=== PATIENT | male | born 1980 | race African-American/Black ===

== ENCOUNTER 2025-01-07 10:59 | Outpatient (AMB) | payer OTHER, SELFPAY ==
--- NOTE | 2025-01-07 11:05 | HO.NEPHOV ---
Vital Signs 01/07/25 11:11 Height 6 ft 2 in Weight 336 lb BMI 43.1 BP 140/100 H Blood Pressure Location Lt brachial Position Sitting Pulse 78 Pulse Source Pulse Oximeter Pulse Oximetry (%) 97 Oxygen Delivery Method Room Air Intake Visit Reasons: ENP: NORY-Manjeet [employer] Agent Required: No Accompanied by: Self / Same As Patient Allergies No Known Allergies Allergy (Verified 01/19/25 09:31) HPI Comments Details: I had the pleasure of seeing Sangeeta in consultation for chronic kidney disease and hypertension. He recently had a hospitalization due to acute on chronic systolic heart failure , hypertensive emergency, pulmonary edema as well as acute kidney injury. He had been noncompliant with medications prior to this. He has high BMI and has obstructive sleep apnea. He is prediabetic. His recent echocardiogram showed moderate global hypokinesis. He has been started on labetalol, amlodipine, isosorbide, Lasix and Farxiga. He also had been referred to Pulmonary. His serum creatinine was 2.78 during his recent hospitalization which had improved to 1.6 at discharge. He is trying to be compliant with the diet and medications. He denies chest pain, shortness of breath, paroxysmal nocturnal dyspnea, urinary symptoms or orthostasis. He denies taking nonsteroidal anti-inflammatories on a regular basis. He does not have any epistaxis, hemoptysis, hematemesis, melena, joint swellings. He denies having any proteinuria. He is concerned about his systolic heart failure as well as CKD. [facility] Medical History (Updated 01/25/25 @ 20:42 by Jamin Montague MD) Pre-diabetes Hypertriglyceridemia MARANDA (obstructive sleep apnea) Morbid obesity Surgical History (Updated 01/07/25 @ 11:07 by Jodee Guillory MA) History of ankle surgery Family History (Updated 01/07/25 @ 11:08 by Jodee Guillory MA) Mother Thyroid disease Maternal Grandmother Diabetes Hypertension Kidney disease Social History (Updated 01/19/25 @ 09:36 by Zofia Head LPN) Alcohol intake: never Patient Tobacco Use Status: Former Tobacco user Substance Use Type: Marijuana Review of Systems Const All systems reviewed & are unremarkable except as noted in HPI and below Physical Exam Vital Signs: Last Vital Signs Pulse 78 01/07/25 11:11 BP 140/100 H 01/07/25 11:11 Pulse Ox 97 01/07/25 11:11 Oxygen Delivery Method Room Air 01/07/25 11:11 BMI result Body Mass Index 43.1 Const General: comfortable and no acute distress Orientation/consciousness: patient oriented x3 HEENT Head: Yes normocephalic Mouth: Normal oral and palatal mucosa present Eyes EOM: EOMs intact bilaterally Neck Neck: Yes supple Resp Auscultation: clear to auscultation bilaterally Cardio Jugular venous distension: no JVD Rate: regular rate GI Palpation (GI): Soft to palpation Auscultation: normal bowel sounds General: Yes no CVA tenderness Back/Spine/Pelvis Back: no CVA tenderness Skin General skin exam: no rashes or lesions noted Neuro General: patient oriented x3 and moves all extremities Extrem General: Yes no pedal edema Results Reviewed Nephrology Results: No Data to Display Assessment & Plan Assessment & Plan (1) NORY (acute kidney injury): Code(s): N17.9 - Acute kidney failure, unspecified Category: Medical (2) CKD stage 3a, GFR 45-59 ml/min: Code(s): N18.31 - Chronic kidney disease, stage 3a Category: Medical (3) Hypertension: Code(s): I10 - Essential (primary) hypertension Category: Medical Qualifiers: Hypertension type: primary hypertension Qualified Code(s): I10 - Essential (primary) hypertension Plan Chad has baseline CKD stage 3 from hypertensive nephropathy. He has history of systolic heart failure. His recent ejection fraction was 35%. He recently had NORY on CKD due to cardiorenal syndrome. At that time he was in hypertensive emergency, pulmonary edema and NORY. With the diuresis and continued supportive care his serum creatinine has settled to baseline of 1.6. He is unsure whether he has proteinuria. He is on appropriate medications. He needs to lose weight, keep up with a low-sodium diet, be compliant with his medications as well as CPAP. We need to rule out any infiltrative myocardial disease given systolic dysfunction as well as CKD. We shall continue to optimize his medications to keep his blood pressure at goal and preserve his renal function. He will be a great candidate for GLP agonist. All these have been explained in detail. Follow-up lab work has been ordered and answered all questions Orders: Orders Electrolytes 3 Weeks N17.9 - Acute kidney failure, unspecified, N18.31 - Chronic kidney disease, stage 3a, I10 - Essential (primary) hypertension Blood Urea Nitrogen 3 Weeks N17.9 - Acute kidney failure, unspecified, N18.31 - Chronic kidney disease, stage 3a, I10 - Essential (primary) hypertension Creatinine 3 Weeks N17.9 - Acute kidney failure, unspecified, N18.31 - Chronic kidney disease, stage 3a, I10 - Essential (primary) hypertension Complete Blood Count Auto Diff 3 Weeks N17.9 - Acute kidney failure, unspecified, N18.31 - Chronic kidney disease, stage 3a, I10 - Essential (primary) hypertension Immunofixation, Random Urine 3 Weeks N17.9 - Acute kidney failure, unspecified, N18.31 - Chronic kidney disease, stage 3a, I10 - Essential (primary) hypertension Calcium 3 Weeks N17.9 - Acute kidney failure, unspecified, N18.31 - Chronic kidney disease, stage 3a, I10 - Essential (primary) hypertension Immunofixation Pnl, Serum 3 Weeks N17.9 - Acute kidney failure, unspecified, N18.31 - Chronic kidney disease, stage 3a, I10 - Essential (primary) hypertension Protein Creatinine Ratio, Ur 3 Weeks N17.9 - Acute kidney failure, unspecified, N18.31 - Chronic kidney disease, stage 3a, I10 - Essential (primary) hypertension Coding Level of Care Code New Pt Level 4 (03413) Diagnoses NORY (acute kidney injury) N17.9 CKD stage 3a, GFR 45-59 ml/min N18.31 Primary hypertension I10 Hypertension type: primary hypertension
[2025-01-07 11:11] VITALS: BP 140/100; PULSE 78; O2SAT 97; BMI 43.1
== END 2025-01-07 11:50 | disposition home or self-care (01) ==
LOC: HO.HKAS 10:59
PROVIDERS: PCP Internal Medicine; Visit Provider Internal Medicine Nephrology
DX: N17.9 Acute kidney failure, unspecified (principal); N18.31 Chronic kidney disease, stage 3a; I10 Essential (primary) hypertension
CPT/HCPCS: 99204

== ENCOUNTER → 2025-01-07 10:59 | Outpatient (BNVA) | payer OTHER, SELFPAY | PROVIDERS: PCP Internal Medicine; Visit Provider Internal Medicine Nephrology | DX: I12.9 Hypertensive chronic kidney disease with stage 1 through stage 4 chronic kidney disease, or unspecified chronic kidney disease (principal); N18.31 Chronic kidney disease, stage 3a; N17.9 Acute kidney failure, unspecified | CPT/HCPCS: 99202 ==

== ENCOUNTER 2025-01-19 09:11 | Outpatient (AMB) | payer OTHER, SELFPAY ==
[2025-01-19 09:26] VITALS: BP 156/88; PULSE 84; O2SAT 98; BMI 42.9
--- NOTE | 2025-01-19 09:26 | A.OFFVIS_ITS ---
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 Engineer Required: No Shed Hand: Shed Hand offered & declined Accompanied by: Self / Same As Patient Allergies No Known Allergies Allergy (Verified 01/19/25 09:31) Medication List - Last Reconciled 01/19/25 by Zofia Head LPN amlodipine 10 mg PO DAILY dapagliflozin propanediol (Farxiga) 10 mg PO DAILY furosemide 20 mg PO DAILY hydralazine 25 mg PO TID isosorbide mononitrate ER 30 mg PO BID labetalol 200 mg PO BID spironolactone 25 mg PO DAILY HPI HPI Obstructive sleep apnea: Details: Sangeeta is a pleasant 44 year old male, former smoker with less than 5 pack year history, with underlying severe MARANDA, HTN and CHF LVEF 30-35%. He was referred by PCP for pulmonary evaluation for MARANDA. His last sleep study was in 2013 which revealed severe MARANDA, AHI 76, and started on CPAP therapy. Unfortunately patient has been without CPAP therapy reportedly due to supply issues, recently admitted for possible cardiorenal failure. He is under the care of cardiology and nephrology. He currently has a Resmed Airsense 11, from 3 years ago he believes, which he brought into office today missing tubing. Reviewed Airview shadia which reflected last use in March/April 2024, revealing compliance at that time. He is unaware of recommended pressures but states he has self adjusted to [id number]. When he was previously using consistently he was benefitting from therapy. He currently denies any respiratory symptoms. [facility] Medical History (Updated 01/19/25 @ 16:42 by Kimberly Larson NP) Pre-diabetes Hypertriglyceridemia MARANDA (obstructive sleep apnea) Morbid obesity Surgical History (Updated 01/07/25 @ 11:07 by Jodee Guillory MA) History of ankle surgery Family History (Updated 01/07/25 @ 11:08 by Jodee Guillory MA) Mother Thyroid disease Maternal Grandmother Diabetes Hypertension Kidney disease Social History (Updated 01/19/25 @ 09:36 by Zofia Head LPN) Alcohol intake: never Patient Tobacco Use Status: Former Tobacco user Substance Use Type: Marijuana Review of Systems Const Denies chills, Denies excessive sweating, Denies fever(s), Denies headache(s) and Denies night sweats Eyes Denies dry eyes, Denies irritation and Denies itchy eyes ENT Reports Normal hearing present, Denies headache(s), Denies nasal congestion, Denies nasal discharge, Denies post nasal drip and Denies sore throat Card Denies chest pain, Denies chest pain at rest, Denies chest pain with activity, Denies claudication, Denies leg edema, Denies dyspnea, Denies dyspnea on exertion, Denies orthopnea and Denies paroxysmal nocturnal dyspnea Resp Denies chest congestion, Denies cough, Denies excessive phlegm production, Denies pain on inspiration, Denies pain with cough, Denies dyspnea, Denies dyspnea on exertion, Denies stridor and Denies wheezing Musc Denies myalgias Neuro Reports Normal hearing present and Denies headache(s) Endo Denies excessive sweating Sampson/Lymph Denies lymphadenopathy Aller/Immun Denies itchy eyes, Denies seasonal rhinorrhea and Denies wheezing Physical Exam Vital Signs: Last Vital Signs Pulse 84 01/19/25 09:26 BP 156/88 H 01/19/25 09:26 Pulse Ox 98 01/19/25 09:26 Oxygen Delivery Method Room Air 01/19/25 09:26 BMI result Body Mass Index 42.9 Const General: cooperative, healthy appearing, comfortable, no acute distress, well developed and alert Nutritional Appearance: obese Orientation/consciousness: patient oriented x3 Limitations: no limitations HEENT Head: Yes normal to inspection, Yes normocephalic and Yes atraumatic Ears: hearing grossly normal bilaterally and external ears normal Eyes General: appearance normal, both eyes and all related structures Eyelids: Yes eyelids normal Sclerae: sclerae normal EOM: EOMs intact bilaterally Neck Neck: Yes normal visual inspection and Yes no lymphadenopathy Lymphatic: no lymphadenopathy noted Chest Chest palpation & inspection: normal inspection of the chest Resp Effort & Inspection: normal respiratory effort, able to speak in complete sentences, no audible wheezes, no cough, no stridor, not tachypneic, no tripod positioning and no use of accessory muscles Auscultation: clear to auscultation bilaterally Cardio Jugular venous distension: no JVD Rate: regular rate Rhythm: regular rhythm Skin Other: warm, dry General skin exam: no rashes or lesions noted Neuro General: patient oriented x3 Cranial nerves: Yes Normal hearing present Cognition (Neuro): normal cognition Gait exam (Neuro): Normal gait present Extrem General: Yes normal to inspection, Yes capillary refill normal, Yes no clubbing, cyanosis or edema and Yes no pedal edema Psych Appearance: grossly normal and well kempt Speech and movement: Normal speech and movement present and Clear speech present Affect: normal affect Attitude: cooperative Thought process: Normal thought process present Thought content: Normal thought content present Insight: Good insight present (Psych) Judgement: Good judgement present (Psych) Assessment & Plan Assessment & Plan (1) Severe obstructive sleep apnea: Code(s): G47.33 - Obstructive sleep apnea (adult) (pediatric) Category: Medical (2) Daytime somnolence: Code(s): R40.0 - Somnolence Category: Medical Plan Sangeeta presents for pulmonary evaluation for known h/o severe MARANDA. He is motivated to be compliant but will need updated sleep study to ensure optimal pressures as well as supply order. Will send for repeat home sleep study, as he was reluctant to have in lab study. Prior study performed in 2013, and patient has lost approximately 50lbs since then, will likely need in lab titration study. All questions were answered and patient is in agreement of plan. Will follow up to review results or sooner if needed. Orders: Orders RT home sleep study Today R40.0 - Somnolence Coding Level of Care Code New Pt Level 3 (64843) Diagnoses Severe obstructive sleep apnea G47.33 Daytime somnolence R40.0
--- OUTSIDE RECORDS SUMMARY | 2025-01-19 10:07 | XMS_ITS | Encounter Summary ---
Author Organization [facility] Address [address] [place] [address] Care Team Providers Care Woven Paper Hat Mender Name Role Phone Jeff Vale MD Primary Care Provider [phone] Encounter Details Date Type Department Care Team (Late st Contact Info) Description 12/29/2024 Telephone Internal Medicine - [place] [address] [place] [phone] Jeff Vale MD [address] [place] [address] Social History Tobacco Use Types Packs/Day Years Used Date Smoking Tobacco: Former Cigarettes Q uit: 10/14/2011 Alcohol Use Standard Drinks/Week Comments No 0 (1 standard drink = 0.6 oz pur e alcohol) Sex and Gender Information Value Date Recorded Sex Assigned at Not on file Legal Sex Male 5:39 PM EST Gender Identity Not on file Sexual Orientation Not on file documented as of this encounter Progress Notes * Renee Rg MA - 12/29/2024 3:20 PM EDT -Last office notes and insurance inf faxed to [facility] Fax: -[phone] * Jenifer Fernando - 12/29/2024 2:52 PM EDT Fax to [facility] Last office Copy of insurance card Fax- [phone] documented in this encounter Plan of Treatment Upcoming Encounters Date Type Department Care Team (Late st Contact Info) Description 03/24/2025 3:00 PM EDT Appointment [facility] Endoscopy [address] [place] [phone] Jeet Galaviz DO [address] [place] [address] 06/07/2025 10:00 AM EDT Ancillary Procedure [facility] Cardiology [facility] [address] [place] [phone] 07/21/2025 10:10 AM EDT Office Visit [facility] Cardiology [facility] [address] [place] [phone] Deep Albrecht NP [address] [place] [address] [address] [place] [address] documented as of this encounter Visit Diagnoses Not on filedocumented in this encounter Additional Health Concerns Infection Onset Date Last Indicated Resolved Time COVID-19 12/09/2024 12/09/2024 01/08/2025 7:06 PM EDT documented as of this encounter Care Teams Woven Paper Hat Mender Relationship Specialty Start Date End Date Jeff Vale MD [address] [facility] [address] [place] [address] PCP - General Internal Medicine 12/02/24 documented as of this encounter
--- OUTSIDE RECORDS SUMMARY | 2025-01-19 10:07 | XMS_ITS | Clinical Summary ---
Author Organization [facility] Address [address] [address] Phone Care Team Providers Care Veneer Measurer Name Role Phone Jose Etienne Reid DO Primary Care Provide r Allergies Active Allergy Reactions Criticality Noted Date Comments Pollen Extract Other (see comments) 11/22/2020 Medications amLODIPine (NORVASC) 10 MG tablet Take 1 tablet (10 mg total) by mouth 1 (one) time each day 90 tablet 3 03/01/2021 Active lisinopril (PRINIVIL,ZESTRI L) 30 MG tablet Take 1 tablet (30 mg total) by mouth 1 (one) time each day 90 tablet 3 03/01/2021 Active Active Problems Problem Noted Date Diagnosed Date Morbid obesity 12/28/2020 Hypertensive nephrosclerosis 12/28/2020 Obstructive sleep apnea syndrome 12/28/2020 Proteinuria, not otherwise specified 12/28/2020 Acute kidney failure, not otherwise specified Stage 3a chronic kidney disease 11/22/2020 Hypertension 11/22/2020 Resolved Problems Problem Noted Date Diagnosed Date Resolved Date Hypertensive renal disease 11/22/2020 0 03/01/2021 Renal function tests outside reference range 12/28/2020 Family History Relation Status Comments Father Unknown Mother Unknown Social History Tobacco Use Types Packs/Day Years Used Date Smoking Tobacco: Never Smokeless Tobacco: Never Alcohol Use Standard Drinks/Week Comments Yes 0 (1 standard drink = 0.6 oz pur e alcohol) Sex and Gender Information Value Date Recorded Sex Assigned at Not on file Legal Sex Male 4:58 PM EST Gender Identity Not on file Sexual Orientation Not on file Last Filed Vital Signs Vital Sign Reading Time Taken Comments Blood Pressure 156/82 03/01/2021 11:45 AM EDT Pulse 96 03/01/2021 11:45 AM EDT Temperature - - Respiratory Rate - - Oxygen Saturation 97% 03/01/2021 11:45 AM EDT Inhaled Oxygen Concentration - - Weight 153 kg (337 lb) 03/01/2021 11:45 AM EDT Height 185.4 cm (6' 1 ) 03/01/2021 11:45 AM EDT Body Mass Index 44.46 03/01/2021 11:45 AM EDT Plan of Treatment Health Maintenance Due Date Last Done Comments Pneumococcal Vaccine: Pediat rics (0 to 5 Years) and At-Risk Patients (6 to 64 Years) (1 of 2 - PCV) 1986 Hepatitis B Vaccine (1 of 3 - 19+ 3-dose series) 09/11 Influenza Vaccine (Season Ended) 2025 Procedures Procedure Name Priority Date/Time Associated Diagnosis Comments BASIC METABOLIC PANEL (BMP) (EXTERNAL LAB ENTRY) Routine 12/21/2024 BASIC METABOLIC PANEL (BMP) (EXTERNAL LAB ENTRY) Routine 12/12/2024 BASIC METABOLIC PANEL (BMP) (EXTERNAL LAB ENTRY) Routine 12/09/2024 from Last 3 Months Results * Basic Metabolic Panel (BMP) (12/21/2024) Only the most recent of3 resultswithin the time period is included. Sodium 141 mEq/L Potassium 4.7 mEq/L Chloride 106 Carbon Dioxide 18 mmol/L BUN 30 mg/dL Creatinine 2.35 mg/dL Glucose 74 mg/dL eGFR Non-Afr [place]orran 34 12/21/2024 us Historical Provider LAB BLOOD ORDERABLES Elisabet l Result from Last 3 Months Insurance [facility] MEDICAID Care Teams Veneer Measurer Relationship Specialty Start Date End Date Etienne Wharton DO [address] [facility] [address] [place] [address] PCP - General Internal Medicine 03/01/21
--- OUTSIDE RECORDS SUMMARY | 2025-01-19 10:07 | XMS_ITS | Clinical Summary ---
Author Organization [address] [facility] Address [address] [place] [phone] Phone Care Team Providers Care Project Engineering Director Name Role Phone Jeff Vale MD Primary Care Provider [phone] Allergies Active Allergy Reactions Criticality Noted Date Comments Bee Pollen Other 11/22/2020 Medications amLODIPine (NORVASC) 10 mg tablet Take 1 tablet (10 mg total) by mouth 1 (one) time each day. Active dapagliflozin propanediol (FARXIGA) 10 mg tablet Take 1 tablet (10 mg total) by mouth 1 (one) time each day. Active furosemide (LASIX) 20 mg tablet Take 1 tablet (20 mg total) by mouth 1 (one) time each day. Active isosorbide dinitrate (ISORDIL) 30 mg tablet Take 1 tablet (30 mg total) by mouth 1 (one) time each day. Active spironolactone (ALDACTONE) 25 mg tablet Take 1 tablet (25 mg total) by mouth 1 (one) time each day. Active labetaloL (NORMODYNE) 200 mg tablet Take 1 tablet (200 mg total) by mouth 2 (two) times a day. 60 each 12/24/19 25 026 Active losartan (Cozaar) 50 mg tablet Take 1 tablet (50 mg total) by mouth 1 (one) time each day. 30 each 12/31/19 026 Active Additional Information Patient not taking.Reported on 01/05/2025 hydrALAZINE (APRESOLINE) 25 mg tablet Take 1 tablet (25 mg total) by mouth 3 (three) times a day. Active acetaminophen (TYLENOL) 325 mg tablet Take 1 tablet (325 mg total) by mouth every 4 (four) hours if needed for mild pain. 025 Discontinued(T herapy completed) amoxicillin (AMOXIL) 500 mg capsule Take 1 capsule (500 mg total) by mouth every 12 (twelve) hours. 2 times a day for 5 days 025 Discontinued(T herapy completed) benzocaine (AMERICAINE) 20 % topical spray Apply 1 spray topically if needed for mild pain. 025 Discontinued(T herapy completed) metoprolol tartrate (LOPRESSOR) 50 mg tablet Take 1 tablet (50 mg total) by mouth 1 (one) time each day. 025 Discontinued Active Problems Problem Noted Date Diagnosed Date Stage 3 chronic kidney disease 01/05/2025 Assessment & Plan (01/05/2025 1:00 PM EDT): He is followed by Dr. Jennings of the nephrology service. Recent blood tests were completed at [facility]. A note will be sent to his blower room attendant regarding his condition. He sees Dr. Montague later this week. Consideration should be given to starting Entresto with close monitoring of renal parameters. Acute systolic CHF (congestive heart failure) Assessment & Plan (01/05/2025 1:00 PM EDT): His cardiac function has been compromised, likely due to uncontrolled hypertension, leading to a reduced ejection fraction of approximately 30 to 35 percent. Overt CHF has responded well to meds. He is on GDMT other than ARNI, pending ongoing nephrologic assessment. The importance of maintaining a healthy lifestyle, including regular exercise and a balanced diet, was emphasized. He was advised to monitor his blood pressure regularly and record the readings in his phone for easy access and tracking. The significance of adhering to his prescribed medication regimen was discussed. He was also encouraged to purchase a digital scale for daily weight monitoring. A repeat echocardiogram will be scheduled in the coming months to assess his cardiac function. A note will be sent to his blower room attendant and primary care physician regarding his condition. Orders: Transthoracic echocardiogram (TTE) complete with PRN contrast, bubble, strain, and 3D order panel; Future Morbid obesity 12/03/2024 Assessment & Plan (01/05/2025 1:00 PM EDT): MARANDA (obstructive sleep apnea) 12/03/2024 Assessment & Plan (01/05/2025 1:00 PM EDT): He was informed that replacement parts for his CPAP machine can be purchased on [employer]. He was advised to contact [facility] for further assistance with his CPAP machine. Hypertriglyceridemia 12/03/2024 Pre-diabetes 12/03/2024 Assessment & Plan (01/05/2025 1:00 PM EDT): Encounters Date Type Department Care Team Description 01/06/2025 Telephone Internal Medicine [address] [phone] Jeff Vale MD Joseph: Fax Sleep study 01/05/2025 10:20 AM EDT Office Visit [facility] [address] [place] [address] Dr [address] [place] [phone] Troy Pederson MD Morbid obesity (CMS/HCC) (Primary Dx); Acute systolic CHF (congestive heart failure) (CMS/HCC); MARANDA (obstructive sleep apnea); Pre-diabetes; Acute systolic congestive heart failure (CMS/HCC); Hospital discharge follow-up; Stage 3 chronic kidney disease, unspecified whether stage 3a or 3b CKD (CMS/HCC) 12/30/2024 9:15 AM EDT Office Visit Internal Medicine [address] [place] [phone] Jeff Vale MD Adult general medical examination (Primary Dx); Acute systolic congestive heart failure (CMS/HCC); Primary hypertension; Screening for colon cancer; NORY (acute kidney injury) (CMS/HCC) 12/29/2024 Telephone Internal Medicine [facility] 175 [facility] 200 [place] [address] Jeff Vale MD 12/23/2024 1:30 PM EDT Office Visit Internal Medicine [facility] 175 [facility] 200 [place] [phone] Jeff Vale MD Acute systolic congestive heart failure (CMS/HCC) (Primary Dx); MARANDA (obstructive sleep apnea); Morbid obesity (CMS/HCC); NORY (acute kidney injury) (CMS/HCC); Hospital discharge follow-up 12/16/2024 Telephone Internal Medicine - [place] 175 [facility] 200 [place] [address] Jeff Vale MD Hospital Follow-up 12/09/2024 11:15 AM EST Office Visit [facility] [address] [phone] Christie Rahman NP Strep pharyngitis (Primary Dx); Upper respiratory tract infection, unspecified type from Last 3 Months Immunizations Name Administration Dates Next Due Tdap Tetanus diptheria acell ular pertussis (Boostrix; Adacel) 7yo and older 06/02/2014 Surgical History Surgery Date Site/Laterality Comments OTHER SURGICAL HISTORY 1994 PROCEDURE: ---- OTHER ----; COMMENT: Right tib/fib Medical History Medical History Date Comments Morbid obesity (CMS/HCC) 04/28/2014 DX:Morb id obesity ([facility]) MARANDA (obstructive sleep apnea) 05/11/2014 DX :MARANDA (obstructive sleep apnea); COMMENT: Sleep study - 05/08/14 - severe degree of sleep apnea, relieved with the use of nasal CPAP; CPAP 12 cm H2O recommended Chronic kidney disease, stag e 3 (CMS/HCC) Sepsis (CMS/HCC) secondary to ac [place] bilateral tonsillitis Dysphagia Acute hypoxic respiratory failure Family History Medical History Relation Name Comments Diabetes Maternal Grandmother Thyroid disease Mother Relation Name Status Comments Brother Unknown Daughter Alive Healthy Father Alive Unknown Grandparent DM Maternal Grandmother Mother Alive Thyroid issues Sister 1 Alive Healthy Sister 2 Unknown Son Alive Healthy Social History Tobacco Use Types Packs/Day Years Used Date Smoking Tobacco: Former Cigarettes Q uit: 10/14/2011 Alcohol Use Standard Drinks/Week Comments Not Currently 0 (1 standard drink = 0.6 oz pur e alcohol) Rarely Sex and Gender Information Value Date Recorded Sex Assigned at Not on file Legal Sex Male 5:39 PM EST Gender Identity Not on file Sexual Orientation Not on file Obstetrics History Last Filed Vital Signs Vital Sign Reading Time Taken Comments Blood Pressure 130/100 01/05/2025 10:20 AM EDT Pulse 77 01/05/2025 10:20 AM EDT Temperature 36.4 ??C (97.5 ??F) 12/30/2024 9:17 AM ED T Respiratory Rate - - Oxygen Saturation 97% 01/05/2025 10:20 AM EDT Inhaled Oxygen Concentration - - Weight 151 kg (331 lb 12.8 oz) 01/05/2025 10:20 AM EDT Height 188 cm (6' 2 ) 01/05/2025 10:20 AM EDT Body Mass Index 42.6 01/05/2025 10:20 AM EDT Plan of Treatment Upcoming Encounters Date Type Department Care Team (Late st Contact Info) Description 03/24/2025 3:00 PM EDT Appointment [facility] Endoscopy [address] [place] [phone] Jeet Galvaiz DO 175 [facility] 200 [place] [address] 06/07/2025 10:00 AM EDT Ancillary Procedure [facility] Cardiology [facility] [address] [facility] 101 [place] [address] 07/21/2025 10:10 AM EDT Office Visit [facility] Cardiology [facility] [address] [place] [address] [address] [place] [address] Deep Albrecht NP [address] [place] [address] [address] [place] [address] Health Maintenance Due Date Last Done Comments COVID-19 Vaccine (#1) 1984 Hepatitis B Vaccines (1 of 3 - 19+ 3-dose series) 1998 DTaP,Tdap,and Td Vaccines (2 - Td or Tdap) 06/02/2024 06/02/2014 Cholesterol Screening (Lipid Panel) 12/02/2024 04/17/2016 Colorectal Cancer Screening: Colonoscopy 12/02/2024 Depression Screening 12/02/2024 Social Influencers of Health Screening 12/02/2024 Hypertension/CHF/CAD Annual BMP Blood Test 12/10/2024 04/28/2014 Influenza Vaccine (Season Ended) 2025 HIV Screening Completed 06/02/2014 Hepatitis C Screening Completed 06/02/2014 HIB Vaccines Aged Out No longer eligi ble based on patient's age to complete this topic HPV Vaccines Aged Out No longer eligi ble based on patient's age to complete this topic Hepatitis A Vaccines Aged Out No long er eligible based on patient's age to complete this topic IPV Vaccines Aged Out No longer eligi ble based on patient's age to complete this topic MMR Vaccines Aged Out No longer eligi ble based on patient's age to complete this topic Meningococcal ACWY Vaccine Aged Out N o longer eligible based on patient's age to complete this topic Meningococcal B Vaccine Aged Out No l onger eligible based on patient's age to complete this topic Pneumococcal Vaccine: Pediat rics (0 to 5 Years) and At-Risk Patients (6 to 64 Years) Aged Out No longer eligi ble based on patient's age to complete this topic RSV Immunization Patients Un elena 20 months Aged Out No longer eligible b ased on patient's age to complete this topic Varicella Vaccines Aged Out No longer eligible based on patient's age to complete this topic Procedures Procedure Name Priority Date/Time Associated Diagnosis Comments EXTERNAL ECHO Routine 12/10/2024 10:11 AM EST POC RAPID [id number], MOLECULAR Routine 12/09/2024 1:10 PM EST Upper respiratory tract infection, unspecified type POC RAPID STREP A Routine 12/09/2024 1:0 9 PM EST Upper respiratory tract infection, unspecified type LIPID PANEL Routine 04/17/2016 HEPATITIS C SCREENING Routine 06/02/2014 HIV SCREENING Routine 06/02/2014 ANNUAL BMP BLOOD TEST Routine 04/28/2014 from Last 3 Months or Most Recently Relevant to Health Maintenance Results * External Echo (12/10/2024 10:11 AM EST) Anatomical Region Laterality Modality Ultrasound Result [facility] Provider CV ECHO PROCEDURES Final Result * (ABNORMAL) Poc Rapid [id number], MOLECULAR (12/09/2024 1:10 PM EST) [facility] COVID-19/SARS- COV-2 Rapid POC Negative Negative Swab Nasopharyngeal structure / Unknown 12/09/2024 1:10 PM EST Result [facility] Christie Rahman NP POINT OF CARE TEST ENTER/EDIT ORDERABLES Edited Result - Final * (ABNORMAL) POC rapid strep A manually resulted (12/09/2024 1:09 PM EST) [facility] Rapid Strep A Screen POC Positive(A ) Negative Swab Structure of anterior portion of neck / Unknown 12/09/2024 1:09 PM EST Result [facility] Christie Rahman NP POINT OF CARE TEST ENTER/EDIT ORDERABLES Final Result * (ABNORMAL) Lipid panel (04/17/2016) [facility] LDL/HDL Ratio 5(A) 0 - 4 Triglycerides 112 0 - 150 mg/dL Cholesterol 200 0 - 200 mg/dL HDL 39(A) >=40 mg/dL LDL Cholesterol 139(A) 0 - 100 mg/dL Blood Venous blood specimen / Unknown Result [facility] Provider LAB BLOOD ORDERABLES Elisabet l Result * HIV Screening (06/02/2014) [facility] HIV Screening Abstracted Result [facility] Provider HEALTH MAINTENANCE Final Result * Hepatitis C Screening (06/02/2014) [facility] Hepatitis C Screening Abstracted Result [facility] Provider HEALTH MAINTENANCE Final Result * Annual BMP Blood Test (04/28/2014) [facility] Annual BMP Blood Test Abstracted us Historical Provider HEALTH MAINTENANCE Final Result from Last 3 Months or Most Recently Relevant to Health Maintenance [place] [address] [address] PLAN Care Teams Project Engineering Director Relationship Specialty Start Date End Date Jeff Vale MD [address] [phone] PCP - General Internal Medicine 12/02/24
== END 2025-01-19 10:34 | disposition home or self-care (01) ==
LOC: HO.HPSW 09:11
PROVIDERS: PCP Internal Medicine; Visit Provider Nurse Practitioner Family
DX: G47.33 Obstructive sleep apnea (adult) (pediatric) (principal); R40.0 Somnolence
CPT/HCPCS: 99203

== ENCOUNTER → 2025-01-19 09:11 | Outpatient (BNVA) | payer OTHER, SELFPAY | PROVIDERS: PCP Internal Medicine; Visit Provider Nurse Practitioner Family | DX: G47.33 Obstructive sleep apnea (adult) (pediatric) (principal); R40.0 Somnolence | CPT/HCPCS: 99202 ==

== ENCOUNTER 2025-02-02 11:49 | Outpatient (REF) | payer OTHER, SELFPAY ==
--- OUTSIDE RECORDS SUMMARY | 2025-02-02 14:19 | XMS_ITS | Encounter Summary ---
Author Organization [facility] Address [address] [place] [address] Care Team Providers Care Casino Slot Supervisor Name Role Phone Jeff Vale MD Primary Care Provider [phone] Encounter Details Date Type Department Care Team (Late st Contact Info) Description 12/29/2024 Telephone Internal Medicine - [place] [address] [place] [phone] Jeff Vale MD [address] [place] [address] Social History Tobacco Use Types Packs/Day Years [...] inf [facility] to [facility] Fax: [phone] * Jenifer Fernando - 12/29/2024 2:52 PM EDT [facility]ax to [facility] Last office Copy of insurance card Fax- [phone] documented in this encounter Plan of Treatment Upcoming Encounters Date Type Department Care Team (Late st Contact Info) Description 03/24/2025 3:00 PM EDT Appointment [facility] Endoscopy [address] [place] [phone] Jeet Galaviz DO [address] [place] [address] 06/07/2025 10:00 AM EDT Ancillary Procedure [facility] [address] [place] [phone] 07/21/2025 10:10 AM EDT Office Visit [facility] - [address] [place] [phone] Deep Albrecht NP [address] [place] [address] [address] [place] [address] documented as of this encounter Visit Diagnoses Not on filedocumented in this encounter Additional Health Concerns Infection Onset Date Last Indicated Resolved Time COVID-19 12/09/2024 12/09/2024 01/08/2025 7:06 PM EDT documented as of this encounter Care Teams Casino Slot Supervisor Relationship Specialty Start Date End Date Jeff Vale MD 175 [facility] [address] [place] [address] PCP - General Internal Medicine 12/02/24 documented as of this encounter
--- OUTSIDE RECORDS SUMMARY | 2025-02-02 14:19 | XMS_ITS | Clinical Summary ---
Author Organization [address] [facility] Address [address] [place] [phone] Phone Care Team Providers Care Supervisor Hydrochloric Area Name Role Phone Jeff Vale MD Primary Care Provider [phone] Allergies Active Allergy Reactions Criticality Noted Date [...] 2 (two) times a day. 60 each 5 12/24/19 26 Active losartan (Cozaar) 50 mg tablet Take 1 tablet (50 mg total) by mouth 1 (one) time each day. 30 each 5 12/31/19 26 Active Additional Information Patient not taking.Reported on 01/05/2025 hydrALAZINE (APRESOLINE) 25 mg tablet Take 1 tablet (25 mg total) by mouth 3 (three) times a day. Active Active Problems Problem Noted Date Diagnosed Date Stage 3 chronic kidney disease ([facility] V24, [facility] V28) 01/05/2025 Assessment & Plan (01/05/2025 1:00 PM EDT): He is followed by Dr. Jennings of the nephrology service. Recent blood tests were completed at [facility]. A note will be sent to his radiographer angiogram regarding his condition. He sees Dr. Montague later this week. Consideration should be given to starting Entresto with close monitoring of renal parameters. Acute systolic CHF (congesti ve heart failure) ([facility] V24, [facility] V28) 12/31/2024 Assessment & Plan (01/05/2025 1:00 PM EDT): [...] A note will be sent to his radiographer angiogram and primary care physician regarding his condition. Orders: Transthoracic echocardiogram (TTE) complete with PRN contrast, bubble, strain, and 3D order panel; Future Morbid obesity ([facility] V24, [facility] V28) 2024 Assessment & Plan (01/05/2025 1:00 PM EDT): MARANDA (obstructive sleep apnea) 12/03/2024 Assessment & Plan (01/05/2025 1:00 PM EDT): He was informed that replacement parts for his CPAP machine can be purchased on [employer]. He was advised to contact [facility] for further assistance with his CPAP machine. Hypertriglyceridemia 12/03/2024 Pre-diabetes 12/03/2024 Assessment & Plan (01/05/2025 1:00 PM EDT): Encounters Date Type Department Care Team Description 01/06/2025 Telephone Internal Medicine [facility] 175 [facility] 200 [place] [address] Jeff Vale MD Joseph: Fax Sleep study 01/05/2025 10:20 AM EDT Office Visit [facility] [address] [facility] [address] [place] [phone] Troy Pederson MD Morbid obesity ([facility] V24, [facility] V28) (Primary Dx); Acute systolic CHF (congestive heart failure) ([facility] V24, [facility] V28); MARANDA (obstructive sleep apnea); Pre-diabetes; Acute systolic congestive heart failure ([facility] V24, CMS/[facility] V28); Hospital discharge follow-up; Stage 3 chronic kidney disease, unspecified whether stage 3a or 3b CKD ([facility] V24, [facility] V28) 12/30/2024 9:15 AM EDT Office Visit Internal Medicine [address] [phone] Jeff Vale MD Adult general medical examination (Primary Dx); Acute systolic congestive heart failure ([facility] V24, CMS/[facility] V28); Primary hypertension; Screening for colon cancer; NORY (acute kidney injury) ([facility] V24) 12/29/2024 Telephone Internal Medicine [facility] [address] [address] Jeff Vale MD 12/23/2024 1:30 PM EDT Office Visit Internal Medicine [address] [place] [phone] Jeff Vale MD Acute systolic congestive heart failure ([facility] V24, [facility] V28) (Primary Dx); MARANDA (obstructive sleep apnea); Morbid obesity ([facility] V24, [facility] V28); NORY (acute kidney injury) ([facility] V24); Hospital discharge follow-up 12/16/2024 Telephone Internal Medicine - [place] [address] [facility] [address] [place] [address] Jeff Vale MD Hospital Follow-up 12/09/2024 11:15 AM EST Office Visit [facility] - [address] [phone] Christie Rahman NP Strep pharyngitis (Primary Dx); Upper respiratory tract infection, unspecified type from Last 3 Months Immunizations Name Administration Dates Next Due Tdap Tetanus diptheria acell ular pertussis (Boostrix; Adacel) 7yo and older 06/02/2014 Surgical History Surgery Date Site/Laterality Comments OTHER SURGICAL HISTORY 1994 PROCEDURE: ---- OTHER ----; COMMENT: Right tib/fib Medical History Medical History Date Comments Morbid obesity ([facility] V24, [facility] V28) 04/28/2014 DX:Morbid obesity (HCC) MARANDA (obstructive sleep apnea) 05/11/2014 DX :MARANDA (obstructive sleep apnea); COMMENT: Sleep study - 05/08/14 - severe degree of sleep apnea, relieved with the use of nasal CPAP; CPAP 12 cm H2O recommended Chronic kidney disease, stag e 3 ([facility] V24, [facility] V28) Sepsis ([facility] V24, [facility] V28) secondary to acute bilateral tonsillitis Dysphagia Acute hypoxic respiratory fa ilure ([facility] V24, [facility] V28) Family History Medical History Relation Name Comments [...] Info) Description 03/24/2025 3:00 PM EDT Appointment [facility] Endoscopy [address] [facility] [place] [phone] Jeet Galaviz DO 175 [facility] [address] [place] [address] 06/07/2025 10:00 AM EDT Ancillary Procedure [facility] Cardiology [facility] [address] [place] [address] 07/21/2025 10:10 AM EDT Office Visit [facility] Cardiology [facility] [address] [facility] [address] [place] [address] Deep Albrecht NP [address] [place] [address] [address] [place] [address] Health Maintenance Due Date Last Done Comments [...] Routine 12/10/2024 10:11 AM EST POC RAPID [id number], MOLECULAR Routine 12/09/2024 1:10 PM EST Upper [...] AM EST) Anatomical Region Laterality Modality Ultrasound us Historical Provider MD CV ECHO PROCEDURES Final Result * (ABNORMAL) Poc Rapid [id number], MOLECULAR (12/09/2024 1:10 PM EST) [facility] COVID-19/SARS- COV-2 Rapid POC Negative Negative Swab Nasopharyngeal structure / Unknown 12/09/2024 1:10 PM EST Result [facility] Christie Rahman NP POINT OF CARE TEST ENTER/EDIT ORDERABLES Edited Result - Final * (ABNORMAL) POC rapid strep A manually resulted (12/09/2024 1:09 PM EST) [facility] Rapid Strep A Screen POC Positive(A ) Negative Swab Structure of anterior portion of neck / Unknown 12/09/2024 1:09 PM EST Result [facility] Christie Rahman NP POINT OF CARE TEST ENTER/EDIT ORDERABLES Final Result * (ABNORMAL) Lipid panel (04/17/2016) [facility] LDL/HDL Ratio 5(A) 0 - 4 Triglycerides 112 0 - 150 mg/dL Cholesterol 200 0 - 200 mg/dL HDL 39(A) >=40 mg/dL LDL Cholesterol 139(A) 0 - 100 mg/dL Blood Venous blood specimen / Unknown Result [facility] Provider LAB BLOOD ORDERABLES Elisabet l Result * HIV Screening (06/02/2014) [facility] HIV Screening Abstracted Result [facility] Werner [facility]INTENANCE Final Result * Hepatitis C Screening (06/02/2014) [facility] Hepatitis C Screening Abstracted Result [facility] Provider HEALTH MAINTENANCE Final Result * Annual BMP Blood Test (04/28/2014) [facility] Annual BMP Blood Test Abstracted Result [facility] Werner [facility] MAINTENANCE Final Result from Last 3 Months or Most Recently Relevant to Health Maintenance Insurance PLAN Care Teams Supervisor Hydrochloric Area Relationship Specialty Start Date End Date Jeff Vale MD [address] [place] [id number] PCP - General Internal Medicine 12/02/24
--- OUTSIDE RECORDS SUMMARY | 2025-02-02 14:19 | XMS_ITS | Clinical Summary ---
Author Organization [facility] Address [address] [address] Phone Care Team Providers Care French Teacher Name Role Phone Jose Etienne Reid DO [...] Health Maintenance Due Date Last Done Comments Hepatitis B Vaccine (1 of 3 - 19+ 3-dose series) 09/11 Pneumococcal Vaccine: Peds ( 0 to 5 Years) and At-Risk Patients (6 to 49 Years) (1 of 2 - PCV) 1998 Influenza Vaccine (Season Ended) 2025 Procedures Procedure [...] 2.35 mg/dL Glucose 74 mg/dL eGFR Non-Afr Surinamese 34 12/21/2024 us Historical Provider LAB BLOOD ORDERABLES Elisabet l Result from Last 3 Months Insurance [facility] Medicaid Care Teams French Teacher Relationship Specialty Start Date End Date Etienne Wharton DO [address] [facility] [address] [place] [address] PCP - General Internal Medicine 03/01/21
[2025-02-02 18:23] LABS: MANUAL DIFF FLAG NO
[2025-02-02 18:34] LABS: Anion Gap 12 (12-20); Basophils Percent Auto 0.7 % (0-2); Blood Urea Nitrogen 32 mg/dL (9-16); Carbon Dioxide 25 mmol/L (22-29); Chloride 106 mmol/L (96-108); Eosinophils Absolute Auto 0.2 X10*3/uL (0.0-0.4); Eosinophils Percent Auto 4.3 % (0-4); Estimated Glomerular Filt Rate 32; Hematocrit 48.9 % (42.0-52.0); Hemoglobin 15.3 g/dl (14.0-18.0); Imm Gran Abs Auto 0.01 X10*3/uL (0.00-0.03); Imm Gran Pct Auto 0.2 % (0.0-0.4); Lymphocytes Absolute Auto 2.2 X10*3/uL (1.2-4.9); Lymphocytes Percent Auto 51.3 % (20-40); Mean Corpuscular HGB Conc 31.3 g/dl (31.0-36.0); Mean Corpuscular Hemoglobin 24.4 pg (27.0-33.0); Mean Corpuscular Volume 78.1 fL (80.0-98.0); Mean Platelet Volume 10.3 fL (9.4-12.4); Monocytes Absolute Auto 0.3 X10*3/uL (0.1-1.2); Monocytes Percent Auto 7.8 % (2-11); Neutrophils Absolute Auto 1.5 x10*3/uL (2.0-8.3); Neutrophils Percent Auto 35.7 % (45-73); Platelet Count 217 X10*3/uL (160-400); Potassium 3.7 mmol/L (3.3-5.1); Red Blood Count 6.26 X10*6/uL (4.60-5.80); Red Cell Distribution Width 15.8 % (11.0-16.0); Sodium 139 mmol/L (135-145); White Blood Count 4.2 X10*3/uL (4.8-10.8)
[2025-02-02 18:53] LABS: Creatinine Urine 164.61 mg/dL; Protein/Creatinine Ratio, Ur 0.71 (<0.2); Total Protein Urine Random 117 mg/dL (<12)
[2025-02-03 14:53] LABS: IgA 275 mg/dL (47-310); IgG 1982 mg/dL (600-1640); IgM 59 mg/dL (50-300)
== END 2025-02-02 11:50 | disposition home or self-care (01) ==
LOC: HO.HKASLDS 11:49
PROVIDERS: Visit Provider Internal Medicine Nephrology
DX: N17.9 Acute kidney failure, unspecified (principal); N18.31 Chronic kidney disease, stage 3a; I10 Essential (primary) hypertension
CPT/HCPCS: 80051; 82310; 82565; 82570; 82784; 84156; 84520; 85025; 86334; 86335

== ENCOUNTER 2025-02-11 10:25 | Outpatient (AMB) | payer OTHER, SELFPAY ==
--- NOTE | 2025-02-11 10:22 | HO.NEPHOV_ITS ---
Vital Signs 02/11/25 10:24 Height 6 ft 2 in Weight 32 lb 9 oz BMI 4.2 BP 164/120 H Blood Pressure Location Lt brachial Position Sitting Pulse 87 Pulse Source Pulse Oximeter Pulse Oximetry (%) 97 Oxygen Delivery Method Room Air Intake Visit Reasons: 1mon follow-up w/labs-Conf Aeronautical Inspector Required: No Accompanied by: Self / Same As Patient Allergies No Known Allergies Allergy (Verified 02/11/25 10:24) HPI Comments Details: I had the pleasure of seeing Sangeeta in follow up for chronic kidney disease and hypertension. Last week he had an increased focal motor activity on RUE mimicking a focal seizure activity. He recently had a hospitalization due to acute on chronic systolic heart failure , hypertensive emergency, pulmonary edema as well as acute kidney injury. His serum creatinine was 2.78 during his recent hospitalization which had improved to 1.6 at discharge. He is trying to be compliant with the diet and medications. He denies chest pain, shortness of breath, paroxysmal nocturnal dyspnea, urinary symptoms or orthostasis. He denies taking nonsteroidal anti-inflammatories on a regular basis. He does not have any epistaxis, hemoptysis, hematemesis, melena, joint swellings. He denies having any proteinuria. He is concerned about his systolic heart failure as well as CKD. [facility] Medical History (Updated 01/25/25 @ 20:42 by Jamin Montague MD) Pre-diabetes Hypertriglyceridemia MARANDA (obstructive sleep apnea) Morbid obesity Surgical History History of ankle surgery Family History Mother Thyroid disease Maternal Grandmother Diabetes Hypertension Kidney disease Social History Alcohol intake: never Patient Tobacco Use Status: Former Tobacco user Substance Use Type: Marijuana Results Reviewed Nephrology Results: Hgb 15.3 g/dl (14.0-18.0) 02/02/25 WBC 4.2 X10*3/uL (4.8-10.8) L 02/02/25 Plt Count 217 X10*3/uL (160-400) 02/02/25 Sodium 139 mmol/L (135-145) 02/02/25 Potassium 3.7 mmol/L (3.3-5.1) 02/02/25 Chloride 106 mmol/L (96-108) 02/02/25 Carbon Dioxide 25 mmol/L (22-29) 02/02/25 BUN 32 mg/dL (9-16) H 02/02/25 Creatinine 2.26 mg/dL (0.5-1.4) H 02/02/25 Calcium 9.0 mg/dL (8.4-10.2) 02/02/25 Urine Creatinine 164.61 mg/dL 02/02/25 Protein/Creatinin Ratio 0.71 (<0.2) H 02/02/25 Assessment & Plan Assessment & Plan (1) CKD stage 3a, GFR 45-59 ml/min: Code(s): N18.31 - Chronic kidney disease, stage 3a Category: Medical (2) Hypertension: Code(s): I10 - Essential (primary) hypertension Category: Medical Qualifiers: Hypertension type: primary hypertension Qualified Code(s): I10 - Essential (primary) hypertension Plan Chad has baseline CKD stage 3 from hypertensive nephropathy. He has history of systolic heart failure. His recent ejection fraction was 35%. He recently had NORY on CKD due to cardiorenal syndrome. At that time he was in hypertensive emergency, pulmonary edema and NORY. He has proteinuria. He needs to lose weight, keep up with a low-sodium diet, be compliant with his medications as well as CPAP. We need to rule out any infiltrative myocardial disease given systolic dysfunction as well as CKD. I started him on carvedilol 6.25 mg bid and increased his spironolcatone 50 mg daily.He is going to be seen by PCP today if possible. He will be a great candidate for GLP agonist. All these have been explained in detail. Follow-up lab work has been ordered and answered all questions Orders: Orders Blood Urea Nitrogen 3 Weeks I10 - Essential (primary) hypertension, N18.31 - Chronic kidney disease, stage 3a Creatinine 3 Weeks I10 - Essential (primary) hypertension, N18.31 - Chronic kidney disease, stage 3a Electrolytes 3 Weeks I10 - Essential (primary) hypertension, N18.31 - Chronic kidney disease, stage 3a Medications: New carvedilol 6.25 mg PO BID 60 tabs 4RF Coding Level of Care Code Est Pt Level 4 (06224) Diagnoses CKD stage 3a, GFR 45-59 ml/min N18.31 Primary hypertension I10 Hypertension type: primary hypertension
[2025-02-11 10:24] VITALS: BP 164/120; PULSE 87; O2SAT 97
--- OUTSIDE RECORDS SUMMARY | 2025-02-11 11:51 | XMS_ITS | Encounter Summary ---
Author Organization [facility] Address [address] [place] [address] Care Team Providers Care Steel Barrel Reamer Name Role Phone Jeff Vale MD Primary Care Provider [phone] Reason for Visit * Reason Onset Date Comments Seizures 02/11/2025 Encounter Details Date Type Department Care Team (Late st Contact Info) Description 02/11/2025 Telephone Internal Medicine - [place] [address] [place] [phone] Karma Salomon, TISH Seizures Social History Tobacco Use Types Packs/Day Years [...] as of this encounter Progress Notes * Karma Salomon RN - 02/11/2025 10:[address] Vale, he spoke w/ kidney doctor, pt had a seizure 2 days ago which the kidney doctor discovered today during an appt w/ the pt, needs to have an appt with PCP. Ok to double book, prefers today Call to pt # [phone], spoke w/ him. He is at the building now. I booked him for today 11:30am, Dr. Vale documented in this encounter Plan of Treatment Upcoming Encounters Date Type Department Care Team (Late st Contact Info) Description 03/24/2025 3:00 PM EDT Appointment [facility] Endoscopy [address] [place] [phone] Jeet Galaviz DO 175 [facility] [address] [place] [address] 06/07/2025 10:00 AM EDT Ancillary Procedure [facility] Cardiology [facility] [address] [facility] [address] [place] [address] 07/21/2025 10:10 AM EDT Office Visit [facility] [address] [place] [address] [address] [place] [address] Deep Albrecht NP [address] [place] [address] [address] [place] [address] documented as of this encounter Visit Diagnoses Not on filedocumented in this encounter Care Teams Steel Barrel Reamer Relationship Specialty Start Date End Date Jeff Vale MD [address] [facility] [address] [place] [address] PCP - General Internal Medicine 12/02/24 documented as of this encounter
--- OUTSIDE RECORDS SUMMARY | 2025-02-11 11:51 | XMS_ITS | Clinical Summary ---
Author Organization [facility] [address] [facility] Address [address] [facility] [place] [address] Phone Care Team Providers Care Make Up Arranger Name Role Phone Jeff Vale MD Primary Care Provider [phone] Allergies Active Allergy Reactions Criticality Noted Date [...] Diagnosed Date Stage 3 chronic kidney disease ([facility] V24, [facility] V28) 01/05/2025 Assessment & Plan (01/05/2025 1:00 PM EDT): He is followed by Dr. Jennings of the nephrology service. Recent blood tests were completed at [facility]. A note will be sent to his staff pharmacist hospital regarding his condition. He sees Dr. Montague later this week. Consideration should be given to starting Entresto with close monitoring of renal parameters. Acute systolic CHF (congesti ve heart failure) ([facility] V24, [facility] V28) 12/31/2024 Assessment & Plan (01/05/2025 1:00 [...] A note will be sent to his staff pharmacist hospital and primary care physician regarding his condition. Orders: Transthoracic echocardiogram (TTE) complete with PRN contrast, bubble, strain, and 3D order panel; Future Morbid obesity ([facility] V24, [facility] V28) 2024 Assessment & Plan (01/05/2025 1:00 PM EDT): MARANDA (obstructive sleep apnea) 12/03/2024 Assessment & Plan (01/05/2025 1:00 PM EDT): He was informed that replacement parts for his CPAP machine can be purchased on [place]. He was advised to contact [facility] for further assistance with his CPAP machine. Hypertriglyceridemia 12/03/2024 Pre-diabetes 12/03/2024 Assessment & Plan (01/05/2025 1:00 PM EDT): Encounters Date Type Department Care Team Description 02/11/2025 Telephone Internal Medicine [facility] 175 [facility] [address] [place] [address] Karma Salomon RN Seizures 01/06/2025 Telephone Internal Medicine [facility] 175 [facility] [address] [place] [address] Jeff Vale MD Joseph: Fax Sleep study 01/05/2025 10:20 AM EDT Office Visit [facility] [address] [place] [phone] Troy Pederson MD Morbid obesity ([facility] V24, [facility] V28) (Primary Dx); Acute systolic CHF (congestive heart failure) ([facility] V24, [facility] V28); MARANDA (obstructive sleep apnea); Pre-diabetes; Acute systolic congestive heart failure ([facility] V24, [facility] V28); Hospital discharge follow-up; Stage 3 chronic kidney disease, unspecified whether stage 3a or 3b CKD ([facility] V24, [facility] V28) 12/30/2024 9:15 AM EDT Office Visit Internal Medicine [address] [place] [address] Jeff Vale MD Adult general medical examination (Primary Dx); Acute systolic congestive heart failure ([facility] V24, [facility] V28); Primary hypertension; Screening for colon cancer; NORY (acute kidney injury) ([facility] V24) 12/29/2024 Telephone Internal Medicine [facility] 175 [facility] [address] [place] [address] Jeff Vale MD 12/23/2024 1:30 PM EDT Office Visit Internal Medicine [address] [place] [address] Jeff Vale MD Acute systolic congestive heart failure ([facility] V24, [facility] V28) (Primary Dx); MARANDA (obstructive sleep apnea); Morbid obesity ([facility] V24, [facility] V28); NORY (acute kidney injury) ([facility] V24); Hospital discharge follow-up 12/16/2024 Telephone Internal Medicine - [place] 175 [facility] [address] [place] [address] Jeff Vale MD Hospital Follow-up 12/09/2024 11:15 AM EST Office Visit [facility] [address] [place] [address] Christie Rahman NP Strep pharyngitis (Primary Dx); Upper respiratory tract infection, unspecified type from Last 3 Months Immunizations Name Administration Dates Next Due Tdap Tetanus diptheria acell ular pertussis (Boostrix; Adacel) 7yo and older 06/02/2014 Surgical History Surgery Date Site/Laterality Comments OTHER SURGICAL HISTORY 1994 PROCEDURE: ---- OTHER ----; COMMENT: Right tib/fib Medical History Medical History Date Comments Morbid obesity ([facility] V24, [facility] V28) 04/28/2014 DX:Morbid obesity (HCC) MARANDA (obstructive sleep apnea) 05/11/2014 DX :MARANDA (obstructive sleep apnea); COMMENT: Sleep study - 05/08/14 - severe degree of sleep apnea, relieved with the use of nasal CPAP; CPAP 12 cm H2O recommended Chronic kidney disease, stag e 3 ([facility] V24, [facility] V28) Sepsis ([facility] V24, [facility] V28) secondary to acute bilateral tonsillitis Dysphagia Acute hypoxic respiratory fa ilure ([facility] V24, [facility] V28) Family History Medical History Relation Name [...] Info) Description 03/24/2025 3:00 PM EDT Appointment [facility] Endoscopy [address] [place] [phone] Jeet Galaviz, DO [address] [facility] [address] [place] [address] 06/07/2025 10:00 AM EDT Ancillary Procedure [facility] Cardiology [facility] [address] [place] [address] 07/21/2025 10:10 AM EDT Office Visit [facility] Cardiology [facility] [address] [place] [address] Deep Albrecht NP [address] [place] [address] [address] [place] [address] Health Maintenance Due Date Last Done Comments [...] Routine 12/10/2024 10:11 AM EST POC RAPID [id number], MOLECULAR Routine 12/09/2024 1:10 PM EST Upper [...] EST) Anatomical Region Laterality Modality Ultrasound Result [facility] Historical Provider CV ECHO PROCEDURES Final Result * (ABNORMAL) Poc Rapid [id number], MOLECULAR (12/09/2024 1:10 PM EST) [facility] COVID-19/SARS- COV-2 Rapid POC Negative Negative Swab Nasopharyngeal structure / Unknown 12/09/2024 1:10 PM EST Result [facility] Christie Rahman NP POINT OF CARE TEST ENTER/EDIT ORDERABLES Edited Result - Final * (ABNORMAL) POC rapid strep A manually resulted (12/09/2024 1:09 PM EST) [facility] Rapid Strep A Screen POC Positive(A ) Negative Swab Structure of anterior portion of neck / Unknown 12/09/2024 1:09 PM EST Result [facility] Christie Rahman STORE TEAM MEMBER POINT OF CARE TEST ENTER/EDIT ORDERABLES Final Result * (ABNORMAL) Lipid panel (04/17/2016) [facility] LDL/HDL Ratio 5(A) 0 - 4 Triglycerides 112 0 - 150 mg/dL Cholesterol 200 0 - 200 mg/dL HDL 39(A) >=40 mg/dL LDL Cholesterol 139(A) 0 - 100 mg/dL Blood Venous blood specimen / Unknown Result [facility] Historical Provider LAB BLOOD ORDERABLES Elisabet l Result * HIV Screening (06/02/2014) [facility] HIV Screening Abstracted Historical Provider HEALTH MAINTENANCE Final Result * Hepatitis C Screening (06/02/2014) [facility] Hepatitis C Screening Abstracted Historical Provider HEALTH MAINTENANCE Final Result * Annual BMP Blood Test (04/28/2014) [facility] Annual BMP Blood Test Abstracted us Historical Provider HEALTH MAINTENANCE Final Result from Last 3 Months or Most Recently Relevant to Health Maintenance Insurance [facility] [employer] Care Teams Make Up Arranger Relationship Specialty Start Date End Date Jeff Vale MD 175 [facility] [address] [place] [address] PCP - General Internal Medicine 12/02/24
--- OUTSIDE RECORDS SUMMARY | 2025-02-11 11:51 | XMS_ITS | Clinical Summary ---
Author Organization [facility] Address [address] [address] Phone Care Team Providers Care Career And Technology Education Teacher Name Role Phone Jose Etienne Reid [...] 2.35 mg/dL Glucose 74 mg/dL eGFR Non-Afr Icelandic 34 12/21/2024 us Historical Provider LAB BLOOD ORDERABLES Elisabet l Result from Last 3 Months Insurance [facility] Medicaid Care Teams Career And Technology Education Teacher Relationship Specialty Start Date End Date Etienne Wharton DO 75 [facility] [address] [place] [address] PCP - General Internal Medicine 03/01/21
== END 2025-02-11 11:09 | disposition home or self-care (01) ==
LOC: HO.HKAS 10:25
PROVIDERS: PCP Internal Medicine; Visit Provider Internal Medicine Nephrology
DX: N18.31 Chronic kidney disease, stage 3a (principal); I10 Essential (primary) hypertension
CPT/HCPCS: 99214

== ENCOUNTER → 2025-02-11 10:25 | Outpatient (BNVA) | payer OTHER, SELFPAY | PROVIDERS: PCP Internal Medicine; Visit Provider Internal Medicine Nephrology | DX: I12.9 Hypertensive chronic kidney disease with stage 1 through stage 4 chronic kidney disease, or unspecified chronic kidney disease (principal); N18.31 Chronic kidney disease, stage 3a | CPT/HCPCS: 99212 ==

== ENCOUNTER 2025-03-02 10:19 | Outpatient (REF) | payer OTHER, SELFPAY ==
--- OUTSIDE RECORDS SUMMARY | 2025-03-02 11:32 | XMS_ITS | Clinical Summary ---
Author Organization [facility] Address [address] [address] Phone Care Team Providers Care Director Of Preclinical Research Name Role Phone Jose Etienne Reid DO [...] 2.35 mg/dL Glucose 74 mg/dL eGFR Non-Afr Chinese 34 12/21/2024 us Historical Provider LAB BLOOD ORDERABLES Elisabet l Result from Last 3 Months Insurance [facility] Medicaid Care Teams Director Of Preclinical Research Relationship Specialty Start Date End Date Etienne Wharton DO [address] [facility] [address] [place] [address] PCP - General Internal Medicine 03/01/21
--- OUTSIDE RECORDS SUMMARY | 2025-03-02 11:32 | XMS_ITS | Clinical Summary ---
Author Organization [facility] [address] [facility] Building Address [address] [place] [address] Phone Care Team Providers Care [employer]astex Thread Winder Name Role Phone Jeff Vale MD Primary Care Provider [phone] Allergies Active Allergy Reactions Criticality Noted Date [...] Active spironolactone (ALDACTONE) 25 mg tablet Take 2 tablets (50 mg total) by mouth 1 (one) time each day. Active labetaloL (NORMODYNE) 200 mg tablet Take 1 tablet (200 mg total) by mouth 2 (two) times a day. 60 each 3 12/23/2024 12/24/19 26 Active losartan (Cozaar) 50 mg tablet Take 1 tablet (50 mg total) by mouth 1 (one) time each day. 30 each 11 12/30/2024 12/31/19 26 Active hydrALAZINE (APRESOLINE) 25 mg tablet Take 1 tablet (25 mg total) by mouth 3 (three) times a day. Active Active Problems Problem Noted Date Diagnosed Date Stage 3 chronic kidney disease ([facility] V24, [facility] V28) 01/05/2025 Assessment & Plan (01/05/2025 1:00 PM EDT): He is followed by Dr. Jennings of the nephrology service. Recent blood tests were completed at [facility]. A note will be sent to his [employer] consultant regarding his condition. He sees Dr. Montague later this week. Consideration should be given to starting Entresto with close monitoring of renal parameters. Acute systolic CHF (congesti ve heart failure) ([facility] V24, [facility] [place] 12/31/2024 Assessment & [...] A note will be sent to his [employer] consultant and primary care physician regarding his condition. Orders: Transthoracic echocardiogram (TTE) complete with PRN contrast, bubble, strain, and 3D order panel; Future Morbid obesity ([facility] V24, [facility] V28) 2024 Assessment & Plan (01/05/2025 1:00 PM EDT): MARANDA (obstructive sleep apnea) 12/03/2024 Assessment & Plan (01/05/2025 1:00 PM EDT): He was informed that replacement parts for his CPAP machine can be purchased on [employer]. He was advised to contact [facility] for further assistance with his CPAP machine. Hypertriglyceridemia 12/03/2024 Pre-diabetes 12/03/2024 Assessment & Plan (01/05/2025 1:00 PM EDT): Encounters Date Type Department Care Team Description 02/12/2025 11:28 AM EDT - 02/12/2025 11:59 PM EDT Hospital Encounter CT Scan - [address] [phone] Seizure disorder, focal motor ([facility] [place], [facility] V28) Discharge Disposition: Home or Self Care 02/11/2025 11:30 AM EDT Office Visit Internal Medicine [facility] [address] [facility] [address] [place] [address] Jeff Vale MD Seizure disorder, focal motor ([facility] [place], [facility] V28) (Primary Dx); Acute systolic congestive heart failure ([facility] [place], [facility] V28); NORY (acute kidney injury) ([facility] [place]24); Morbid obesity ([facility] [place], [facility] V28) 02/11/2025 Telephone Internal Medicine [facility] [address] [facility] [address] [place] [address] Karma Salomon RN Seizures 01/06/2025 Telephone Internal Medicine [facility] [address] [facility] [address] [place] [address] Jeff Vale MD Joseph: Fax Sleep study 01/05/2025 10:20 AM EDT Office Visit [facility] [address] [place] [phone] Troy Pederson MD Morbid obesity ([facility] [place]24, [facility] V28) (Primary Dx); Acute systolic CHF (congestive heart failure) ([facility] [place], [facility] V28); MARANDA (obstructive sleep apnea); Pre-diabetes; Acute systolic congestive heart failure ([facility] V24, [facility] V28); Hospital discharge follow-up; Stage 3 chronic kidney disease, unspecified whether stage 3a or 3b CKD ([facility] [place], [facility] V28) 12/30/2024 9:15 AM EDT Office Visit Internal Medicine [address] [phone] Jeff Vale MD Adult general medical examination (Primary Dx); Acute systolic congestive heart failure ([facility] [place], [facility] V28); Primary hypertension; Screening for colon cancer; NORY (acute kidney injury) ([facility] [place]) 12/29/2024 Telephone Internal Medicine [address] [phone] Jeff Vale MD 12/23/2024 1:30 PM EDT Office Visit Internal Medicine [address] [phone] Jeff Vale MD Acute systolic congestive heart failure ([facility] [place], [facility] V28) (Primary Dx); MARANDA (obstructive sleep apnea); Morbid obesity ([facility] [place]24, [facility] V28); NORY (acute kidney injury) ([facility] [place]); Hospital discharge follow-up 12/16/2024 Telephone Internal Medicine [address] [phone] Jeff Vale MD Hospital Follow-up 12/09/2024 11:15 AM EST Office Visit [facility] [address] [phone] Christie Rahman NP Strep pharyngitis (Primary Dx); Upper respiratory tract infection, unspecified type from Last 3 Months Immunizations Name Administration Dates Next Due Tdap Tetanus diptheria acell ular pertussis (Boostrix; Adacel) 7yo and older 06/02/2014 Surgical History Surgery Date Site/Laterality Comments OTHER SURGICAL HISTORY 1994 PROCEDURE: ---- OTHER ----; COMMENT: Right tib/fib Medical History Medical History Date Comments Morbid obesity ([facility] [place], [facility] V28) 04/28/2014 DX:Morbid obesity (HCC) MARANDA (obstructive sleep apnea) 05/11/2014 DX :MARANDA (obstructive sleep apnea); COMMENT: Sleep study - 05/08/14 - severe degree of sleep apnea, relieved with the use of nasal CPAP; CPAP 12 cm H2O recommended Chronic kidney disease, stag e 3 ([facility] [place]24, [facility] V28) Sepsis ([facility] [place], [facility] V28) secondary to acute bilateral tonsillitis Dysphagia Acute hypoxic respiratory fa ilure ([facility] [place], [facility] V28) Family History Medical History [...] Sign Reading Time Taken Comments Blood Pressure 167/121 02/11/2025 12:01 PM EDT Pulse 73 02/11/2025 12:01 PM EDT Temperature 36.4 ??C (97.5 ??F) 02/11/2025 12:01 PM E DT Respiratory Rate - - Oxygen Saturation 98% 02/11/2025 12:01 PM EDT Inhaled Oxygen Concentration - - Weight 146 kg (321 lb) 02/11/2025 12:01 PM EDT Height 188 cm (6' 2 ) 02/11/2025 12:01 PM EDT Body Mass Index 41.21 02/11/2025 12:01 PM EDT Plan of Treatment Upcoming Encounters Date Type Department Care Team (Late st Contact Info) Description 03/24/2025 3:00 PM EDT Appointment [facility] [address] [place] [address] Jeet Galaviz DO [address] [facility] [address] [place] [address] 06/07/2025 10:00 AM EDT Ancillary Procedure [facility] [address] [facility] [address] [place] [address] 07/21/2025 10:10 AM EDT Office Visit [facility] [address] [place] [phone] Deep Albrecht NP [address] [facility] [address] [place] [address] 08/05/2025 11:00 AM EDT Consult Bariatric Surgery - [place] [address] [place] [phone] Saundra Gonzalez MD [address] [facility] [address] [place] [address] Health Maintenance Due Date Last Done Comments [...] Procedure Name Priority Date/Time Associated Diagnosis Comments CT HEAD WO CONTRAST STAT 02/12/2025 1 1:41 AM EDT Seizure disorder, focal motor (CMS/HCC V24, CMS/HCC V28) EXTERNAL ECHO Routine 12/10/2024 10:11 AM EST POC RAPID [id number], MOLECULAR Routine 12/09/2024 1:10 PM EST Upper respiratory tract infection, unspecified type POC RAPID STREP A Routine 12/09/2024 1:0 9 PM EST Upper respiratory tract infection, unspecified type LIPID PANEL Routine 04/17/2016 HEPATITIS C SCREENING Routine 06/02/2014 HIV SCREENING Routine 06/02/2014 ANNUAL BMP BLOOD TEST Routine 04/28/2014 from Last 3 Months or Most Recently Relevant to Health Maintenance Results * CT Head wo Contrast (02/12/2025 11:41 AM EDT) Anatomical Region Laterality Modality Head and Neck Computed Tomogra phy 02/12/2025 12:1 5 PM EDT Impressions 02/12/2025 12:20 PM EDT Impression: 1. ??Subtle hypodensities within the bilateral frontal lobes. ??This could represent microvascular ischemic changes versus alternate process. ??Consider MRI brain for further evaluation 2. No acute intracranial hemorrhage. -------- FINAL REPORT -------- Dictated By: Raul Tom Dictated Date: 02/12/2025 12:15 ET Assigned Physician: Raul Tom Reviewed and Electronically Signed By: Raul Tom Signed Date: 02/12/2025 12:20 ET Workstation ID: [id number] Transcribed By: Self Edit Transcribed Date: 02/12/2025 12:15 ET Narrative 02/12/2025 12:[address] head Clinical history: seizure-like activity few times Technique: Multiple contiguous axial images were obtained from the skull base to the cranial vertex, without the use of intravenous contrast. ??Images were reformatted into coronal and sagittal planes Comparison:None CT head Findings: There are small hypodensities within the bilateral frontal lobes (series 2, image 35). The ventricles and sulci are within normal limits. No intracranial hemorrhage or extra-axial fluid collection is identified. There is no evidence of focal mass effect or midline shift. Leigh-white matter differentiation is well preserved. The osseous structures are intact. The visualized paranasal sinuses and mastoid air cells are well aerated. Procedure Note Raul Tom MD - 02/12/2025 CT head Clinical history: seizure-like activity few times Technique: Multiple contiguous axial images were obtained from the skullbase to the cranial vertex, without the use of intravenous contrast.Images were reformatted into coronal and sagittal planes Comparison:None CT head Findings: There are small hypodensities within the bilateral frontal lobes (series2, image 35). The ventricles and sulci are within normal limits. Nointracranial hemorrhage or extra-axial fluid collection is identified.There is no evidence of focal mass effect or midline shift. Leigh-whitematter differentiation is well preserved. The osseous structures are intact. The visualized paranasal sinuses andmastoid air cells are well aerated. IMPRESSION: Impression: 1. Subtle hypodensities within the bilateral frontal lobes. This couldrepresent microvascular ischemic changes versus alternate process.Consider MRI brain for further evaluation 2. No acute intracranial hemorrhage. -------- FINAL REPORT -------- Dictated By: Raul Tom Dictated Date: 02/12/2025 12:15 ET Assigned Physician: Raul Tom Reviewed and Electronically Signed By: Raul Tom Signed Date: 02/12/2025 12:20 ET Workstation ID: [id number] Transcribed By: Self Edit Transcribed Date: 02/12/2025 12:15 ET Result [facility] Jeff Vale MD IMG CT PROCEDURES Final Result * External Echo (12/10/2024 10:11 AM EST) Anatomical Region Laterality Modality Ultrasound Result [facility] Historical Provider CV ECHO PROCEDURES Final Result * (ABNORMAL) Poc Rapid [id number], MOLECULAR (12/09/2024 1:10 PM EST) [facility] COVID-19/SARS- COV-2 Rapid POC Negative Negative Swab Nasopharyngeal structure / Unknown 12/09/2024 1:10 PM EST Result [facility] Christie Rahman DELIVERY ARCHITECT POINT OF CARE TEST ENTER/EDIT ORDERABLES Edited Result - Final * (ABNORMAL) POC rapid strep A manually resulted (12/09/2024 1:09 PM EST) [facility] Rapid Strep A Screen POC Positive(A ) Negative Swab Structure of anterior portion of neck / Unknown 12/09/2024 1:09 PM EST Result [facility] Christie Rahman DELIVERY ARCHITECT POINT OF CARE TEST ENTER/EDIT ORDERABLES Final Result * (ABNORMAL) Lipid panel (04/17/2016) [facility] LDL/HDL Ratio 5(A) 0 - 4 Triglycerides 112 0 - 150 mg/dL Cholesterol 200 0 - 200 mg/dL HDL 39(A) >=40 mg/dL LDL Cholesterol 139(A) 0 - 100 mg/dL Blood Venous blood specimen / Unknown Result [facility] Historical Provider LAB BLOOD ORDERABLES Elisabet l Result * HIV Screening (06/02/2014) [facility] HIV Screening Abstracted Result [facility] Provider HEALTH MAINTENANCE Final Result * Hepatitis C Screening (06/02/2014) [facility] Hepatitis C Screening Abstracted Result [facility] Historical Provider HEALTH MAINTENANCE Final Result * Annual BMP Blood Test (04/28/2014) Annual BMP Blood Test Abstracted Historical Provider HEALTH MAINTENANCE Final Result from Last 3 Months or Most Recently Relevant to Health Maintenance Insurance [facility] [employer] Care Teams [employer] Thread Winder Relationship Specialty Start Date End Date Jeff Vale MD [address] [facility] [address] [place] [address] PCP - General Internal Medicine 12/02/24
[2025-03-02 18:32] LABS: Anion Gap 15 (12-20); Blood Urea Nitrogen 27 mg/dL (9-16); Carbon Dioxide 24 mmol/L (22-29); Chloride 103 mmol/L (96-108); Estimated Glomerular Filt Rate 26; Potassium 3.7 mmol/L (3.3-5.1); Sodium 138 mmol/L (135-145)
== END 2025-03-02 10:20 | disposition home or self-care (01) ==
LOC: HO.HKASLDS 10:19
PROVIDERS: Visit Provider Internal Medicine Nephrology
DX: I12.9 Hypertensive chronic kidney disease with stage 1 through stage 4 chronic kidney disease, or unspecified chronic kidney disease (principal); N18.31 Chronic kidney disease, stage 3a
CPT/HCPCS: 36415; 80051; 82565; 84520

== ENCOUNTER → 2025-04-01 13:10 | Outpatient (REF) | payer OTHER, SELFPAY | LOC: HO.SL 13:10 | PROVIDERS: PCP Internal Medicine; Visit Provider Nurse Practitioner Family | DX: R40.0 Somnolence (principal) | CPT/HCPCS: 95806 ==

== ENCOUNTER → 2025-04-01 13:21 | Outpatient (BNV) | payer OTHER, SELFPAY | PROVIDERS: PCP Internal Medicine; Visit Provider Internal Medicine | DX: G47.33 Obstructive sleep apnea (adult) (pediatric) (principal) | CPT/HCPCS: 95806 ==

== ENCOUNTER 2025-04-21 10:50 | Outpatient (AMB) | payer OTHER, SELFPAY ==
[2025-04-21 10:52] VITALS: BP 194/120; PULSE 84; O2SAT 98; BMI 42.2
--- NOTE | 2025-04-21 10:52 | A.OFFVIS_ITS ---
Vital Signs 04/21/25 10:52 Height 6 ft 2 in Weight 328 lb 8 oz BMI 42.2 BP 194/120 H Blood Pressure Location Rt brachial Position Sitting Pulse 84 Pulse Source Pulse Oximeter Pulse Oximetry (%) 98 Oxygen Delivery Method Room Air Intake Visit Reasons: Obstructive sleep apnea Allergies No Known Allergies Allergy (Verified 04/21/25 10:57) HPI HPI Obstructive sleep apnea: Details: Sangeeta is a pleasant 44 year old male, former smoker with less than 5 pack year history, with underlying severe MARANDA, HTN and CHF LVEF 30-35%. He was initially referred by PCP for pulmonary evaluation for MARANDA. His last sleep study was in 2013 which revealed severe MARANDA, AHI 76, and started on CPAP therapy. Unfortunately patient has been without CPAP therapy reportedly due to supply issues, recently admitted for possible cardiorenal failure. He is under the care of cardiology and nephrology. Since the last visit, he did obtain tubing to CPAP however continues to have difficulties with compliance. Today he presents to review sleep study results. [facility] Medical History (Updated 01/25/25 @ 20:42 by Jamin Montague MD) Pre-diabetes Hypertriglyceridemia MARANDA (obstructive sleep apnea) Morbid obesity Surgical History History of ankle surgery Family History Mother Thyroid disease Maternal Grandmother Diabetes Hypertension Kidney disease Social History Alcohol intake: never Patient Tobacco Use Status: Former Tobacco user Substance Use Type: Marijuana Review of Systems Const Denies chills, Denies excessive sweating, Denies fever(s), Denies headache(s) and Denies night sweats Eyes Denies dry eyes, Denies irritation and Denies itchy eyes ENT Reports Normal hearing present, Denies headache(s), Denies nasal congestion, Denies nasal discharge, Denies post nasal drip and Denies sore throat Card Denies chest pain, Denies chest pain at rest, Denies chest pain with activity, Denies claudication, Denies leg edema, Denies dyspnea, Denies dyspnea on exertion, Denies orthopnea and Denies paroxysmal nocturnal dyspnea Resp Denies chest congestion, Denies cough, Denies excessive phlegm production, Denies pain on inspiration, Denies pain with cough, Denies dyspnea, Denies dyspnea on exertion, Denies stridor and Denies wheezing Musc Denies myalgias Neuro Reports Normal hearing present and Denies headache(s) Endo Denies excessive sweating Sampson/Lymph Denies lymphadenopathy Aller/Immun Denies itchy eyes, Denies seasonal rhinorrhea and Denies wheezing Physical Exam Vital Signs: Last Vital Signs Pulse 84 04/21/25 10:52 BP 194/120 H 04/21/25 10:52 Pulse Ox 98 04/21/25 10:52 Oxygen Delivery Method Room Air 04/21/25 10:52 BMI result Body Mass Index 42.2 Const General: cooperative, healthy appearing, comfortable, no acute distress, well developed and alert Nutritional Appearance: obese Orientation/consciousness: patient oriented x3 Limitations: no limitations HEENT Head: Yes normal to inspection, Yes normocephalic and Yes atraumatic Ears: hearing grossly normal bilaterally and external ears normal Eyes General: appearance normal, both eyes and all related structures Eyelids: Yes eyelids normal Sclerae: sclerae normal EOM: EOMs intact bilaterally Neck Neck: Yes normal visual inspection and Yes no lymphadenopathy Lymphatic: no lymphadenopathy noted Chest Chest palpation & inspection: normal inspection of the chest Resp Effort & Inspection: normal respiratory effort, able to speak in complete sente nces, no audible wheezes, no cough, no stridor, not tachypneic, no tripod positioning and no use of accessory muscles Auscultation: clear to auscultation bilaterally Cardio Jugular venous distension: no JVD Rate: regular rate Rhythm: regular rhythm Skin Other: warm, dry General skin exam: no rashes or lesions noted Neuro General: patient oriented x3 Cranial nerves: Yes Normal hearing present Cognition (Neuro): normal cognition Gait exam (Neuro): Normal gait present Extrem General: Yes normal to inspection, Yes capillary refill normal, Yes no clubbing, cyanosis or edema and Yes no pedal edema Psych Appearance: grossly normal and well kempt Speech and movement: Normal speech and movement present and Clear speech present Affect: normal affect Attitude: cooperative Thought process: Normal thought process present Thought content: Normal thought content present Insight: Good insight present (Psych) Judgement: Good judgement present (Psych) Assessment & Plan Assessment & Plan (1) Severe obstructive sleep apnea: Code(s): G47.33 - Obstructive sleep apnea (adult) (pediatric) Category: Medical (2) Daytime somnolence: Code(s): R40.0 - Somnolence Category: Medical Plan Upon arrival to room today patient hypertensive 194/120, asymptomatic. He states having difficulties reaching PCP/pediatric orthodontist for refills on cardiac/renal medi cations. He is unsure which medications he has at home but confirms there are no refills available for any at the pharmacy. Rechecked BP 200/130, and discussed importance of emergent evaluation. Recommended ambulance however patient asymptomatic and preferred to drive to [facility]. Reviewed sleep study results with patient which revealed an AHI of 45.3, supine AHI 71.4 severe obstructive sleep apnea, with an average oxygen saturation of 94%, lowest 77%, <88% for 12 minutes. He is agreeable to attempt to be compliant with CPAP therapy in APAP mode and pressure settings of 6-20 cmH20 with close monitoring for compliance and benefits. Sleep hygiene education reviewed. Unfortunately patient is unaware who his most recent DME company is. Will reach out to [facility] in [place] to obtain prior records so we can obtain access to CPAP machine as well as change pressures. Once established on CPAP therapy, will send for overnight oximetry to ensure resolution of noct urnal hypoxemia with CPAP use. All questions were answered and patient is in agreement of plan. Will follow up in 10-12 weeks or sooner if needed Coding Level of Care Code Est Pt Level 4 (54725) Complex EM visit Add On G2211 Diagnoses Severe obstructive sleep apnea G47.33 Daytime somnolence R40.0
--- OUTSIDE RECORDS SUMMARY | 2025-04-21 11:57 | XMS_ITS | Clinical Summary ---
Author Organization [facility] Address [address] [address] Phone Care Team Providers Care Master Scheduler Name Role Phone Jose Etienne Reid DO [...] of 2 - PCV) 1998 Influenza Vaccine (#1) 2025 Insurance [facility] Medicaid Care Teams Master Scheduler Relationship Specialty Start Date End Date Etienne Wharton DO [address] [facility] [address] [place] [phone] PCP - General Internal Medicine 03/01/21
--- OUTSIDE RECORDS SUMMARY | 2025-04-21 11:57 | XMS_ITS | Clinical Summary ---
Author Organization [facility] [address] [facility] Building Address [address] [place] [address] Phone Care Team Providers Care Registered Nurse Behavioral Health Name Role Phone Jeff Vale MD Primary Care Provider [phone] Allergies Active Allergy Reactions Criticality Noted Date [...] (two) times a day. 60 each 3 5 12/24/19 26 Active Additional Information Patient not taking.Reported on 03/24/2025 losartan (Cozaar) 50 mg tablet Take 1 tablet (50 mg total) by mouth 1 (one) time each day. 30 each 11 5 12/31/19 26 Active Additional Information Patient not taking.Reported on 03/24/2025 hydrALAZINE (APRESOLINE) 25 mg tablet Take 1 tablet (25 mg total) by mouth 3 (three) times a day. Active polyethylene glycol (Golytely) 236-22.74-6.74 -5.86 gram solution Take 4L by mouth once for one dose. May substitue any PEG. Starting at 6PM the night before your procedure drink 1 8oz glasses at your own pace until you complete half of the gallon. Finish 2nd half of the gallon 5 hours before your procedure. 4000 mL 5 Active bisacodyL (DULCOLAX) 5 mg EC tablet Take 2 tablets by mouth right before beginning bowel prep. See instructions provided by the office 2 tablet 5 Active Active Problems Problem Noted Date Diagnosed Date Stage 3 chronic kidney disease ([facility] V24, [facility] V28) 01/05/2025 Assessment & Plan (01/05/2025 1:00 PM EDT): He is followed by Dr. Jennings of the nephrology service. Recent blood tests were completed at [facility]. 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 He sees Dr. Montague later this week. Consideration should be given to starting Entresto with close monitoring of renal parameters. Acute systolic CHF (congesti ve heart failure) ([facility] V24, [facility] V28) 12/31/2024 Assessment & Plan (01/05/2025 1:00 [...] A note will be sent to his cashiers supervisor and primary care physician regarding his condition. Orders: Transthoracic echocardiogram (TTE) complete with PRN contrast, bubble, strain, and 3D order panel; Future Morbid obesity (CMS/HCC V24, CMS/HCC V28) 2024 Assessment & Plan (01/05/2025 1:00 PM EDT): MARANDA (obstructive sleep apnea) 12/03/2024 Assessment & Plan (01/05/2025 1:00 PM EDT): He was informed that replacement parts for his CPAP machine can be purchased on [employer]. He was advised to contact [facility] for further assistance with his CPAP machine. Hypertriglyceridemia 12/03/2024 Pre-diabetes 12/03/2024 Assessment & Plan (01/05/2025 1:00 PM EDT): Encounters Date Type Department Care Team Description 03/24/2025 3:02 PM EDT Anesthesia Event [facility] Endoscopy [address] [place] [phone] Troy Royal MD 03/24/2025 2:04 PM EDT - 03/24/2025 11:59 PM EDT Hospital Encounter [facility] Endoscopy [address] [place] [phone] Bal Galaviz DO Pierce, Trudy A, CRNA Dasilva, John E, MD Colon cancer screening Discharge Disposition: Home or Self Care 02/12/2025 11:28 AM EDT - 02/12/2025 11:59 PM EDT Hospital Encounter CT Scan - [address] [phone] Seizure disorder, focal motor (CMS/HCC V24, CMS/HCC V28) Discharge Disposition: Home or Self Care 02/11/2025 11:30 AM EDT Office Visit Internal Medicine - [place] [address] [facility] [address] [place] [phone] Jeff Vale MD Seizure disorder, focal motor (CMS/HCC V24, CMS/HCC V28) (Primary Dx); Acute systolic congestive heart failure (CMS/HCC V24, [facility] V28); NORY (acute kidney injury) ([facility] V24); Morbid obesity ([facility] V24, [facility] V28) 02/11/2025 Telephone Internal Medicine - [address] [place] [address] Karma Salomon RN Seizures from Last 3 Months Immunizations Name Administration Dates Next Due Tdap Tetanus diptheria acell ular pertussis (Boostrix; Adacel) 7yo and older 06/02/2014 Surgical History Surgery Date Site/Laterality Comments OTHER SURGICAL HISTORY 1994 PROCEDURE: ---- OTHER ----; COMMENT: Right tib/fib Medical History Medical History Date Comments Morbid obesity ([facility] V24, [facility] V28) 04/28/2014 DX:Morbid obesity ([facility]) MARANDA (obstructive sleep apnea) 05/11/2014 DX :MARANDA (obstructive sleep apnea); COMMENT: Sleep study - 05/08/14 - severe degree of sleep apnea, relieved with the use of nasal CPAP; CPAP 12 cm H2O recommended Chronic kidney disease, stag e 3 ([facility] V24, [facility] V28) Sepsis ([facility] V24, [facility] V28) secondary to acute bilateral tonsillitis Dysphagia Acute hypoxic respiratory fa ilure ([facility] V24, [facility] V28) Hypertension Family History Medical History Relation Name Comments [...] = 0.6 oz pur e alcohol) Rarely Interpersonal Safety Answer Date Record ed Physical Abuse 03/24/2025 Verbal Abuse 03/24/2025 Sex and Gender Information Value Date Recorded Sex Assigned at Not on file Legal Sex Male 5:39 PM EST Gender Identity Not on file Sexual Orientation Not on file Obstetrics History Last Filed Vital Signs Vital Sign Reading Time Taken Comments Blood Pressure 165/102 03/24/2025 3:48 PM EDT Pulse 66 03/24/2025 3:48 PM EDT Temperature 36.7 C (98 F) 03/24/2025 3:28 PM EDT Respiratory Rate 16 03/24/2025 3:48 PM EDT Oxygen Saturation 98% 03/24/2025 3:48 PM EDT Inhaled Oxygen Concentration - - Weight 145 kg (320 lb) 03/24/2025 2:42 PM EDT Height 188 cm (6' 2 ) 03/24/2025 2:42 PM EDT Body Mass Index 41.09 03/24/2025 2:42 PM EDT Plan of Treatment Upcoming Encounters Date Type Department Care Team (Late st Contact Info) Description 06/07/2025 10:00 AM EDT Ancillary Procedure [facility] Cardiology [facility] [address] [place] [address] 07/21/2025 10:10 AM EDT Office Visit [facility] [address] [place] [address] [address] [place] [address] Deep Albrecht NP [address] [place] [address] [address] [place] [address] 08/05/2025 11:00 AM EDT Consult Bariatric Surgery - [place] [address] [facility] [address] [place] [phone] Saundra Gonzalez MD [address] [facility] [address] [place] [address] Health Maintenance Due Date Last Done Comments COVID-19 Vaccine (#1) 1984 Hepatitis B Vaccines (1 of 3 - 19+ 3-dose series) 1998 DTaP,Tdap,and Td Vaccines (2 - Td or Tdap) 06/02/2024 06/02/2014 Cholesterol Screening (Lipid Panel) 12/02/2024 04/17/2016 Depression Screening 12/02/2024 Social Influencers of Health Screening 12/02/2024 Hypertension/CHF/CAD Annual BMP Blood Test 12/10/2024 04/28/2014 Influenza Vaccine (#1) 2025 Colorectal Cancer Screening: Colonoscopy 03/24/2035 03/24/2025 HIV Screening Completed 06/02/2014 Hepatitis C Screening [...] and At-Risk Patients (6 to 49 Years) Aged Out No longer eligi ble based on patient's age to complete this topic RSV Immunization Patients Un elena 20 months Aged Out No longer eligible b ased on patient's age to complete this topic Varicella Vaccines Aged Out No longer eligible based on patient's age to complete this topic Procedures Procedure Name Priority Date/Time Associated Diagnosis Comments COLONOSCOPY Routine 03/24/2025 3:27 PM EDT Colon cancer screening TISSUE EXAM Routine 03/24/2025 3:19 PM EDT Colon cancer screening CT HEAD WO CONTRAST STAT 02/12/2025 1 1:41 AM EDT Seizure disorder, focal motor (CMS/HCC V24, CMS/HCC V28) LIPID PANEL Routine 04/17/2016 HEPATITIS C SCREENING Routine 06/02/2014 HIV SCREENING Routine 06/02/2014 ANNUAL BMP BLOOD TEST Routine 04/28/2014 from Last 3 Months or Most Recently Relevant to Health Maintenance Results * COLONOSCOPY Anesthesia - MAC; SP ENDOSCOPY (03/24/2025 3:27 PM EDT) Anatomical Region Laterality Modality Endoscopy 03/24/2025 3:05 PM EDT Impressions 03/24/2025 3:27 PM EDT - Hemorrhoids found on perianal exam. - One 6 mm polyp in the descending colon, removed with a cold snare. Resected and retrieved. - One 6 mm polyp in the transverse colon, removed with a cold snare. Resected and retrieved. - The examination was otherwise normal on direct and retroflexion views. Recommendation: - - Discharge patient to home. - High fiber diet. - Continue present medications. - Await pathology results. - Repeat colonoscopy for surveillance based on pathology results. Narrative 03/24/2025 3:27 PM EDT [facility] GI Patient Name: Zackary Lopez Procedure Date: 03/24/2025 3:05 PM Date of : 1980 Age: 44 Gender: Male Note Status: Finalized Attending MD: Bal Galaviz DO, [id number] Procedure Date No Time: 03/24/2025 Procedure: Colonoscopy Indications: Screening for colorectal malignant neoplasm Providers: Bal Galaviz DO Referring MD: Jeff Vale MD Medicines: Monitored Anesthesia Care Complications: No immediate complications. Estimated blood loss: Minimal. Estimated Blood Loss: Estimated blood loss was minimal. Procedure: Pre-Anesthesia Assessment: - - Prior to the procedure, a History and Physical was performed, and patient medications and allergies were reviewed. The patient is competent. The risks and benefits of the procedure and the sedation options and risks were discussed with the patient. All questions were answered and informed consent was obtained. Patient identification and proposed procedure were verified by the physician, the nurse, the anesthesiologist, the rehabilitation engineer and the sow farm barn technician in the pre-procedure area in the endoscopy suite. Mental Status Examination: alert and oriented. Airway Examination: normal oropharyngeal airway and neck mobility. Respiratory Examination: clear to auscultation. CV Examination: normal. Prophylactic Antibiotics: The patient does not require prophylactic antibiotics. Prior Anticoagulants: The patient has taken no anticoagulant or antiplatelet agents. ASA Grade Assessment: II - A patient with severe systemic disease. After reviewing the risks and benefits, the patient was deemed in satisfactory condition to undergo the procedure. The anesthesia plan was to use monitored anesthesia care (MAC). Immediately prior to administration of medications, the patient was re-assessed for adequacy to receive sedatives. The heart rate, respiratory rate, oxygen saturations, blood pressure, adequacy of pulmonary ventilation, and response to care were monitored throughout the procedure. The physical status of the patient was re-assessed after the procedure. After I obtained informed consent, the scope was passed under direct vision. Throughout the procedure, the patient's blood pressure, pulse, and oxygen saturations were monitored continuously. The Olympus Pediatric Colonoscope was introduced through the anus and advanced to the cecum, identified by appendiceal orifice and ileocecal valve. The colonoscopy was performed without difficulty. The patient tolerated the procedure well. The quality of the bowel preparation was good. Findings: Hemorrhoids were found on perianal exam. A 6 mm polyp was found in the descending colon. The polyp was sessile. The polyp was removed with a cold snare. Resection and retrieval were complete. Verification of patient identification for the specimen was done. Estimated blood loss was minimal. A 6 mm polyp was found in the transverse colon. The polyp was sessile. The polyp was removed with a cold snare. Resection and retrieval were complete. Verification of patient identification for the specimen was done. Estimated blood loss was minimal. The exam was otherwise without abnormality on direct and retroflexion views. Procedure Code(s): --- Professional --- 24523, Colonoscopy, flexible; with removal of tumor(s), polyp(s), or other lesion(s) by snare technique Diagnosis Code(s): --- Professional --- Z12.11, Encounter for screening for malignant neoplasm of colon K64.9, Unspecified hemorrhoids D12.4, Benign neoplasm of descending colon D12.3, Benign neoplasm of transverse colon (hepatic flexure or splenic flexure) CPT copyright 2020 [employer]. All rights reserved. The codes documented in this report are preliminary and upon physician coder review may be revised to meet current compliance requirements. BAL Galaviz DO 03/24/2025 3:27:19 PM This report has been signed electronically.Bal Galaviz DO Number of Addenda: 0 Note Initiated On: 03/24/2025 3:05 PM Scope Withdrawal Time: 0 hours 12 minutes 41 seconds Scope In: 3:10:36 PM Scope Out: 3:24:50 PM Endoscopy Department at [facility] - [address] [place] [phone] Procedure Note Bal Galaviz DO - 03/24/2025 [facility] GI Patient Name: Zackary Lopez Procedure Date: 03/24/2025 3:05 PM Date of : 1980 Age: 44 Gender: Male Note Status: Finalized Attending MD: Bal Galaviz DO, [id number] Procedure Date No Time: 03/24/2025 Procedure: Colonoscopy Indications: Screening for colorectal malignant neoplasm Providers: Bal Galaviz DO Referring MD: Jeff Vale MD Medicines: Monitored Anesthesia Care Complications: No immediate complications. Estimated blood loss: Minimal. Estimated Blood Loss: Estimated blood loss was minimal. Procedure: Pre-Anesthesia Assessment: - - Prior to the procedure, a History and Physicalwas performed, and patient medications and allergieswere reviewed. The patient is competent. The risks and benefits of the procedure and the sedation optionsand risks were discussed with the patient. Allquestions were answered and informed consent was obtained. Patient identification and proposed procedure were verified by the physician, the nurse, the anesthesiologist, the rehabilitation engineer and thetechnician in the pre-procedure area in the endoscopy suite. Mental Status Examination: alert and oriented.Airway Examination: normal oropharyngeal airway and neck mobility. Respiratory Examination: clear to auscultation. CV Examination: normal. Prophylactic Antibiotics: The patient does not requireprophylactic antibiotics. Prior Anticoagulants: The patient has taken no anticoagulant or antiplatelet agents. ASA Grade Assessment: II - A patient with severesystemic disease. After reviewing the risks and benefits,the patient was deemed in satisfactory condition to undergo the procedure. The anesthesia plan was touse monitored anesthesia care (MAC). Immediately priorto administration of medications, the patient was re-assessed for adequacy to receive sedatives. The heart rate, respiratory rate, oxygen saturations, blood pressure, adequacy of pulmonary ventilation,and response to care were monitored throughout the procedure. The physical status of the patient was re-assessed after the procedure. After I obtained informed consent, the scope was passed under direct vision. Throughout theprocedure, the patient's blood pressure, pulse, and oxygen saturations were monitored continuously. TheOlympus Pediatric Colonoscope was introduced through theanus and advanced to the cecum, identified byappendiceal orifice and ileocecal valve. The colonoscopy was performed without difficulty. The patient tolerated the procedure well. The quality of the bowel preparation was good. Findings: Hemorrhoids were found on perianal exam. A 6 mm polyp was found in the descending colon. The polyp was sessile. The polyp was removed with acold snare. Resection and retrieval were complete. Verification of patient identification for the specimen was done. Estimated blood loss wasminimal. A 6 mm polyp was found in the transverse colon. The polyp was sessile. The polyp was removed with acold snare. Resection and retrieval were complete. Verification of patient identification for the specimen was done. Estimated blood loss wasminimal. The exam was otherwise without abnormality ondirect and retroflexion views. Procedure Code(s): --- Professional --- 66753, Colonoscopy, flexible; with removal of tumor(s), polyp(s), or other lesion(s) by snare technique Diagnosis Code(s): --- Professional --- Z12.11, Encounter for screening for malignantneoplasm of colon K64.9, Unspecified hemorrhoids D12.4, Benign neoplasm of descending colon D12.3, Benign neoplasm of transverse colon (hepatic flexure or splenic flexure) CPT copyright 2020 [employer]. All rights reserved. The codes documented in this report are preliminary and upon physician coder reviewmay be revised to meet current compliance requirements. BAL Galaviz DO 03/24/2025 3:27:19 PM This report has been signed electronically.Bal Galaviz DO Number of Addenda: 0 Note Initiated On: 03/24/2025 3:05 PM Scope Withdrawal Time: 0 hours 12 minutes 41 seconds Scope In: 3:10:36 PM Scope Out: 3:24:50 PM Endoscopy Department at [facility] - [address] [place] [phone] IMPRESSION: - Hemorrhoids found on perianal exam. - One 6 mm polyp in the descending colon, removedwith a cold snare. Resected and retrieved. - One 6 mm polyp in the transverse colon, removedwith a cold snare. Resected and retrieved. - The examination was otherwise normal on directand retroflexion views. Recommendation: - - Discharge patient to home. - High fiber diet. - Continue present medications. - Await pathology results. - Repeat colonoscopy for surveillance based on pathology results. Bal Galaviz DO GI~PROCEDURE ORDERABLES Final Re sult * Tissue exam (03/24/2025 3:19 PM EDT) Final Diagnosis A. Transverse Colon, polyp: Benign colonic mucosa with focal lymphoid aggregate. No dysplasia or neoplasia identified. Multiple levels evaluated. B. Descending Colon, polyp: Benign colonic mucosa with focal hyperplastic changes. No dysplasia or neoplasia identified. Multiple levels evaluated. 03/29/2025 2:35 PM EDT [facility] Gross Description A. Large Intestine, Transverse Colon, polyp x1: Labeled trans colon polyp x 1 . Received in formalin, is an approximately 1.65 cm in greatest diameter soft to rubbery, holt-brown to red polypoid tissue fragment, inked green at the margin, bisected, and admixed with fecal/food debris. The specimen is wrapped in paper and entirely submitted in toto in one cassette, two pieces, multiple levels. B. Large Intestine, Left/Descending Colon, polyp x1: Labeled desc colon polyp x 1 . Received in formalin, is an approximately 1.3 cm in greatest diameter soft to rubbery, holt-brown to red polypoid tissue fragment, inked green at the margin, bisected, which is wrapped in paper and entirely submitted in toto in one cassette, two pieces, multiple levels. hs/DG 03/29/2025 2:35 PM EDT [facility] Disclaimer Unless otherwise specified, all tissue is 10% NB formalin fixed and paraffin embedded. 03/29/2025 2:35 PM EDT [facility] Tissue Transverse colon structure / Unknown 03/24/2025 3:19 PM EDT 03/24/2025 4:12 PM EDT Tissue specimen (specimen) Descending colon structure / Unknown 03/24/2025 3:21 PM EDT 03/24/2025 4:12 PM EDT Bal Galaviz DO LAB PATHOLOGY ORDERABLES Final R esult [facility] [address] [place] [address], * CT Head wo Contrast (02/12/2025 11:41 AM EDT) Anatomical Region Laterality Modality Head and Neck Computed Tomogra phy 02/12/2025 12:1 5 PM EDT Impressions 02/12/2025 12:20 PM EDT Impression: 1. Subtle hypodensities within the bilateral frontal lobes. This could represent microvascular ischemic changes versus alternate process. Consider MRI brain for further evaluation 2. No acute intracranial hemorrhage. -------- FINAL REPORT -------- Dictated By: Raul Tom Dictated Date: 02/12/2025 12:15 ET Assigned Physician: Raul Tom Reviewed and Electronically Signed By: Raul Tom Signed Date: 02/12/2025 12:20 ET Workstation ID: [id number] Transcribed By: Self Edit Transcribed Date: 02/12/2025 12:15 ET Narrative 02/12/2025 12:[address] head Clinical history: seizure-like activity few times Technique: Multiple contiguous axial images were obtained from the skull base to the cranial vertex, without the use of intravenous contrast. Images were reformatted into coronal and sagittal planes [...] Signed Date: 02/12/2025 12:20 ET Workstation ID: [id number] Transcribed By: Self Edit Transcribed Date: 02/12/2025 12:15 ET Result [facility] Jeff Vale MD IMG CT PROCEDURES Final Result * (ABNORMAL) Lipid panel (04/17/2016) [facility] LDL/HDL Ratio 5(A) 0 - 4 Triglycerides 112 0 - 150 mg/dL Cholesterol 200 0 - 200 mg/dL HDL 39(A) >=40 mg/dL LDL Cholesterol 139(A) 0 - 100 mg/dL Blood Venous blood specimen / Unknown Result [facility] BLOOD ORDERABLES Elisabet l Result * HIV Screening (06/02/2014) [facility] HIV Screening Abstracted Result [facility] Final Result * Hepatitis C Screening (06/02/2014) [facility] Hepatitis C Screening Abstracted Result [facility] Final Result * Annual BMP Blood Test (04/28/2014) [facility] Annual BMP Blood Test Abstracted Result [facility] Final Result from Last 3 Months or Most Recently Relevant to Health Maintenance Insurance [facility] Care Teams Registered Nurse Behavioral Health Relationship Specialty Start Date End Date Jeff Vale MD [address] [facility] [address] [place] [address] PCP - General Internal Medicine 12/02/24
== END 2025-04-21 11:33 | disposition home or self-care (01) ==
LOC: HO.HPSW 10:51
PROVIDERS: PCP Internal Medicine; Visit Provider Nurse Practitioner Family
DX: G47.33 Obstructive sleep apnea (adult) (pediatric) (principal); R40.0 Somnolence
CPT/HCPCS: 99214; G2211

== ENCOUNTER → 2025-04-21 10:50 | Outpatient (BNVA) | payer OTHER, SELFPAY | PROVIDERS: PCP Internal Medicine; Visit Provider Nurse Practitioner Family | DX: G47.33 Obstructive sleep apnea (adult) (pediatric) (principal); R40.0 Somnolence; I10 Essential (primary) hypertension; I50.30 Unspecified diastolic (congestive) heart failure | CPT/HCPCS: 99212 ==

== ENCOUNTER 2025-04-22 14:01 | Outpatient (AMB) | payer OTHER, SELFPAY ==
--- OUTSIDE RECORDS SUMMARY | 2025-04-22 14:10 | XMS_ITS | Clinical Summary ---
Author Organization [facility] [address] [facility] Building Address [address] [place] [address] Phone Care Team Providers Care Editor Dictionary Name Role Phone Jeff Vale MD Primary Care Provider [phone] Allergies Active Allergy Reactions Criticality Noted Date [...] Diagnosed Date Stage 3 chronic kidney disease ([facility] V24, [facility] V28) 01/05/2025 Assessment & Plan (01/05/2025 1:00 PM EDT): He is followed by Dr. Jennings of the nephrology service. Recent blood tests were completed at [facility]. A note will be sent to his presser and blocker knitted goods regarding his condition. He sees Dr. Montague later this week. Consideration should be given to starting Entresto with close monitoring of renal parameters. Acute systolic CHF (congesti ve heart failure) ([facility] V24, [facility] V28) 12/31/2024 Assessment & Plan (01/05/2025 1:00 [...] A note will be sent to his presser and blocker knitted goods and primary care physician regarding his condition. Orders: Transthoracic echocardiogram (TTE) complete with PRN contrast, bubble, strain, and 3D order panel; Future Morbid obesity (CMS/HCC V24, CMS/HCC V28) 2024 Assessment & Plan (01/05/2025 1:00 PM EDT): MARANDA (obstructive sleep apnea) 12/03/2024 Assessment & Plan (01/05/2025 1:00 PM EDT): He was informed that replacement parts for his CPAP machine can be purchased on [employer]. He was advised to contact [facility] for further assistance with his CPAP machine. Hypertriglyceridemia 12/03/2024 Pre-diabetes 12/03/2024 Assessment & Plan (01/05/2025 1:00 PM EDT): Encounters Date Type Department Care Team Description 03/24/2025 3:02 PM EDT Anesthesia Event [facility] [address] [place] [phone] Troy Royal MD 03/24/2025 2:04 PM EDT - 03/24/2025 11:59 PM EDT Hospital Encounter [facility] [address] [place] [phone] Bal Galaviz DO Pierce, Trudy A, CRNA Dasilva, John E, MD Colon cancer screening Discharge Disposition: Home or Self Care 02/12/2025 11:28 AM EDT - 02/12/2025 11:59 PM EDT Hospital Encounter CT Scan - [address] [phone] Seizure disorder, focal motor (CMS/HCC V24, CMS/HCC V28) Discharge Disposition: Home or Self Care 02/11/2025 11:30 AM EDT Office Visit Internal Medicine - [place] [address] [facility] [address] [place] [phone] Jeff Vale MD Seizure disorder, focal motor (CMS/HCC V24, CMS/HCC V28) (Primary Dx); Acute systolic congestive heart failure (CMS/HCC V24, [facility] V28); NORY (acute kidney injury) ([facility] V24); Morbid obesity ([facility] V24, [facility] V28) 02/11/2025 Telephone Internal Medicine - [address] [place] [address] Karma Salomon RN Seizures from Last 3 Months Immunizations Name Administration Dates Next Due Tdap Tetanus diptheria acell ular pertussis (Boostrix; Adacel) 7yo and older 06/02/2014 Surgical History Surgery Date Site/Laterality Comments OTHER SURGICAL HISTORY 1994 PROCEDURE: ---- OTHER ----; COMMENT: Right tib/fib Medical History Medical History Date Comments Morbid obesity ([facility] V24, [facility] V28) 04/28/2014 DX:Morbid obesity ([facility]) MARANDA (obstructive sleep apnea) 05/11/2014 DX :MARANDA (obstructive sleep apnea); COMMENT: Sleep study - 05/08/14 - severe degree of sleep apnea, relieved with the use of nasal CPAP; CPAP 12 cm H2O recommended Chronic kidney disease, stag e 3 ([facility] V24, [facility] V28) Sepsis ([facility] V24, [facility] V28) secondary to acute bilateral tonsillitis Dysphagia Acute hypoxic respiratory fa ilure ([facility] V24, [facility] V28) Hypertension Family History Medical History Relation [...] Description 06/07/2025 10:00 AM EDT Ancillary Procedure [facility] Card[facility] [address] [place] [address] 07/21/2025 10:10 AM EDT Office Visit [facility] [address] [place] [address] [address] [place] [address] Deep Albrecht NP [address] [place] [address] [address] [place] [address] 08/05/2025 11:00 AM EDT Consult Bariatric Surgery - [place] [address] [facility] [address] [place] [phone] Saundra Gonzalez MD [address] [facility] [address] [place] [address] Health Maintenance Due Date Last Done Comments [...] pathology results. Narrative 03/24/2025 3:[address] [facility] GI Patient Name: Zackary Lopez Procedure Date: 03/24/2025 3:05 PM Date of : 1980 Age: 44 Gender: Male Note Status: Finalized Attending MD: Bal Galaviz DO, [id number] Procedure Date No Time: 03/24/2025 Procedure: Colonoscopy [...] the physician, the nurse, the anesthesiologist, the forestry pilot and the technician chemical cleaning in the pre-procedure area in the endoscopy [...] retroflexion views. Procedure Code(s): --- Professional --- 41843, Colonoscopy, flexible; with removal of tumor(s), polyp(s), or other lesion(s) by snare technique Diagnosis Code(s): --- Professional --- Z12.11, Encounter for screening for malignant neoplasm of colon K64.9, Unspecified hemorrhoids D12.4, Benign neoplasm of descending colon D12.3, Benign neoplasm of transverse colon (hepatic flexure or splenic flexure) CPT copyright 2020 [employer]. All rights reserved. The codes documented in this report are preliminary and upon sleeve fixer review may be revised to meet current compliance requirements. BAL Galaviz DO 03/24/2025 3:27:19 PM This report has been signed electronically.Bal Galaviz DO Number of Addenda: 0 Note Initiated On: 03/24/2025 3:05 PM Scope Withdrawal Time: 0 hours 12 minutes 41 seconds Scope In: 3:10:36 PM Scope Out: 3:24:50 PM Endoscopy Department at [facility] - [address] [place] [phone] Procedure Note Bal Galaviz DO - 03/24/2025 [facility] GI Patient Name: Zackary Lopez Procedure Date: 03/24/2025 3:05 PM Date of : 1980 Age: 44 Gender: Male Note Status: Finalized Attending MD: Bal Galaviz DO, [id number] Procedure Date No Time: 03/24/2025 Procedure: Colonoscopy [...] the physician, the nurse, the anesthesiologist, the forestry pilot and thetechnician in the pre-procedure area in [...] retroflexion views. Procedure Code(s): --- Professional --- 91964, Colonoscopy, flexible; with removal of tumor(s), polyp(s), or other lesion(s) by snare technique Diagnosis Code(s): --- Professional --- Z12.11, Encounter for screening for malignantneoplasm of colon K64.9, Unspecified hemorrhoids D12.4, Benign neoplasm of descending colon D12.3, Benign neoplasm of transverse colon (hepatic flexure or splenic flexure) CPT copyright 2020 [employer]. All rights reserved. The codes documented in this report are preliminary and upon sleeve fixer reviewmay be revised to meet current compliance requirements. BAL Galaviz DO 03/24/2025 3:27:19 PM This report has been signed electronically.Bal Galaviz DO Number of Addenda: 0 Note Initiated On: 03/24/2025 3:05 PM Scope Withdrawal Time: 0 hours 12 minutes 41 seconds Scope In: 3:10:36 PM Scope Out: 3:24:50 PM Endoscopy Department at [facility] - [address] [place] [phone] IMPRESSION: - Hemorrhoids found on perianal exam. [...] Multiple levels evaluated. 03/29/2025 2:35 PM EDT [facility] Gross Description A. Large Intestine, [...] multiple levels. hs/DG 03/29/2025 2:35 PM EDT [facility] Disclaimer Unless otherwise specified, all tissue is 10% NB formalin fixed and paraffin embedded. 03/29/2025 2:35 PM EDT [facility] Tissue Transverse colon structure / Unknown 03/24/2025 3:19 PM EDT 03/24/2025 4:12 PM EDT Tissue specimen (specimen) Descending colon structure / Unknown 03/24/2025 3:21 PM EDT 03/24/2025 4:12 PM EDT Bal Galaviz DO LAB PATHOLOGY ORDERABLES Final R esult [facility] [address] [place] [address], * CT Head wo Contrast (02/12/2025 11:41 [...] Signed Date: 02/12/2025 12:20 ET Workstation ID: [id number] Transcribed By: Self Edit Transcribed Date: 02/12/2025 [...] Signed Date: 02/12/2025 12:20 ET Workstation ID: [id number] Transcribed By: Self Edit Transcribed Date: 02/12/2025 12:15 ET Result [facility] Jeff Vale MD IMG CT PROCEDURES Final Result * (ABNORMAL) Lipid panel (04/17/2016) [facility] LDL/HDL Ratio 5(A) 0 - 4 Triglycerides 112 0 - 150 mg/dL Cholesterol 200 0 - 200 mg/dL HDL 39(A) >=40 mg/dL LDL Cholesterol 139(A) 0 - 100 mg/dL Blood Venous blood specimen / Unknown Result [facility] BLOOD ORDERABLES Elisabet l Result * HIV Screening (06/02/2014) [facility] HIV Screening Abstracted Result [facility] Final Result * Hepatitis C Screening (06/02/2014) [facility] Hepatitis C Screening Abstracted Result [facility] Final Result * Annual BMP Blood Test (04/28/2014) [facility] Annual BMP Blood Test Abstracted Result [facility] Final Result from Last 3 Months or Most Recently Relevant to Health Maintenance Insurance [facility] [place] [address] Care Teams Editor Dictionary Relationship Specialty Start Date End Date Jeff Vale MD [address] [facility] [address] [place] [address] PCP - General Internal Medicine 12/02/24
--- OUTSIDE RECORDS SUMMARY | 2025-04-22 14:10 | XMS_ITS | Clinical Summary ---
Author Organization [facility] Address [address] [address] Phone Care Team Providers Care Nursing Faculty Name Role Phone Jose Etienne Reid DO [...] PCV) 1998 Influenza Vaccine (#1) 2025 Insurance [facility] Medicaid Care Teams Nursing Faculty Relationship Specialty Start Date End Date Etienne Wharton DO [address] [facility] [address] [place] [phone] PCP - General Internal Medicine 03/01/21
--- NOTE | 2025-04-22 14:19 | HO.NEPHOV ---
Vital Signs 04/22/25 14:23 Height 6 ft 2 in Weight 325 lb 6 oz BMI 41.8 BP 200/140 H Blood Pressure Location Lt brachial Position Sitting Pulse 86 Pulse Source Pulse Oximeter Pulse Oximetry (%) 96 Oxygen Delivery Method Room Air Intake Visit Reasons: Urgent Appt High BP Under Cutter Required: No Accompanied by: Self / Same As Patient Allergies No Known Allergies Allergy (Verified 04/22/25 16:02) HPI Comments Details: I had the pleasure of seeing Sangeeta in follow up for chronic kidney disease and hypertension. He has been having uncontrolled blood pressure for some time with hypertensive urgencies. He presented to [place] ER recently for it who did not make sure his medications are optimized and was D/Marques as per patient. He has not been compliant with diet. He also has H/O hospitalization due to acute on chronic systolic heart failure , hypertensive emergency, pulmonary edema as well as acute kidney injury. His serum creatinine was 2.78 during his recent hospitalization which had improved to 1.6 at discharge. He denies chest pain, shortness of breath, paroxysmal nocturnal dyspnea, urinary symptoms or orthostasis. He denies taking nonsteroidal anti-inflammatories on a regular basis. He does not have any epistaxis, hemoptysis, hematemesis, melena, joint swellings. He denies having any proteinuria. He is concerned about his systolic heart failure as well as CKD. His systolic BP has remained over 200 PFSH Medical History Pre-diabetes Hypertriglyceridemia MARANDA (obstructive sleep apnea) Morbid obesity Surgical History History of ankle surgery Family History Mother Thyroid disease Maternal Grandmother Diabetes Hypertension Kidney disease Social History Alcohol intake: never Patient Tobacco Use Status: Former Tobacco user Smoked in Last 30 Days: No Use of substances other than those prescribed or required for medical reasons: No Substance Use Type: Marijuana Advance Directives: No Advance Directives Information Provided: No Do you have a plan to hurt others: No Plan Review of Systems Const All systems reviewed & are unremarkable except as noted in HPI and below Physical Exam Vital Signs: Last Vital Signs Pulse 86 04/22/25 14:23 BP 200/140 H 04/22/25 14:23 Pulse Ox 96 04/22/25 14:23 Oxygen Delivery Method Room Air 04/22/25 14:23 BMI result Body Mass Index 41.8 Const General: comfortable and no acute distress Orientation/consciousness: patient oriented x3 HEENT Head: Yes normocephalic Mouth: Normal oral and palatal mucosa present Eyes EOM: EOMs intact bilaterally Neck Neck: Yes supple Resp Auscultation: clear to auscultation bilaterally Cardio Jugular venous distension: no JVD Rate: regular rate GI Palpation (GI): Soft to palpation Auscultation: normal bowel sounds General: Yes no CVA tenderness Back/Spine/Pelvis Back: no CVA tenderness Skin General skin exam: no rashes or lesions noted Neuro General: patient oriented x3 and moves all extremities Extrem General: Yes no pedal edema Results Reviewed Nephrology Results: Hgb, (14.0-18.0) 15.2 g/dl Today WBC, (4.8-10.8) 7.0 X10*3/uL Today Plt Count, (160-400) 232 X10*3/uL Today Sodium, (135-145) 137 mmol/L Today Potassium, (3.3-5.1) 4.2 mmol/L Today Chloride, (96-108) 109 mmol/L H Today Carbon Dioxide, (22-29) 21 mmol/L L Today BUN, (9-16) 31 mg/dL H Today Creatinine, (0.5-1.4) 2.51 mg/dL H Today Calcium, (8.4-10.2) 8.7 mg/dL Today Urine Protein, (Neg-Trace) 300 (3+) mg/dL H Today Urine Creatinine 164.61 mg/dL 02/02/25 Protein/Creatinin Ratio, (<0.2) 0.71 H 02/02/25 Assessment & Plan Assessment & Plan (1) CKD stage 3a, GFR 45-59 ml/min: Code(s): N18.31 - Chronic kidney disease, stage 3a Category: Medical (2) Hypertensive emergency: Code(s): I16.1 - Hypertensive emergency Category: Medical Plan Chad has baseline CKD stage 3 from hypertensive nephropathy. He has history of systolic heart failure. His recent ejection fraction was 35%. He recently had NORY on CKD due to cardiorenal syndrome. At that time he was in hypertensive emergency, pulmonary edema and NORY. He has proteinuria. He needs to lose weight, keep up with a low-sodium diet, be compliant with his medications as well as CPAP. We need to rule out any infiltrative myocardial disease given systolic dysfunction as well as CKD. He recently had hospital visits for systolic BP over 200 and has not made progress in office management of his BP. He has failed outpatient therapy and need hospitalization for secondary W/U, urine for cocaine and optimization of medication. He will need SW as well as VNA service put in for continued care. He will be a great candidate for GLP agonist. I have sent him to [facility] for hospitalization and has discussed this with [facility] Attending. All these have been explained in detail to patient as well. Coding Level of Care Code Est Pt Level 4 (15888) Diagnoses CKD stage 3a, GFR 45-59 ml/min N18.31 Hypertensive emergency I16.1
[2025-04-22 14:23] VITALS: BP 200/140; PULSE 86; O2SAT 96; BMI 41.8
== END 2025-04-22 14:55 | disposition home or self-care (01) ==
LOC: HO.HKAS 14:01
PROVIDERS: PCP Internal Medicine; Visit Provider Internal Medicine Nephrology
DX: N18.31 Chronic kidney disease, stage 3a (principal); I16.1 Hypertensive emergency
CPT/HCPCS: 99214

== ENCOUNTER → 2025-04-22 14:01 | Outpatient (BNVA) | payer OTHER, SELFPAY | PROVIDERS: PCP Internal Medicine; Visit Provider Internal Medicine Nephrology | DX: I16.1 Hypertensive emergency (principal); N18.31 Chronic kidney disease, stage 3a | CPT/HCPCS: 99212 ==

== ENCOUNTER 2025-04-22 15:55 | Inpatient (IN) | payer OTHER, SELFPAY ==
[2025-04-22] VITALS (10 sets, daily range): BP systolic 144–195; BP diastolic 93–125; PULSE 68–99; RESP 12–18; TEMP 36.4–36.7; O2SAT 97–99; BMI 41.7
--- NOTE | ~2025-04-22 | US_ITS ---
EXAMINATION: US KIDNEY BILATERAL HISTORY: Worsening CKD TECHNIQUE: Real-time grayscale ultrasound imaging of the kidneys was performed and images were reviewed. COMPARISON: There are no prior studies available for comparison. FINDINGS: Right kidney: The right kidney measures 11.2 x 5.1 x 4.2 cm. Renal parenchymal echotexture and thickness are normal. There are no masses. There is no hydronephrosis or renal calculi. Left Kidney: The left kidney measures 12.4 x 4.8 x 5.0 cm. Renal parenchymal echotexture and thickness are normal. There is an 8 mm cyst at the upper pole. There is no hydronephrosis or renal calculi. US/US renal BI IMPRESSION: 8 mm left upper pole renal cyst. Otherwise unremarkable renal ultrasound. Electronically signed by: Osito Tanner MD 04/23/2025 07:00 AM EDT
--- NOTE | ~2025-04-22 | CT_ITS ---
CLINICAL HISTORY: [place] CT of the head without contrast. No comparison. Findings: There are several ill-defined areas of increased parenchymal density more prominent in the right frontal lobe superiorly. These are technically indeterminate. No acute hemorrhage is seen. There is no hydrocephalus or mass effect. Impression: Several ill-defined areas of decreased density bilaterally most pronounced right frontal lobe superiorly may be artifactual but are technically indeterminate. Consider further evaluation with MR or short-term follow-up. This document has been electronically signed by: Cameron Kendall MD on 04/22/2025 18:25:10
--- NOTE | ~2025-04-22 | MR_ITS ---
EXAMINATION: MR BRAIN WITHOUT IV CONTRAST HISTORY: Headache, abnormal head CT scan TECHNIQUE: Sagittal T1, and axial T1, FLAIR, T2, gradient echo, and diffusion weighted MR images of the brain were obtained. COMPARISON: Correlation is made with an unenhanced head CT dated 04/22/2025. FINDINGS: There are scattered periventricular and subcortical white matter hyperintensities on the FLAIR and T2-weighted images which are nonspecific, but greater than expected for a patient of this age. There are dilated perivascular spaces bilaterally. The pituitary is normal in size. The cerebellar tonsils are normally located. The ventricular system is normal in size and configuration. There is no mass effect or midline shift. No intra or extra-axial fluid collections are identified. There are no foci of restricted diffusion. Normal vascular flow voids are noted in the basilar and carotid arteries. The visualized paranasal sinuses are clear. MR/MR head/brain wo con IMPRESSION: No evidence of acute intracranial hemorrhage or infarct. Periventricular and subcortical white matter hyperintensities which are nonspecific, but greater than expected for patient of this age. Differential diagnostic considerations include small vessel ischemic disease, migraine, Lyme disease, vasculitis, and demyelinating disease. Electronically signed by: Osito Tanner MD 04/23/2025 03:01 PM EDT
--- NOTE | 2025-04-22 15:59 | ED.GENADULT ---
HPI - General Adult General Chief complaint: Recheck/Abnormal Lab/Rx Stated complaint: high bp Time Seen by Provider: 04/22/25 16:10 Source: patient Mode of arrival: ambulatory Limitations: no limitations History of Present Illness ED Provider: HPI narrative: 44-year-old male with history of CKD, hypertension, obstructive sleep apnea, medication noncompliance, presented to Dr. Montague's office noted to have hypotension was also complaining of headache, dizziness feeling sweaty, it all started yesterday, his blood pressure in the office was 200 systolic with increased diastolic pressure as well and Dr. Montague sent him to emergency department for workup and medical admission, patient states his headache is 4/10 right now he did take a Tylenol and is feeling better, no dyspnea no ongoing chest pain we states he probably missed a few of his high blood pressure medications for the past 1 week because he ran out of them.was in [facility] yesterday and was tx and d/c Related Data Home Medications ?Medication ?Instructions ?Recorded ?Confirmed dapagliflozin propanediol 10 mg 10 mg PO DAILY 01/05/25 01/19/25 tablet (Farxiga) furosemide 20 mg tablet 20 mg PO DAILY 01/05/25 01/19/25 amlodipine 10 mg tablet 10 mg PO DAILY 01/07/25 01/19/25 isosorbide mononitrate 30 mg 30 mg PO BID 01/19/25 01/19/25 tablet,extended release 24 hr spironolactone 25 mg tablet 50 mg PO DAILY 02/11/25 02/11/25 hydralazine 25 mg tablet 25 mg PO TID 04/22/25 Previous Rx's ?Medication ?Instructions ?Recorded carvedilol 6.25 mg tablet 6.25 mg PO BID #60 tabs 02/11/25 Allergies Allergy/AdvReac Type Severity Reaction Status Date / Time No Known Allergies Allergy Verified 04/22/25 16:02 Review of Systems Constitutional: Constitutional: Reports as per [facility] Past Medical History Medical History Pre-diabetes Hypertriglyceridemia MARANDA (obstructive sleep apnea) Morbid obesity Surgical History History of ankle surgery Family History Family History Mother Thyroid disease Maternal Grandmother Diabetes Hypertension Kidney disease Social History Social History Alcohol intake: never Patient Tobacco Use Status: Former Tobacco user Smoked in Last 30 Days: No Use of substances other than those prescribed or required for medical reasons: No Substance Use Type: Marijuana Advance Directives: No Advance Directives Information Provided: No Do you have a plan to hurt others: No Plan Physical Exam ED Vital Signs: Vital Signs - 24 hr 04/22/25 16:00 04/22/25 16:16 04/22/25 17:19 Temperature 97.5 F Pulse Rate 99 81 75 Respiratory Rate 18 12 14 Blood Pressure 195/123 H 180/114 H 176/125 H Pulse Oximetry 98 99 97 Oxygen Delivery Method Room Air Room Air Room Air 04/22/25 17:23 04/22/25 17:24 04/22/25 17:28 Temperature Pulse Rate 75 78 Respiratory Rate 15 Blood Pressure 176/125 H 176/125 H 175/111 H Pulse Oximetry 99 Oxygen Delivery Method Room Air 04/22/25 17:54 Temperature 97.9 F Pulse Rate 75 Respiratory Rate 14 Blood Pressure 144/93 H Pulse Oximetry 97 Oxygen Delivery Method Room Air BMI result Body Mass Index 41.7 Const Other: Gen: ?Overall well-appearing patient HEENT: PERRLA, EOMI, MMM, Neck: Supple, no LAD CV: RRR, no obvious murmurs appreciated Resp: ?No wheezing rales rhonchi no stridor moving air well Abd: ?Bowel sounds are present, no tenderness no rebound no rigidity MSK: FROM, strength 5/5 all extremities Skin: Warm, dry, intact, no lower extremity edema Neuro: ?Alert and oriented x3, moving upper and lower extremities symmetrically, no obvious facial asymmetry noted Course Course Course Narrative: This is an RME: Additional HPI, ROS, PE not included below will be deferred to primary provider. RME assessment and note performed by: Svitlana Oliveira PA-C This is a 89-jepv-kpy-male, with a hx of CHF, HTN, pulmonary edema, and NORY, who presents to the ER with complaints of HTN. Reports that he went to [facility] ER as his BP was high and was d/c home. He was seen by Dr. Wilder who told patient to come into the ED. Reporting SOB and headache. BP 195/123. BP was 200/140s. Reports that he missed a couple of medications - unsure which ones he has missed. Plan: Labs, EKG, UA, pt immediately brought back to ED for eval/ Medications Administered Discontinued Medications Generic Name Dose Route Start Last Admin Trade Name Enriqueta PRN Reason Stop Dose Admin Hydralazine HCl 50 mg 04/22/25 16:46 04/22/25 17:24 Hydralazine Hcl 50 Mg Tablet PO 04/22/25 16:47 50 mg ONCE ONE Administration Protocol Sodium Chloride 1,000 mls @ 999 mls/hr 04/22/25 17:00 04/22/25 17:23 Ns IV 04/22/25 18:00 999 mls/hr .Q1H1M CATIA Administration Labetalol HCl 10 mg 04/22/25 16:46 04/22/25 17:23 Labetalol Hcl 100 Mg/20 Ml Vial IVPUSH 04/22/25 16:47 10 mg ONCE ONE Administration Morphine Sulfate 4 mg 04/22/25 16:46 04/22/25 17:24 Morphine Sulfate 4 Mg/Ml Cartridge IVPUSH 04/22/25 16:47 4 mg ONCE ONE Administration Protocol Medical Decision Making Medical Decision Making [facility] Narrative: Patient was sent in with concerns for hypertensive emergency and end-organ damage by 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 Monatgue to see if he would like the patient to be admitted regardless of his workup, he is still hypotensive with systolic blood pressure 180/114 without any medications, did take Tylenol feeling better I did perform bedside echo he has no pulmonary edema, no pericardial effusion, no aortic root dilation to suspect aortic dissection, IVC is flat, we will give pain meds for his headache, obtain imaging to obtain to make sure he has no subarachnoid hemorrhage this is unlikely, make sure he has no end-organ damage to his kidneys or heart, Dr. Montague wanted the patient to be admitted I sent him a text to confirm if the workup is negative and blood pressure comes down if he absolutely still needs an admission 17:[address] Montague, regardless he would like him to be admitted for medical optimization as he was in the ER and was discharged with additional medications, patient is confused about his medications, has noncompliance issues as well, he would like me to order urine tox screen as well to make sure he is not using cocaine, and then he will be admitted and will need Nephrology consult 18:00 patient's blood pressure is normalizing, Differential Diagnosis Differential Diagnoses: The differential diagnosis associated with the presentation includes Flash pulmonary edema, hypertensive emergency, subarachnoid hemorrhage, CKD, ACS Admission/Observation Consideration of admission/observation: Escalation of care including admission/observation considered Consult Healthcare Provider Management of the patient was discussed with: Commercial Loan Coordinator (Dr. Montague) Lab Data MDM Lab Attestation statement: I reviewed the patient's lab results. 04/22/25 17:11 04/22/25 16:27 Labs: Lab Results 04/22/25 04/22/25 04/22/25 Range/Units 16:27 16:28 17:11 WBC 7.0 (4.8-10.8) X10*3/uL RBC 5.97 H (4.60-5.80) X10*6/uL Hgb 15.2 (14.0-18.0) g/dl Hct 46.7 (42.0-52.0) % MCV 78.2 L (80.0-98.0) fL MCH 25.5 L (27.0-33.0) pg MCHC 32.5 (31.0-36.0) g/dl RDW 14.7 (11.0-16.0) % Plt Count 232 (160-400) X10*3/uL MPV 10.6 (9.4-12.4) fL Immature Gran % (Auto) 0.1 (0.0-0.4) % Neut % (Auto) 58.7 (45-73) % Lymph % (Auto) 29.3 (20-40) % [place] % (Auto) 8.2 (2-11) % Eos % (Auto) 3.1 (0-4) % Baso % (Auto) 0.6 (0-2) % Lymph # (Auto) 2.1 (1.2-4.9) X10*3/uL [place] # (Auto) 0.6 (0.1-1.2) X10*3/uL Eos # (Auto) 0.2 (0.0-0.4) X10*3/uL Baso # (Auto) 0.0 (0.0-0.2) X10*3/uL Abs Immat Gran (auto) 0.01 (0.00-0.03) X10*3/uL Absolute Neuts (auto) 4.1 (2.0-8.3) x10*3/uL Absolute Nucleated RBC 0.000 (0.0-0.012) X10*3/uL Nucleated RBC % (auto) 0.0 (0.0-0.2) /100WBC Sodium 137 (135-145) mmol/L Potassium 4.2 (3.3-5.1) mmol/L Chloride 109 H (96-108) mmol/L Carbon Dioxide 21 L (22-29) mmol/L Anion Gap 11 L (12-20) BUN 31 H (9-16) mg/dL Creatinine 2.51 H (0.5-1.4) mg/dL Estim Creat Clear Calc 56.9 Estimated GFR 28 Random Glucose 83 (60-115) mg/dL Calcium 8.7 (8.4-10.2) mg/dL Magnesium 2.4 (1.6-2.6) mg/dL Total Bilirubin 0.5 (0.0-1.0) mg/dL Direct Bilirubin 0.1 (0.0-0.5) mg/dL AST 29 (5-37) U/L ALT 23 (0-40) U/L Alkaline Phosphatase 76 (39-117) U/L Troponin I High Sens 19.9 (<3.5-35.0) ng/L Total Protein 7.6 (6.5-8.0) g/dL Albumin 3.6 (3.5-5.0) g/dL Urine Color Urine Appearance Urine pH (5.0-9.0) Ur Specific [place] (1.005-1.025) Urine Protein (Neg-Trace) mg/dL Urine Glucose (UA) (Negative) mg/dL Urine Ketones (Negative) mg/dL Urine Blood (Negative) Urine Nitrite (Negative) Ur Leukocyte Esterase (Negative) Urine RBC (0-2) /HPF Urine WBC (0-5) /HPF Ur Squamous Epith Cells (0-2) /HPF Urine Bacteria (None Seen) Hyaline Casts (0-2) /LPF Urine Opiates Screen (Not Detect) Ur Buprenorphine Scrn (Not Detect) ng/mL Ur Oxycodone Screen (Not Detect) ng/mL Urine Methadone Screen (Not Detect) ng/mL Urine Fentanyl Screen (Not Detect) Ur Barbiturates Screen (Not Detect) Ur Phencyclidine Scrn (Not Detect) Ur Amphetamines Screen (Not Detect) U Benzodiazepines Scrn (Not Detect) Urine Cocaine Screen (Not Detect) U Marijuana (THC) Screen (Not Detect) Influenza Type A (PCR) NEGATIVE (Negative) Influenza Type B (PCR) NEGATIVE (Negative) RSV RNA Qual (PCR) NEGATIVE (Negative) SARS-CoV-2 RNA (RT-PCR) NEGATIVE (Negative) 04/22/25 Range/Units 17:49 WBC (4.8-10.8) X10*3/uL RBC (4.60-5.80) X10*6/uL Hgb (14.0-18.0) g/dl Hct (42.0-52.0) % MCV (80.0-98.0) fL MCH (27.0-33.0) pg MCHC (31.0-36.0) g/dl RDW (11.0-16.0) % Plt Count (160-400) X10*3/uL MPV (9.4-12.4) fL Immature Gran % (Auto) (0.0-0.4) % Neut % (Auto) (45-73) % Lymph % (Auto) (20-40) % [place] % (Auto) (2-11) % Eos % (Auto) (0-4) % Baso % (Auto) (0-2) % Lymph # (Auto) (1.2-4.9) X10*3/uL [place] # (Auto) (0.1-1.2) X10*3/uL Eos # (Auto) (0.0-0.4) X10*3/uL Baso # (Auto) (0.0-0.2) X10*3/uL Abs Immat Gran (auto) (0.00-0.03) X10*3/uL Absolute Neuts (auto) (2.0-8.3) x10*3/uL Absolute Nucleated RBC (0.0-0.012) X10*3/uL Nucleated RBC % (auto) (0.0-0.2) /100WBC Sodium (135-145) mmol/L Potassium (3.3-5.1) mmol/L Chloride (96-108) mmol/L Carbon Dioxide (22-29) mmol/L Anion Gap (12-20) BUN (9-16) mg/dL Creatinine (0.5-1.4) mg/dL Estim Creat Clear Calc Estimated GFR Random Glucose (60-115) mg/dL Calcium (8.4-10.2) mg/dL Magnesium (1.6-2.6) mg/dL Total Bilirubin (0.0-1.0) mg/dL Direct Bilirubin (0.0-0.5) mg/dL AST (5-37) U/L ALT (0-40) U/L Alkaline Phosphatase (39-117) U/L Troponin I High Sens (<3.5-35.0) ng/L Total Protein (6.5-8.0) g/dL Albumin (3.5-5.0) g/dL Urine Color Yellow Urine Appearance Clear Urine pH 5.5 (5.0-9.0) Ur Specific [place] 1.025 (1.005-1.025) Urine Protein 300 (3+) H (Neg-Trace) mg/dL Urine Glucose (UA) Negative (Negative) mg/dL Urine Ketones Trace (Negative) mg/dL Urine Blood Trace H (Negative) Urine Nitrite Negative (Negative) Ur Leukocyte Esterase Negative (Negative) Urine RBC 0-2 (0-2) /HPF Urine WBC 0-5 (0-5) /HPF Ur Squamous Epith Cells 0-2 (0-2) /HPF Urine Bacteria None Seen (None Seen) Hyaline Casts 3-5 (0-2) /LPF Urine Opiates Screen POSITIVE H (Not Detect) Ur Buprenorphine Scrn Not Detected (Not Detect) ng/mL Ur Oxycodone Screen Not Detected (Not Detect) ng/mL Urine Methadone Screen Not Detected (Not Detect) ng/mL Urine Fentanyl Screen Not Detected (Not Detect) Ur Barbiturates Screen Not Detected (Not Detect) Ur Phencyclidine Scrn Not Detected (Not Detect) Ur Amphetamines Screen Not Detected (Not Detect) U Benzodiazepines Scrn Not Detected (Not Detect) Urine Cocaine Screen Not Detected (Not Detect) U Marijuana (THC) Screen POSITIVE H (Not Detect) Influenza Type A (PCR) (Negative) Influenza Type B (PCR) (Negative) RSV RNA Qual (PCR) (Negative) SARS-CoV-2 RNA (RT-PCR) (Negative) Independent Interpretation I performed an independent interpretation of an: CT Scan (No obvious intraparenchymal hemorrhage, will await official report) Radiology Impression Discussion of test interpretation with radiology: I have reviewed the radiologist's reading. Radiologist Impression: Several ill-defined areas of decreased density bilaterally most pronounced right frontal lobe superiorly may be artifactual but are technically indeterminate. Consider further evaluation with MR or short-term follow-up. Critical Care Time Critical Care Time Total Critical Care Time: 60 Attestation: Time is exclusive of separately billable procedures. Time includes: direct patient care, patient reassessment, coordination of patient care, interpretation of data (laboratory data, pulse oximetry, arterial blood gases and chest xrays), review of patient's medical records, medical consultation and documentation of patient care. Procedures excluded from critical care time: central intravenous line placement and electrocardiography. Discharge Plan Discharge Clinical Impression: Hypertensive emergency, CKD stage 3a, GFR 45-59 ml/min Patient Disposition: Admitted As Inpatient Print Language: Armenian
--- NOTE | 2025-04-22 16:02 | ECG_ITS ---
Test Reason : sob Blood Pressure : */* mmHG Vent. Rate : 83 BPM Atrial Rate : 83 BPM P-R Int : 168 ms QRS Dur : 110 ms QT Int : 404 ms P-R-T Axes : 66 -37 16 degrees QTcB Int : 474 ms Normal sinus rhythm Possible Left atrial enlargement Left axis deviation Incomplete right bundle branch block Minimal voltage criteria for LVH, may be normal variant ( [employer] product ) Abnormal ECG No previous ECGs available Referred By: Svitlana Oliveira Electronically Signed By: Cameron Whiting
[2025-04-22 16:58] LABS: Alanine Aminotransferase 23 U/L (0-40); Albumin Level 3.6 g/dL (3.5-5.0); Alkaline Phosphatase 76 U/L (39-117); Anion Gap 11 (12-20); Aspartate Amino Transferase 29 U/L (5-37); Blood Urea Nitrogen 31 mg/dL (9-16); Calcium 8.7 mg/dL (8.4-10.2); Carbon Dioxide 21 mmol/L (22-29); Chloride 109 mmol/L (96-108); Creatinine Clr Calc Pharmacy 56.9; Estimated Glomerular Filt Rate 28; Magnesium 2.4 mg/dL (1.6-2.6); Potassium 4.2 mmol/L (3.3-5.1); Sodium 137 mmol/L (135-145); Total Protein 7.6 g/dL (6.5-8.0)
[2025-04-22 17:03] LABS: Troponin-I High Sensitivity 19.9 ng/L (<3.5-35.0)
[2025-04-22 17:16] LABS: Resp Syncy Virus RNA Qual PCR NEGATIVE (Negative); SARS COV2 PCR INHOUSE NEGATIVE (Negative)
[2025-04-22 17:19] LABS: Hematocrit 46.7 % (42.0-52.0); Hemoglobin 15.2 g/dl (14.0-18.0); Imm Gran Abs Auto 0.01 X10*3/uL (0.00-0.03); Imm Gran Pct Auto 0.1 % (0.0-0.4); Lymphocytes Absolute Auto 2.1 X10*3/uL (1.2-4.9); Mean Corpuscular HGB Conc 32.5 g/dl (31.0-36.0); Mean Corpuscular Hemoglobin 25.5 pg (27.0-33.0); Mean Corpuscular Volume 78.2 fL (80.0-98.0); NRBC Abs Auto 0.000 X10*3/uL (0.0-0.012); NRBC Pct Auto 0.0 /100WBC (0.0-0.2); Platelet Count 232 X10*3/uL (160-400); Red Blood Count 5.97 X10*6/uL (4.60-5.80); White Blood Count 7.0 X10*3/uL (4.8-10.8)
[2025-04-22 17:57] LABS: Appearance Urine Clear; Glucose Urine UA Negative (Negative); PH 5.5 (5.0-9.0); Specific Gravity - Urine 1.025 (1.005-1.025); UMIC TRIGGER UACC YES
[2025-04-22 18:07] LABS: Cannabinoid Screen Urine POSITIVE (Not Detect)
[2025-04-22 18:31] LABS: MANUAL DIFF FLAG NO
--- NOTE | 2025-04-22 20:45 | P.HPHOSP_ITS ---
History of Present Illness Date of Service: 04/22/25 Attending physician on admission: Lissett Morton Chief Complaint: High blood pressure Sangeeta Lopez is a 44 years old man with past medical history significant for hypertension, CKD stage 3, HFrEF (35%), obstructive sleep apnea on CPAP and morbid obesity presents to the emergency department complaining of elevated blood pressure. He was seen at [place] [facility]. His blood pressure was controlled and sent home with new prescriptions for Isordil, hydralazine, amlodipine and spironolactone. Patient has not taken any of these medications. He was seen by a exercise scientist today, Dr. Montague who recommended hospitalization for hypertension medication optimization. The patient is a very poor historian and seems to be very confused about his home medications. It seems like he ran out of Isordil and Farxiga. He provided a list of medications given in December of this year: Amlodipine, Farxiga, furosemide, isosorbide, metoprolol and spironolactone. He was experiencing headaches. Patient denied any symptoms such as chest pain, shortness or breath, palpitations, abdominal pain, nausea, vomiting with diarrhea. He does not follow a healthy diet. He denied illegal drug use. He does not smoke tobacco but smoked marijuana in occasions. He also drinks alcohol occasionally. In the ED, he was initially found to have blood pressure 200/140. He received treatment with hydralazine 50 mg p.o., labetalol 10 mg IV, morphine 4 mg IV and 1 bolus of normal saline. Subsequently, BP decreased to 144/93 but is starting to increase again. Last blood pressure is 171/111. Blood workup showed no leukocytosis. Hemoglobin is 15.2 and platelets 232. There are no significant electrolyte imbalances. CO2 is 21, BUN is 31, creatinine 2.51 and normal anion gap. LFTs, albumin and total protein and normal. Urinalysis showed proteinuria and trace blood without evidence of UTI. Urine drug screen is positive for marijuana and opiates. Viral testing for influenza, RSV and COVID-[address] scan without contrast showed several ill-defined areas of decreased density bilateral most pronounced in the right frontal lobe superiorly may be artifactual were are technically indeterminate. ECG showed normal sinus rhythm, incomplete right bundle-branch block without ischemic changes. ED tx: NS 1 L bolus, hydralazine 50 mg p.o., labetalol 10 mg IV, morphine 4 mg IV Review of Systems 2 Review of Systems: All 12 systems were reviewed and normal except as noted in HPI. [facility] Medical History Pre-diabetes Hypertriglyceridemia MARANDA (obstructive sleep apnea) Morbid obesity Family History Mother Thyroid disease Maternal Grandmother Diabetes Hypertension Kidney disease Surgical History History of ankle surgery Social History Alcohol intake: never Patient Tobacco Use Status: Former Tobacco user Smoked in Last 30 Days: No Use of substances other than those prescribed or required for medical reasons: No Substance Use Type: Marijuana Advance Directives: No Advance Directives Information Provided: No Do you have a plan to hurt others: No Plan Meds Allergies Allergy/AdvReac Type Severity Reaction Status Date / Time No Known Allergies Allergy Verified 04/22/25 16:02 Active Medications: Current Medications Acetaminophen (Acetaminophen 325 Mg Tablet) 975 mg PO Q6H PRN PRN Reason: Pain, Mild 1-3,fever,headache Amlodipine Besylate (Amlodipine Besylate 5 Mg Tablet) 5 mg PO BEDTIME CATIA; Protocol Carvedilol (Carvedilol 12.5 Mg Tablet) 12.5 mg PO BID CATIA; Protocol Heparin Sodium (Porcine) (Heparin Sodium,Porcine 5,000 Unit/Ml Vial) 5,000 unit SUBCUT Q12H [facility] Hydralazine HCl (Hydralazine Hcl 25 Mg Tablet) 25 mg PO TID CATIA; Protocol Magnesium Hydroxide (Milk Of Magnesia 30 Ml Oral.Susp) 30 ml PO DAILY PRN PRN Reason: Constipation Melatonin (Melatonin 3 Mg Tablet) 6 mg PO BEDTIME PRN PRN Reason: Insomnia Sodium Chloride (0.9 % Sodium Chloride Flush 3 Ml Syringe) 3 ml IVFLUSH QSHIFT [facility] Home Medications ?Medication ?Instructions ?Recorded ?Confirmed ?Last Taken ?Type dapagliflozin propanediol 10 mg 10 mg PO DAILY 01/05/ 5 01/19/25 Unknown History tablet (Farxiga) furosemide 20 mg tablet 20 mg PO DAILY 01/05/25 04/0 06/07 Unknown History isosorbide mononitrate 30 mg 30 mg PO BID 01/19/2506/07 Unknown History tablet,extended release 24 hr amlodipine 5 mg tablet 5 mg PO BID 04/22/25 Unknow n History hydralazine 25 mg tablet 25 mg PO TID 04/22/25 Unkno wn History labetalol 200 mg tablet 200 mg PO BID 04/22/25 Unkn own History spironolactone 25 mg tablet 25 mg PO DAILY 04/22/25 U nknown History Physical Exam 2 Vital Signs and Narrative: Vital Signs: Last Vital Signs Temp 98.0 F 04/22/25 20:12 Pulse 68 04/22/25 20:12 Resp 14 04/22/25 17:54 BP 171/111 H 04/22/25 20:12 Pulse Ox 98 04/22/25 20:12 O2 Del Method Room Air 04/22/25 20:12 BMI result Body Mass Index 41.7 Constitutional - Awake and Alert, No apparent distress. Obese. HEENT - PER, EOMI Heart - RRR, No murmurs Lungs - Normal lung expansion, Normal respiratory effort, No respiratory distress, CTA bilaterally Abdomen - NT / ND; +BS; No rebound or guarding Extremities - nonpitting edema Musculoskeletal - Normal inspection, normal ROM Skin - Warm/Dry Neurological - Alert & oriented x3. No focal weakness grossly noted. Psychological - Appropriate affect Results Labs 04/22/25 17:11 04/22/25 16:27 Labs: Laboratory Results - last 24 hr 04/22/25 04/22/25 04/22/25 16:27 16:28 17:11 MCV 78.2 L MCH 25.5 L MCHC 32.5 RDW 14.7 Plt Count 232 MPV 10.6 Immature Gran % (Auto) 0.1 Neut % (Auto) 58.7 Lymph % (Auto) 29.3 Door % (Auto) 8.2 Eos % (Auto) 3.1 Baso % (Auto) 0.6 Lymph # (Auto) 2.1 Door # (Auto) 0.6 Eos # (Auto) 0.2 Baso # (Auto) 0.0 Abs Immat Gran (auto) 0.01 Absolute Neuts (auto) 4.1 Absolute Nucleated RBC 0.000 Nucleated RBC % (auto) 0.0 Anion Gap 11 L Estim Creat Clear Calc 56.9 Estimated GFR 28 Random Glucose 83 Calcium 8.7 Magnesium 2.4 Total Bilirubin 0.5 Direct Bilirubin 0.1 AST 29 ALT 23 Alkaline Phosphatase 76 Total Protein 7.6 Albumin 3.6 Urine Color Urine Appearance Urine pH Ur Specific [place] Urine Protein Urine Glucose (UA) Urine Ketones Urine Blood Urine Nitrite Ur Leukocyte Esterase Urine RBC Urine WBC Ur Squamous Epith Cells Urine Bacteria Hyaline Casts Urine Opiates Screen Ur Buprenorphine Scrn Ur Oxycodone Screen Urine Methadone Screen Urine Fentanyl Screen Ur Barbiturates Screen Ur Phencyclidine Scrn Ur Amphetamines Screen U Benzodiazepines Scrn Urine Cocaine Screen U Marijuana (THC) Screen Influenza Type A (PCR) NEGATIVE Influenza Type B (PCR) NEGATIVE RSV RNA Qual (PCR) NEGATIVE SARS-CoV-2 RNA (RT-PCR) NEGATIVE 04/22/25 17:49 MCV MCH MCHC RDW Plt Count MPV Immature Gran % (Auto) Neut % (Auto) Lymph % (Auto) Door % (Auto) Eos % (Auto) Baso % (Auto) Lymph # (Auto) Door # (Auto) Eos # (Auto) Baso # (Auto) Abs Immat Gran (auto) Absolute Neuts (auto) Absolute Nucleated RBC Nucleated RBC % (auto) Anion Gap Estim Creat Clear Calc Estimated GFR Random Glucose Calcium Magnesium Total Bilirubin Direct Bilirubin AST ALT Alkaline Phosphatase Total Protein Albumin Urine Color Yellow Urine Appearance Clear Urine pH 5.5 Ur Specific [place] 1.025 Urine Protein 300 (3+) H Urine Glucose (UA) Negative Urine Ketones Trace Urine Blood Trace H Urine Nitrite Negative Ur Leukocyte Esterase Negative Urine RBC 0-2 Urine WBC 0-5 Ur Squamous Epith Cells 0-2 Urine Bacteria None Seen Hyaline Casts 3-5 Urine Opiates Screen POSITIVE H Ur Buprenorphine Scrn Not Detected Ur Oxycodone Screen Not Detected Urine Methadone Screen Not Detected Urine Fentanyl Screen Not Detected Ur Barbiturates Screen Not Detected Ur Phencyclidine Scrn Not Detected Ur Amphetamines Screen Not Detected U Benzodiazepines Scrn Not Detected Urine Cocaine Screen Not Detected U Marijuana (THC) Screen POSITIVE H Influenza Type A (PCR) Influenza Type B (PCR) RSV RNA Qual (PCR) SARS-CoV-2 RNA (RT-PCR) Assessment and Plan (1) Hypertensive urgency: Status: Acute (2) CKD stage 3a, GFR 45-59 ml/min: Status: Acute Plan Sangeeta Lopez is a 44 y/o man with a PMHx admitted with: Hypertensive urgency, improving. Compliance with medications?? Received prescription for multiple antihypertensive meds yesterday but decided not to take them until evaluation by exercise scientist today. Admit to hospitalist service. Start treatment with carvedilol 12.5 mg p.o. b.i.d., hydralazine 25 mg PO TID in amlodipine 5 mg p.o. at bedtime. Continue Isordil 60 mg p.o. daily. Will not continue treatment with spironolactone as GFR < 30. Hold furosemide. Losartan was discontinued in the past. Continue to monitor BP. Low-salt diet. Social work consult. Nephrology consult. Acute on chronic kidney disease due to hypertensive nephropathy with recent history of cardiorenal syndrome (per nephrology notes last hospitalization creatinine was 1.6 at discharge) + proteinuria; concern for infiltrative disease due to underlying CHF, however, normal LFTs: JAY test, LDH, SPEP, UPEP, cardiac MRI, ferritin, transferrin and EPHRAIM. Low K diet. Hold spironolactone or furosemide. NS 1 L bolus given in ED. Check hemoglobin A1c, lipid panel and total CK. To consider cardiac MRI. Headache, resolved. Head CT scan showed several ill-defined areas of increased parenchymal deficit more prominent in the right frontal lobe. We will obtain brain MRI for better assessment. HFrEF (35%). Continue carvedilol and Farxiga. Hold furosemide for now due to above. No evidence of acute CHF. Obstructive sleep apnea. Nocturnal CPAP. Morbid obesity, BMI 41.8 kg/m2. Encouraged to lose weight and daily exercise. He is a candidate for GLP 1. DVT prophylaxis: Heparin Code status: Full Patient will need hospitalization for hypertensive urgency treatment for medication optimization and further evaluation for infiltrative disease. Quality Stroke Does the patient have a stroke diagnosis?: No VTE Prior VTE?: No VTE Risk Level:: Medical - moderate - high VTE Device Contraindication: Treatment Not Indicated VTE Drug Contraindication: N/A - Med Ordered
--- NOTE | 2025-04-22 20:54 | PHA.MEDREC ---
Addendum entered by Hernandez Newberry PharmD 04/22/25 21:01: reviewed Original Note: Pharmacy Consult ? Medication Reconciliation Pharmacy has completed the medication reconciliation. Spoke to patient to confirm med list. Patient had all his medication bottles with him. Patient confirmed his doctor told him to stop taking Losartan 50 mg, and Metoprolol succ 50 mg. Patient states his Dr told him to take Isosorbide mono ER 60 mg daily (2x 30 mg) claims and rx bottle has Isosorbide mono ER 30 mg daily, Amlodipine 10 mg (2x 5mg) daily Not 5 mg BID as claims state. Patient last had his medications 2 days ago.
[2025-04-22 22:53] LABS: Ferritin 121 ng/mL (20-250)
[2025-04-23] VITALS (10 sets, daily range): BP systolic 127–204; BP diastolic 76–119; PULSE 64–77; RESP 14–20; TEMP 36.6; O2SAT 94–99
[2025-04-23 06:44] LABS: MANUAL DIFF FLAG NO
--- NOTE | 2025-04-23 06:54 | PC.NURSE ---
MRI screening form completed w/ pt, form faxed over to MRI
[2025-04-23 06:56] LABS: Hematocrit 48.1 % (42.0-52.0); Hemoglobin 15.4 g/dl (14.0-18.0); Imm Gran Abs Auto 0.03 X10*3/uL (0.00-0.03); Imm Gran Pct Auto 0.4 % (0.0-0.4); Lymphocytes Absolute Auto 2.5 X10*3/uL (1.2-4.9); Mean Corpuscular HGB Conc 32.0 g/dl (31.0-36.0); Mean Corpuscular Hemoglobin 25.2 pg (27.0-33.0); Mean Corpuscular Volume 78.7 fL (80.0-98.0); NRBC Abs Auto 0.000 X10*3/uL (0.0-0.012); NRBC Pct Auto 0.0 /100WBC (0.0-0.2); Platelet Count 234 X10*3/uL (160-400); Red Blood Count 6.11 X10*6/uL (4.60-5.80); White Blood Count 7.0 X10*3/uL (4.8-10.8)
--- NOTE | 2025-04-23 07:00 | CA_ITS ---
Transthoracic Echocardiogram Patient (Last, First, Middle): Sangeeta Lopez, Gender: Male Date of : 1980 Age: 44 Procedure Date: 04/23/2025 Procedure Type: Transthoracic Echocardiogram Location: ER Height: 187.96 cm Weight: 147.42 kg BSA: 2.67 m2 Heart Rate: bpm BP: 169 / 106 mmHg Pit Steward: TO Referring MD: Lissett Morton MD Symptoms: History of CHF. Uncontrolled hypertension Study Quality: Fair/Contrast Conclusions: - Mildly increased left ventricular cavity size. There is mildly increased left ventricular wall thickness. The left ventricular systolic function is mildly decreased. The visually estimated ejection fraction is between 40-45%. - Mildly increased right ventricular cavity size. There is normal right ventricular systolic function. - There is mild dilatation of the sinuses of Valsalva measuring 4.08 cm and mild dilatation of the ascending aorta measuring 3.70 cm. Findings Procedure Information Contrast agent, definity, is being given per protocol without apparent complications. Left Ventricle Mildly increased left ventricular cavity size. There is mildly increased left ventricular wall thickness. The left ventricular systolic function is mildly decreased. The visually estimated ejection fraction is between 40 45%. There is no evidence of regional wall motion abnormalities. Abnormal diastolic function is noted. Spectral Doppler is indicative of an impaired relaxation filling pattern. Normal left ventricular filling pressures. Right Ventricle Mildly increased right ventricular cavity size. There is normal right ventricular systolic function. Atria The left atrium is mildly dilated. The right atrium is mildly dilated. Aortic Valve Normal aortic valve structure and function. There is no aortic valve stenosis. There is no aortic valve regurgitation. Mitral Valve The mitral valve appears normal. There is no mitral valve regurgitation. There is no mitral valve stenosis. Pulmonic Valve The pulmonic valve is likely normal. Tricuspid Valve Normal tricuspid valve structure. There is no tricuspid valve regurgitation. Tricuspid regurgitation envelope is inadequate for calculation of right ventricular systolic pressure. Mildly elevated right atrial pressure. Great Vessels There is mild dilatation of the sinuses of Valsalva measuring 4.08 cm and mild dilatation of the ascending aorta measuring 3.70 cm. The visualized portions of the pulmonary artery and branches are normal. Venous The inferior vena cava is dilated and collapses greater than 50% with inspiration. Pericardium/Pleural There is a trivial pericardial effusion. Prior Study Comparison No prior study available for comparison. Measurements 2D Linear Measurements IVSd: 1.68 0.6-0.9/0.6-1.0 cm LVIDd: 6.54 3.9-5.3/4.2-5.9 cm LVIDd Index: 2.45 2.4-3.2/2.2-3.1 cm/m2 LVIDs: 5.31 2.0-3.6 cm LVPWd: 1.47 0.7-1.1 cm LA Diam: 4.50 2.7-3.8/3.0-4.0 cm LAIDs Index: 1.69 1.5-2.3 cm/m2 LV Mass: 655.33 67-162/88-224 g LV Mass Index: 245.44 43-95/49-115 g/m2 LVOT Diam: 2.70 3.0+(-)1.3 cm 2D Systolic Function EF 4C: 37.80 >55% EF 2C: 31.80 >55% EF BiP: 34.10 >55% Mitral Valve MV Pk E: 0.31 MV PK A: 0.46 MV Decel Time: 268.00 E/A: 0.70 E'Lateral: 4.03 E'Medial: 3.81 E/E' Med: 8.10 E/E' Lat: 7.60 PHT: 79.00 MVA PHT: 2.78 Decel [place]: 1.15 Aortic Valve AoV Pk Jose Elias: 1.22 AoV Mn Jose Elias: 0.81 AoV VTI: 0.20 AoV Pk Grad: 6.00 Aov Mn Grad: 3.00 TANNER Cont.VTI: 3.64 LVOT LVOT Pk Jose Elias: 0.68 LVOT Mn Jose Elias: 0.44 LVOT VTI: 0.13 LVOT Pk Grad: 2.00 LVOT Mn Grad: 1.00 LVOT Diam: 2.70 LVOT Area: 5.73 Diastolic Function MV Pk E: 0.31 MV Pk A: 0.46 E/A: 0.70 E'Medial: 3.81 E/E' Med: 8.10 E' Laterial: 4.03 E/E' Lat: 7.60 Right Ventricle TAPSE (mm): 31.50 TVS' Jose Elias: 14.80 Great Vessels Aorta Sinus of Valsalva: 4.08 2.0-3.5 cm Ao Asc: 3.70 2.1-3.4 cm Updated in Other Vendor System with Status of Final Cameron Whiting MD electronically signed on 04/24/2025 8:32:45 AM with status of Final
[2025-04-23 07:06] LABS: Hemoglobin A1C 143.5066 umol/L; Total Hemoglobin (HGBA1C) 4082.2778 umol/L
[2025-04-23 07:17] LABS: Cholesterol 209 mg/dL (<200); HDL Cholesterol 29 mg/dL (>40); Triglycerides 140 mg/dL (<150)
[2025-04-23 07:24] LABS: Blood Urea Nitrogen 28 mg/dL (9-16); Calcium 8.4 mg/dL (8.4-10.2); Creatinine Clr Calc Pharmacy 68.3; Estimated Glomerular Filt Rate 35; Magnesium 2.2 mg/dL (1.6-2.6)
[2025-04-23 07:31] LABS: Anion Gap 11 (12-20); Carbon Dioxide 25 mmol/L (22-29); Chloride 105 mmol/L (96-108); Potassium 3.2 mmol/L (3.3-5.1); Sodium 138 mmol/L (135-145); Thyroid Stimulating Hormone 1.42 uIU/mL (0.32-4.0)
[2025-04-23 07:39] LABS: Reflex LDLD? No
--- NOTE | 2025-04-23 08:00 | HO.PM.IMPN ---
Subjective Subjective Date of Service: 04/23/25 Physical Exam Vital Signs: Vital Signs: Last Vital Signs Temp 97.8 F 04/22/25 21:32 Pulse 64 04/23/25 06:48 Resp 16 04/23/25 06:48 BP 169/106 H 04/23/25 06:48 Pulse Ox 97 04/23/25 06:48 O2 Del Method CPAP 04/23/25 06:48 BMI result Body Mass Index 41.7 Objective Data Active Medications Acetaminophen (Acetaminophen 325 Mg Tablet) 975 mg PO Q6H PRN PRN Reason: Pain, Mild 1-3,fever,headache Amlodipine Besylate (Amlodipine Besylate 5 Mg Tablet) 5 mg PO BEDTIME [facility]; Protocol Last Admin: 04/22/25 20:59 Dose: 5 mg Documented By: BIGG Carvedilol (Carvedilol 12.5 Mg Tablet) 12.5 mg PO BID [facility]; Protocol Last Admin: 04/22/25 20:58 Dose: 12.5 mg Documented By: BIGG Empagliflozin (Empagliflozin 10 Mg Tablet) 10 mg PO DAILY [facility] Heparin Sodium (Porcine) (Heparin Sodium,Porcine 5,000 Unit/Ml Vial) 5,000 unit SUBCUT Q12H [facility] Hydralazine HCl (Hydralazine Hcl 25 Mg Tablet) 25 mg PO TID [facility]; Protocol Last Admin: 04/22/25 20:59 Dose: 25 mg Documented By: BIGG Isosorbide Mononitrate (Isosorbide Mononitrate 60 Mg Tab.Er.24h) 60 mg PO DAILY [facility]; Protocol Magnesium Hydroxide (Milk Of Magnesia 30 Ml Oral.Susp) 30 ml PO DAILY PRN PRN Reason: Constipation Melatonin (Melatonin 3 Mg Tablet) 6 mg PO BEDTIME PRN PRN Reason: Insomnia Sodium Chloride (0.9 % Sodium Chloride Flush 3 Ml Syringe) 3 ml IVFLUSH QSHIFT [facility] Last Admin: 04/23/25 00:00 Dose: 3 ml Documented By: BIGG Labs 04/23/25 06:01 04/23/25 06:01 Labs: Laboratory Results - last 24 hr 04/22/25 04/22/25 04/22/25 16:27 16:28 17:11 MCV 78.2 L MCH 25.5 L MCHC 32.5 RDW 14.7 Plt Count 232 MPV 10.6 Immature Gran % (Auto) 0.1 Neut % (Auto) 58.7 Lymph % (Auto) 29.3 [place] % (Auto) 8.2 Eos % (Auto) 3.1 Baso % (Auto) 0.6 Lymph # (Auto) 2.1 [place] # (Auto) 0.6 Eos # (Auto) 0.2 Baso # (Auto) 0.0 Abs Immat Gran (auto) 0.01 Absolute Neuts (auto) 4.1 Absolute Nucleated RBC 0.000 Nucleated RBC % (auto) 0.0 Anion Gap 11 L Estim Creat Clear Calc 56.9 Estimated GFR 28 Random Glucose 83 Estimat Average Glucose Hemoglobin A1c % Calcium 8.7 Phosphorus Magnesium 2.4 Ferritin Total Bilirubin 0.5 Direct Bilirubin 0.1 AST 29 ALT 23 Alkaline Phosphatase 76 Lactate Dehydrogenase Total Creatine Kinase 298 H Total Protein 7.6 Albumin 3.6 Triglycerides Cholesterol LDL Cholesterol, Calc HDL Cholesterol TSH Urine Color Urine Appearance Urine pH Ur Specific [place] Urine Protein Urine Glucose (UA) Urine Ketones Urine Blood Urine Nitrite Ur Leukocyte Esterase Urine RBC Urine WBC Ur Squamous Epith Cells Urine Bacteria Hyaline Casts Urine Opiates Screen Ur Buprenorphine Scrn Ur Oxycodone Screen Urine Methadone Screen Urine Fentanyl Screen Ur Barbiturates Screen Ur Phencyclidine Scrn Ur Amphetamines Screen U Benzodiazepines Scrn Urine Cocaine Screen U Marijuana (THC) Screen Influenza Type A (PCR) NEGATIVE Influenza Type B (PCR) NEGATIVE RSV RNA Qual (PCR) NEGATIVE SARS-CoV-2 RNA (RT-PCR) NEGATIVE 04/22/25 04/22/25 04/23/25 17:49 21:57 06:01 MCV 78.7 L MCH 25.2 L MCHC 32.0 RDW 15.1 Plt Count 234 MPV 10.4 Immature Gran % (Auto) 0.4 Neut % (Auto) 52.1 Lymph % (Auto) 34.9 [place] % (Auto) 8.1 Eos % (Auto) 3.8 Baso % (Auto) 0.7 Lymph # (Auto) 2.5 [place] # (Auto) 0.6 Eos # (Auto) 0.3 Baso # (Auto) 0.1 Abs Immat Gran (auto) 0.03 Absolute Neuts (auto) 3.7 Absolute Nucleated RBC 0.000 Nucleated RBC % (auto) 0.0 Anion Gap 11 L Estim Creat Clear Calc 68.3 Estimated GFR 35 Random Glucose 92 Estimat Average Glucose 108 Hemoglobin A1c % 5.4 Calcium 8.4 Phosphorus 3.7 Magnesium 2.2 Ferritin 121 Total Bilirubin Direct Bilirubin AST ALT Alkaline Phosphatase Lactate Dehydrogenase 155 Total Creatine Kinase Total Protein Albumin Triglycerides 140 Cholesterol 209 H LDL Cholesterol, Calc 152 H HDL Cholesterol 29 L TSH 1.42 Urine Color Yellow Urine Appearance Clear Urine pH 5.5 Ur Specific [place] 1.025 Urine Protein 300 (3+) H Urine Glucose (UA) Negative Urine Ketones Trace Urine Blood Trace H Urine Nitrite Negative Ur Leukocyte Esterase Negative Urine RBC 0-2 Urine WBC 0-5 Ur Squamous Epith Cells 0-2 Urine Bacteria None Seen Hyaline Casts 3-5 Urine Opiates Screen POSITIVE H Ur Buprenorphine Scrn Not Detected Ur Oxycodone Screen Not Detected Urine Methadone Screen Not Detected Urine Fentanyl Screen Not Detected Ur Barbiturates Screen Not Detected Ur Phencyclidine Scrn Not Detected Ur Amphetamines Screen Not Detected U Benzodiazepines Scrn Not Detected Urine Cocaine Screen Not Detected U Marijuana (THC) Screen POSITIVE H Influenza Type A (PCR) Influenza Type B (PCR) RSV RNA Qual (PCR) SARS-CoV-2 RNA (RT-PCR) Quality Stroke Does the patient have a stroke diagnosis?: No VTE Prior VTE?: No VTE Risk Level:: Medical - moderate - high VTE Device Contraindication: Treatment Not Indicated VTE Drug Contraindication: N/A - Med Ordered
[2025-04-23] MEDS: 0.9 % Sodium Chloride Flush 3 ML SYRINGE IVFLUSH ×2 (08:17)
--- NOTE | 2025-04-23 09:20 | MHC.CM.PN ---
Attempted to meet with patient in regards to discharge planning. Patient sleeping. No family at bedside. Will attempt to meet again. Continue to monitor for d/c needs.
[2025-04-23 13:43] LABS: Anion Gap 11 (12-20); Blood Urea Nitrogen 27 mg/dL (9-16); Calcium 8.7 mg/dL (8.4-10.2); Carbon Dioxide 27 mmol/L (22-29); Chloride 105 mmol/L (96-108); Creatinine Clr Calc Pharmacy 64.3; Estimated Glomerular Filt Rate 32; Potassium 3.7 mmol/L (3.3-5.1); Sodium 139 mmol/L (135-145)
--- NOTE | 2025-04-23 13:43 | PM.CNNEP ---
History of Present Illness Reason for Consult Consult date: 04/23/25 Chief Complaint Chief complaint: Uncontrolled hypertension History of Present Illness Narrative: 44 y/o patient with hypertension, CKD3, HFrEF (35%), MARANDA on CPAP, morbid obesity. Presented to the ED on 04/22 from nephrology office with elevated blood pressures 200/140. Had a recent admission to [facility] for hypertensive urgency BPs 240s/120s. Patient of Dr Nguyen as outpatient. patient reports he has a moderate headache, otherwise no complaints. States when he came in he was feeling in his normal state of health. Received IVF 1L bolus, and labetolol 10mg IV, hydralazine 50mg PO, morphine 4mg. Review of Systems Constitutional: Reports no additional constitutional complaints Eyes: Denies blurry vision Denies dizziness Cardiovascular: Denies chest pain, Denies leg edema, Denies lightheadedness and Denies dyspnea Respiratory: Denies dyspnea Gastrointestinal: Denies abdominal pain, Denies diarrhea, Denies nausea and Denies vomiting Genitourinary: Denies hematuria, Denies oliguria, Denies dysuria and Denies flank pain Musculoskeletal: Denies joint swelling and Denies muscle weakness Skin/Breast: Denies rash Denies dizziness PMFSH Past Medical History Medical History Pre-diabetes Hypertriglyceridemia MARANDA (obstructive sleep apnea) Morbid obesity Family History Family History Mother Thyroid disease Maternal Grandmother Diabetes Hypertension Kidney disease Surgical History Surgical History History of ankle surgery Social History Social History Alcohol intake: never Patient Tobacco Use Status: Former Tobacco user Smoked in Last 30 Days: No Use of substances other than those prescribed or required for medical reasons: No Substance Use Type: Marijuana Advance Directives: No Advance Directives Information Provided: No Do you have a plan to hurt others: No Plan Nutrition Risks: No Nutritional Risk Meds Allergies Allergy/AdvReac Type Severity Reaction Status Date / Time No Known Allergies Allergy Verified 04/22/25 16:02 Active Medications: Current Medications Acetaminophen (Acetaminophen 325 Mg Tablet) 975 mg PO Q6H PRN PRN Reason: Pain, Mild 1-3,fever,headache Last Admin: 04/23/25 13:28 Dose: 975 mg Amlodipine Besylate (Amlodipine Besylate 5 Mg Tablet) 5 mg PO BEDTIME [facility]; Protocol Last Admin: 04/22/25 20:59 Dose: 5 mg Carvedilol (Carvedilol 12.5 Mg Tablet) 12.5 mg PO BID [facility]; Protocol Last Admin: 04/23/25 08:17 Dose: 12.5 mg Empagliflozin (Empagliflozin 10 Mg Tablet) 10 mg PO DAILY [facility] Last Admin: 04/23/25 08:17 Dose: 10 mg Heparin Sodium (Porcine) (Heparin Sodium,Porcine 5,000 Unit/Ml Vial) 5,000 unit SUBCUT Q12H [facility] Last Admin: 04/23/25 08:23 Dose: Not Given Hydralazine HCl (Hydralazine Hcl 25 Mg Tablet) 25 mg PO TID [facility]; Protocol Last Admin: 04/23/25 08:18 Dose: 25 mg Hydralazine HCl (Hydralazine Hcl 20 Mg/Ml Vial) 5 mg IVPUSH Q4H PRN; Protocol PRN Reason: HTN , sbp >180 Isosorbide Mononitrate (Isosorbide Mononitrate 60 Mg Tab.Er.24h) 60 mg PO DAILY [facility]; Protocol Last Admin: 04/23/25 08:18 Dose: 60 mg Magnesium Hydroxide (Milk Of Magnesia 30 Ml Oral.Susp) 30 ml PO DAILY PRN PRN Reason: Constipation Melatonin (Melatonin 3 Mg Tablet) 6 mg PO BEDTIME PRN PRN Reason: Insomnia Sodium Chloride (0.9 % Sodium Chloride Flush 3 Ml Syringe) 3 ml IVFLUSH QSHIFT [facility] Last Admin: 04/23/25 08:17 Dose: 3 ml Home Medications ?Medication ?Instructions ?Recorded ?Confirmed ?Last Taken ?Type dapagliflozin propanediol 10 mg 10 mg PO DAILY 01/05/25 04/22/25 04/20/25 History tablet (Farxiga) furosemide 20 mg tablet 20 mg PO DAILY 01/05/25 04/22/25 04/20/25 History isosorbide mononitrate 30 mg 60 mg PO DAILY 01/19/25 04/22/25 04/20/25 History tablet,extended release 24 hr amlodipine 5 mg tablet 10 mg PO DAILY 04/22/25 04/22/25 04/20/25 History hydralazine 25 mg tablet 25 mg PO TID 04/22/25 04/22/25 04/20/25 History labetalol 200 mg tablet 200 mg PO BID 04/22/25 04/22/25 04/20/25 History spironolactone 25 mg tablet 25 mg PO DAILY 04/22/25 04/22/25 04/20/25 History Physical Exam Vital Signs: Last Vital Signs Temp 97.8 F 04/23/25 10:05 Pulse 71 04/23/25 10:05 Resp 16 04/23/25 10:05 BP 127/76 04/23/25 10:05 Pulse Ox 96 04/23/25 10:05 O2 Del Method Room Air 04/23/25 10:05 BMI result Body Mass Index 41.7 Const General: no acute distress, alert and awake Resp Effort & Inspection: normal respiratory effort and able to speak in complete sentences Auscultation: clear to auscultation bilaterally Cardio Rate: regular rate Rhythm: regular rhythm Heart sounds: S1 normal heart sound present and S2 normal heart sound present GI Palpation (GI): Soft to palpation and nontender General: Yes no CVA tenderness Back/Spine/Pelvis Back: no CVA tenderness Skin Rashes: no rashes Extrem General: No edema Results Lab Results 04/23/25 06:01 04/23/25 06:01 Lab results: Chemistry 04/22/25 04/23/25 16:27 06:01 Sodium 137 138 Potassium 4.2 3.2 L D Carbon Dioxide 21 L 25 BUN 31 H 28 H Creatinine 2.51 H 2.09 H Calcium 8.7 8.4 Phosphorus 3.7 Hematology 04/22/25 04/23/25 17:11 06:01 WBC 7.0 7.0 Hgb 15.2 15.4 Plt Count 232 234 Urinalysis 04/22/25 17:49 Urine Color Yellow Urine Appearance Clear Urine pH 5.5 Ur Specific [place] 1.025 Urine Protein 300 (3+) H Urine Glucose (UA) Negative Urine Ketones Trace Urine Blood Trace H Urine Nitrite Negative Ur Leukocyte Esterase Negative Urine RBC 0-2 Urine WBC 0-5 Ur Squamous Epith Cells 0-2 Hyaline Casts 3-5 Assessment and Plan (1) Hypertensive urgency: Status: Acute (2) CKD stage 3b, GFR 30-44 ml/min: Status: Acute Plan Patient with CKD3b here with hypertensive urgency resolved continue amlodipine 5mg daily, carvedilol 12.5mg BID, hydralazine 25mg PO TID, imdur 60mg daily. If repeat blood pressures this afternoon remain controlled, he may be discharged from a renal standpoint. Dr Montague will follow up with him in the office next week. Discussed with Dr Montague. Procedures Date of Service Date of Service: 04/23/25
--- NOTE | 2025-04-23 14:01 | P.DS_ITS ---
DS: Providers Provider Date of Service: 04/23/25 Date of admission: 04/22/25 18:52 Date of discharge: 04/23/25 Primary care physician: Jeff Vale MD DS: Diagnosis Discharge Diagnosis (1) Hypertensive urgency: Status: Acute (2) CKD stage 3b, GFR 30-44 ml/min: Status: Acute DS: Summary Hospital Course Hospital Course: Sangeeta Lopez is a 44 y/o man with a PMHx admitted with hypertensive urgency from his christmas tree farm manager's office with SBP 200/140 over likely because the patient has not been taking any medications which has already been prescribed and refilled for him. Hypertensive urgency, resolved with re-initiation of his oral home antihypertensive meds. He has had multiple admissions in the past-[facility]. Patient has clearly endorse that he does not take meds. There is a huge concern about medication compliance as when reinitiating his oral antihypertensive home meds, despite holding his losartan and spironolactone, his blood pressure re sponded to 120s. Initially when he presented his blood pressure was SBP 200s, and required 2 pushes of labetalol IV, however the a.m. of his discharge with the very next day, after we re-initiated his home antihypertensive meds- carvedilol 12.5 p.o. b.i.d. (increased his home carvedilol dose), hydralazine 25 mg p.o. t.i.d., amlodipine 10 mg (increased to 10 mg from home 5 [address] CT and MRI were done which revealed several ill-defined areas of decreased density which is more pronounced in the right frontal lobe which was determined to be artifactual and technically indeterminate. Hence we did an MRI - Periventricular and subcortical white matter hyperintensities which are nonspecific, but greater than expected for patient of this age. We discontinued his spironolactone as his GFR was less than 30 and also held his furosemide. Losartan was discontinued in the past given his CKD, patient educated by Nephrology as well about medication compliance. Social work consulted Spoke to his christmas tree farm manager who is going to follow-up next week for medication titration. His medications at the time of discharge are carvedilol 12.5 p.o. b.i.d. Hydralazine 25 mg p.o. t.i.d. Amlodipine 10 mg p.o. OD Discontinued losartan and spironolactone given worsening CKD in the setting of hypertensive nephropathy Renal cyst Patient has an 8 mm left upper pole renal cyst. Needs to follow up with PCP Acute on chronic kidney disease due to hypertensive nephropathy with recent history of cardiorenal syndrome (per nephrology notes last hospitalization creatinine was 1.6 at discharge) + proteinuria; concern for infiltrative disease due to underlying CHF, however, normal LFTs: JAY test, LDH, SPEP, UPEP, cardiac MRI, ferritin, transferrin and EPHRAIM. Low K diet. Hold spironolactone or furosemide. NS 1 L bolus given in ED. Check hemoglobin A1c, lipid panel and total CK. To consider cardiac MRI. Headache, resolved. Head CT scan showed several ill-defined areas of increased parenchymal deficit more prominent in the right frontal lobe. HFrEF (35%). Continued carvedilol and Farxiga. Hold furosemide for now due to above. No evidence of acute CHF. Obstructive sleep apnea. Continue Nocturnal CPAP. Morbid obesity, BMI 41.8 kg/m2. Encouraged to lose weight and daily exercise. He is a candidate for GLP 1. Patient is a high-risk for readmission due to medication noncompliance This note is constructed using voice recognition software. While every effort has been made to ensure accuracy, equipment application specialist errors may have been included. Time Attestation Total time managing care of this patient today: 35 mintues. Discharge Coordination Time (in mins): 35 Quality: Safe Use of Opioids Does Pt have an Active Cancer Diagnosis on the Problem List?: No Quality: Stroke Does the patient have a stroke diagnosis?: No Physical Exam Vital Signs: Vital Signs: Last Vital Signs Temp 97.8 F 04/23/25 10:05 Pulse 71 04/23/25 10:05 Resp 16 04/23/25 10:05 BP 127/76 04/23/25 10:05 Pulse Ox 96 04/23/25 10:05 O2 Del Method Room Air 04/23/25 10:05 BMI result Body Mass Index 41.7 Patient was using a BiPAP at the time of my examination Patient was able to answer some of my questions Const: General: no acute distress, alert and awake Resp: Effort & Inspection: normal respiratory effort and able to speak in complete sentences Auscultation: clear to auscultation bilaterally Cardio: Rate: regular rate Rhythm: regular rhythm Heart sounds: S1 normal heart sound present and S2 normal heart sound present GI: Palpation (GI): Soft to palpation and nontender : General: Yes no CVA tenderness Back/Spine/Pelvis: Back: no CVA tenderness Skin: Rashes: no rashes Extrem: General: No edema DS: Data Data Completed and Pending Labs on day of discharge: Laboratory Results - last 24 hr 04/22/25 04/22/25 04/22/25 16:27 16:28 17:11 WBC 7.0 RBC 5.97 H Hgb 15.2 Hct 46.7 MCV 78.2 L MCH 25.5 L MCHC 32.5 RDW 14.7 Plt Count 232 MPV 10.6 Immature Gran % (Auto) 0.1 Neut % (Auto) 58.7 Lymph % (Auto) 29.3 [place] % (Auto) 8.2 Eos % (Auto) 3.1 Baso % (Auto) 0.6 Lymph # (Auto) 2.1 [place] # (Auto) 0.6 Eos # (Auto) 0.2 Baso # (Auto) 0.0 Abs Immat Gran (auto) 0.01 Absolute Neuts (auto) 4.1 Absolute Nucleated RBC 0.000 Nucleated RBC % (auto) 0.0 Sodium 137 Potassium 4.2 Chloride 109 H Carbon Dioxide 21 L Anion Gap 11 L BUN 31 H Creatinine 2.51 H Estim Creat Clear Calc 56.9 Estimated GFR 28 Random Glucose 83 Fasting Glucose Estimat Average Glucose Hemoglobin A1c % Calcium 8.7 Phosphorus Magnesium 2.4 Ferritin Total Bilirubin 0.5 Direct Bilirubin 0.1 AST 29 ALT 23 Alkaline Phosphatase 76 Lactate Dehydrogenase Total Creatine Kinase 298 H Troponin I High Sens 19.9 Total Protein 7.6 Albumin 3.6 Triglycerides Cholesterol LDL Cholesterol, Calc HDL Cholesterol TSH Urine Color Urine Appearance Urine pH Ur Specific Elsie Urine Protein Urine Glucose (UA) Urine Ketones Urine Blood Urine Nitrite Ur Leukocyte Esterase Urine RBC Urine WBC Ur Squamous Epith Cells Urine Bacteria Hyaline Casts Urine Opiates Screen Ur Buprenorphine Scrn Ur Oxycodone Screen Urine Methadone Screen Urine Fentanyl Screen Ur Barbiturates Screen Ur Phencyclidine Scrn Ur Amphetamines Screen U Benzodiazepines Scrn Urine Cocaine Screen U Marijuana (THC) Screen Influenza Type A (PCR) NEGATIVE Influenza Type B (PCR) NEGATIVE RSV RNA Qual (PCR) NEGATIVE SARS-CoV-2 RNA (RT-PCR) NEGATIVE 04/22/25 04/22/25 04/23/25 17:49 21:57 06:01 WBC 7.0 RBC 6.11 H Hgb 15.4 Hct 48.1 MCV 78.7 L MCH 25.2 L MCHC 32.0 RDW 15.1 Plt Count 234 MPV 10.4 Immature Gran % (Auto) 0.4 Neut % (Auto) 52.1 Lymph % (Auto) 34.9 [place] % (Auto) 8.1 Eos % (Auto) 3.8 Baso % (Auto) 0.7 Lymph # (Auto) 2.5 [place] # (Auto) 0.6 Eos # (Auto) 0.3 Baso # (Auto) 0.1 Abs Immat Gran (auto) 0.03 Absolute Neuts (auto) 3.7 Absolute Nucleated RBC 0.000 Nucleated RBC % (auto) 0.0 Sodium 138 Potassium 3.2 L D Chloride 105 Carbon Dioxide 25 Anion Gap 11 L BUN 28 H Creatinine 2.09 H Estim Creat Clear Calc 68.3 Estimated GFR 35 Random Glucose 92 Fasting Glucose Estimat Average Glucose 108 Hemoglobin A1c % 5.4 Calcium 8.4 Phosphorus 3.7 Magnesium 2.2 Ferritin 121 Total Bilirubin Direct Bilirubin AST ALT Alkaline Phosphatase Lactate Dehydrogenase 155 Total Creatine Kinase Troponin I High Sens Total Protein Albumin Triglycerides 140 Cholesterol 209 H LDL Cholesterol, Calc 152 H HDL Cholesterol 29 L TSH 1.42 Urine Color Yellow Urine Appearance Clear Urine pH 5.5 Ur Specific Elsie 1.025 Urine Protein 300 (3+) H Urine Glucose (UA) Negative Urine Ketones Trace Urine Blood Trace H Urine Nitrite Negative Ur Leukocyte Esterase Negative Urine RBC 0-2 Urine WBC 0-5 Ur Squamous Epith Cells 0-2 Urine Bacteria None Seen Hyaline Casts 3-5 Urine Opiates Screen POSITIVE H Ur Buprenorphine Scrn Not Detected Ur Oxycodone Screen Not Detected Urine Methadone Screen Not Detected Urine Fentanyl Screen Not Detected Ur Barbiturates Screen Not Detected Ur Phencyclidine Scrn Not Detected Ur Amphetamines Screen Not Detected U Benzodiazepines Scrn Not Detected Urine Cocaine Screen Not Detected U Marijuana (THC) Screen POSITIVE H Influenza Type A (PCR) Influenza Type B (PCR) RSV RNA Qual (PCR) SARS-CoV-2 RNA (RT-PCR) 04/23/25 13:15 WBC RBC Hgb Hct MCV MCH MCHC RDW Plt Count MPV Immature Gran % (Auto) Neut % (Auto) Lymph % (Auto) [place] % (Auto) Eos % (Auto) Baso % (Auto) Lymph # (Auto) [place] # (Auto) Eos # (Auto) Baso # (Auto) Abs Immat Gran (auto) Absolute Neuts (auto) Absolute Nucleated RBC Nucleated RBC % (auto) Sodium 139 Potassium 3.7 Chloride 105 Carbon Dioxide 27 Anion Gap 11 L BUN 27 H Creatinine 2.22 H Estim Creat Clear Calc 64.3 Estimated GFR 32 Random Glucose Fasting Glucose 104 H Estimat Average Glucose Hemoglobin A1c % Calcium 8.7 Phosphorus Magnesium Ferritin Total Bilirubin Direct Bilirubin AST ALT Alkaline Phosphatase Lactate Dehydrogenase Total Creatine Kinase Troponin I High Sens Total Protein Albumin Triglycerides Cholesterol LDL Cholesterol, Calc HDL Cholesterol TSH Urine Color Urine Appearance Urine pH Ur Specific Elsie Urine Protein Urine Glucose (UA) Urine Ketones Urine Blood Urine Nitrite Ur Leukocyte Esterase Urine RBC Urine WBC Ur Squamous Epith Cells Urine Bacteria Hyaline Casts Urine Opiates Screen Ur Buprenorphine Scrn Ur Oxycodone Screen Urine Methadone Screen Urine Fentanyl Screen Ur Barbiturates Screen Ur Phencyclidine Scrn Ur Amphetamines Screen U Benzodiazepines Scrn Urine Cocaine Screen U Marijuana (THC) Screen Influenza Type A (PCR) Influenza Type B (PCR) RSV RNA Qual (PCR) SARS-CoV-2 RNA (RT-PCR) Discharge Plan Discharge Anticipated Discharge Date/Time: 04/23/25 15:00 Patient Disposition: Home, Self-Care Discharge Diagnosis: Noncompliance with HTN meds causing HTN urgency Referrals: Jeff Vale MD [Primary Care Provider, Internal Medicine] - 1 Week Discharge Medications: Continued labetalol 200 mg tablet 200 mg PO BID amlodipine 5 mg tablet 10 mg PO DAILY dapagliflozin propanediol [Farxiga] 10 mg tablet 10 mg PO DAILY furosemide 20 mg tablet 20 mg PO DAILY isosorbide mononitrate 30 mg tablet extended release 24 hr 60 mg PO DAILY hydralazine 25 mg tablet 25 mg PO TID Changed carvedilol 6.25 mg tablet 12.5 mg PO BID Qty: 60 4RF Discontinued spironolactone 25 mg tablet 25 mg PO DAILY Discharge Orders: Discharge Order (Routine); Ordered 04/23/25 Ordered By: Laina Cunningham Diet: Diabetic diet Activity on Discharge: As tolerated Stand Alone Forms: Patient Portal Discharge page, Community Support Print Language: Indonesian Care Plan Goals: Patient needs education about medication adherence The only reason this patient came to the ED was because he was not compliant with his antihypertensive medications which caused his blood pressure to be in the 200s. Patient educated about medication compliance, unsure if he is able to follow through. Social work consulted Reached out to his christmas tree farm manager Dr. Jamin Montague to set up a follow-up appointment next week Health Concerns: Patient needs education about medication adherence The only reason this patient came to the ED was because he was not compliant with his antihypertensive medications which caused his blood pressure to be in the 200s. Patient educated about medication compliance, unsure if he is able to follow through. Social work consulted Reached out to his christmas tree farm manager Dr. Jamin Montague to set up a follow-up appointment next week Plan of Treatment: Patient needs education about medication adherence The only reason this patient came to the ED was because he was not compliant with his antihypertensive medications which caused his blood pressure to be in the 200s. Patient educated about medication compliance, unsure if he is able to follow through. Social work consulted Reached out to his christmas tree farm manager Dr. Jamin Montague to set up a follow-up appointment next week Assessment: Patient needs education about medication adherence The only reason this patient came to the ED was because he was not compliant w ith his antihypertensive medications which caused his blood pressure to be in the 200s. Patient educated about medication compliance, unsure if he is able to follow through. Social work consulted Reached out to his christmas tree farm manager Dr. Jamin Montague to set up a follow-up appointment next week
--- NOTE | 2025-04-23 14:26 | PC.NURSE ---
Patient away for MRI, escorted in wheelchair with MRI staff. Spoke with Dr. Cunningham regarding newly placed discharge orders. Dr. Cunningham stated I'll wait for his MRI result. It's likely an artifact. Several ill-defined areas of decreased density bilaterally most pronounced right frontal lobe superiorly may be artifactual but are technically indeterminate. Consider further evaluation with MR or short-term follow-up. I spoke to his attorney general who said he'll arrange OP [outpatient] follow up. Plan to await MRI results prior to discharging home. Will continue [place] [facility] [place] Spoke with devulcanizer charger (Yuli Kyle) regarding this as well.
--- NOTE | 2025-04-23 15:23 | MHC.CM.PN ---
Met with patient in regards to discharge planning. Patient lives alone, ambulates independently and had no services prior to coming to the hospital. No services anticipated to be needed because patient is not home bound. PCP verified. Patient believes he has a HCP at [place]. T/W will attempt to obtain a copy. Patient will transport himself home with his vehicle that is in the hospital parking lot. Continue to monitor for d/c needs.
[2025-04-26 11:13] LABS: Kappa/Lambda Lt Ch Free Ratio 1.45 (0.26-1.65)
[2025-04-26 14:43] LABS: Transferrin 202 mg/dL (188-341)
[2025-04-26 21:04] LABS: Prot Elec - Albumin 3.6 g/dL (3.8-4.8); Prot Elec - Alpha1 0.3 g/dL (0.2-0.3); Prot Elec - Alpha2 0.7 g/dL (0.5-0.9); Prot Elec - Beta 1 0.5 g/dL (0.4-0.6); Prot Elec - Beta 2 0.4 g/dL (0.2-0.5); Prot Elec - Gamma 1.5 g/dL (0.8-1.7); Prot Elec - Total Protein 6.9 g/dL (6.1-8.1)
[2025-04-27 11:09] LABS: PEU-Protein Creat Ratio Rand 1.120 (0.025-0.148); PEU-Rand. Prot/Creat Ratio 1120 mg/g creat (25-148); PEU-Random Ur. Gamma Globulin 10 %; PEU-Random Urine A1 Globulin 6 %; PEU-Random Urine A2 Globulin 6 %; PEU-Random Urine Albumin 70 %; PEU-Random Urine Beta Globulin 9 %; PEU-Random Urine Creatinine 50 mg/dL (20-320); PEU-Random Urine Protein 56 mg/dL (5-25)
[2025-04-27 13:29] LABS: Anti Nuclear Antibody Screen NEGATIVE (NEGATIVE)
[2025-04-28 06:53] LABS: Free Kappa Lt Chains,Ur 110.79 mg/L (<=32.90); Free Lambda Lt Chains,Ur 20.53 mg/L (<=3.79); Kappa/Lambda Ratio,U 5.40 (<=8.69)
== END 2025-04-23 16:18 | disposition home or self-care (01) | DRG 199 ==
LOC: HO.ED 18:34 → HO.EDOVER 20:30 → HO.S3 04-23 08:56 → HO.EDOVER 04-23 09:18
PROVIDERS: Physician Assistant Medical; Admitting Provider Internal Medicine; Emergency Provider Emergency Medicine; PCP Internal Medicine; Visit Provider Student in an Organized Health Care Education/Training Program
DX: I16.1 Hypertensive emergency (principal); N17.9 Acute kidney failure, unspecified; I50.22 Chronic systolic (congestive) heart failure; N18.31 Chronic kidney disease, stage 3a; I13.0 Hypertensive heart and chronic kidney disease with heart failure and stage 1 through stage 4 chronic kidney disease, or unspecified chronic kidney disease; N28.1 Cyst of kidney, acquired; T38.3X6A Underdosing of insulin and oral hypoglycemic [antidiabetic] drugs, initial encounter; T46.3X6A Underdosing of coronary vasodilators, initial encounter; E66.01 Morbid (severe) obesity due to excess calories; Z68.41 Body mass index [BMI] 40.0-44.9, adult; Z71.3 Dietary counseling and surveillance; G47.33 Obstructive sleep apnea (adult) (pediatric); Z87.891 Personal history of nicotine dependence; Z20.822 Contact with and (suspected) exposure to COVID-19; Z79.899 Other long term (current) drug therapy
CPT/HCPCS: 36415; 70450; 70551; 76775; 80048; 80061; 80076; 80307; 81001; 82164; 82550; 82570; 82728; 83036; 83521; 83615; 83735; 84100; 84156; 84165; 84166; 84443; 84466; 84484; 85025; 86038; 87637; 93005; 93306; 94660; 99222; 99285; J1920; J2270; Q9957

== ENCOUNTER → 2025-04-22 16:02 | Outpatient (BNV) | payer OTHER, SELFPAY | PROVIDERS: Admitting Provider Internal Medicine; Emergency Provider Emergency Medicine; PCP Internal Medicine; Visit Provider Internal Medicine Cardiovascular Disease | DX: I45.10 Unspecified right bundle-branch block (principal) | CPT/HCPCS: 93010 ==

== ENCOUNTER → 2025-04-22 16:46 | Outpatient (BNV) | payer OTHER, SELFPAY | PROVIDERS: Emergency Provider Emergency Medicine; PCP Internal Medicine; Visit Provider Radiology Diagnostic Radiology | DX: N28.1 Cyst of kidney, acquired (principal) | CPT/HCPCS: 70450; 76775 ==

== ENCOUNTER 2025-04-22 18:52 | Outpatient (BNV) | payer OTHER, SELFPAY | END 2025-04-23 07:00 | PROVIDERS: Admitting Provider Internal Medicine; Emergency Provider Emergency Medicine; PCP Internal Medicine; Visit Provider Internal Medicine Cardiovascular Disease | DX: I51.7 Cardiomegaly (principal); I51.89 Other ill-defined heart diseases | CPT/HCPCS: 93306 ==

== ENCOUNTER 2025-04-22 18:52 | Outpatient (BNV) | payer OTHER, SELFPAY | END 2025-04-23 07:00 | PROVIDERS: Admitting Provider Internal Medicine; Emergency Provider Emergency Medicine; PCP Internal Medicine; Visit Provider Radiology Diagnostic Radiology | DX: R90.82 White matter disease, unspecified (principal) | CPT/HCPCS: 70551 ==

== ENCOUNTER → 2025-04-22 18:52 | Outpatient (BNV) | payer OTHER, SELFPAY | PROVIDERS: Admitting Provider Internal Medicine; Emergency Provider Emergency Medicine; PCP Internal Medicine; Visit Provider Nurse Practitioner Family | DX: I16.0 Hypertensive urgency (principal); N18.32 Chronic kidney disease, stage 3b | CPT/HCPCS: 99221 ==

== ENCOUNTER → 2025-04-22 18:52 | Outpatient (BNV) | payer OTHER, SELFPAY | PROVIDERS: Admitting Provider Internal Medicine; Emergency Provider Emergency Medicine; PCP Internal Medicine; Visit Provider Internal Medicine | DX: I16.0 Hypertensive urgency (principal); N18.31 Chronic kidney disease, stage 3a | CPT/HCPCS: 99223 ==

== ENCOUNTER 2025-04-29 15:08 | Outpatient (AMB) | payer OTHER, SELFPAY ==
--- NOTE | 2025-04-29 15:45 | HO.NEPHOV ---
Vital Signs 04/29/25 15:47 Height 6 ft 2 in Weight 186 lb 8 oz BMI 23.9 BP 150/98 H Blood Pressure Location Rt brachial Position Sitting Pulse 81 Pulse Source Pulse Oximeter Pulse Oximetry (%) 96 Oxygen Delivery Method Room Air Intake Visit Reasons: 1wk follow-up Tack Driller Required: No Accompanied by: Self / Same As Patient Allergies No Known Allergies Allergy (Verified 04/29/25 15:46) HPI Comments Details: Sangeeta Loepz is a 44 y/o man with CKD 3 and hypertension who recently had a hospitalization for hypertensive urgency with SBP 200/140. His hypertensive urgency, resolved with re-initiation of his oral home antihypertensive meds. He has had multiple admissions in the past ([facility] and [facility] There had been a huge concern about medication compliance. CT and MRI were done during hospitalization . CT revealed several ill-defined areas of decreased density which is more pronounced in the right frontal lobe which was determined to be artifactual and technically indeterminate. MRI showed periventricular and subcortical white matter hyperintensities which are nonspecific, but greater than expected for patient of this age. His spironolactone and furosemide were held during recent hospitalization. He has H/O renal cyst(8 mm left upper pole renal cyst). His acute on chronic kidney disease due to hypertensive nephropathy with history of cardiorenal syndrome + proteinuria was concerning for infiltrative disease. He has HFrEF (35%).He has MARANDA and needs to continue Nocturnal CPAP. He is a candidate for GLP 1 given his co morbidities. He claims to be not tolerating drop in BP forcing him to skip medications. [facility] Medical History Pre-diabetes Hypertriglyceridemia MARANDA (obstructive sleep apnea) Morbid obesity Surgical History History of ankle surgery Family History Mother Thyroid disease Maternal Grandmother Diabetes Hypertension Kidney disease Social History Alcohol intake: never Patient Tobacco Use Status: Former Tobacco user Substance Use Type: Marijuana service: No Physical Exam Vital Signs: Last Vital Signs Pulse 81 04/29/25 15:47 BP 150/98 H 04/29/25 15:47 Pulse Ox 96 04/29/25 15:47 Oxygen Delivery Method Room Air 04/29/25 15:47 BMI result Body Mass Index 23.9 Results Reviewed Nephrology Results: Hgb, (14.0-18.0) 15.4 g/dl 04/23/25 WBC, (4.8-10.8) 7.0 X10*3/uL 04/23/25 Plt Count, (160-400) 234 X10*3/uL 04/23/25 Sodium, (135-145) 139 mmol/L 04/23/25 Potassium, (3.3-5.1) 3.7 mmol/L 04/23/25 Chloride, (96-108) 105 mmol/L 04/23/25 Carbon Dioxide, (22-29) 27 mmol/L 04/23/25 BUN, (9-16) 27 mg/dL H 04/23/25 Creatinine, (0.5-1.4) 2.22 mg/dL H 04/23/25 Calcium, (8.4-10.2) 8.7 mg/dL 04/23/25 Phosphorus, (2.7-4.5) 3.7 mg/dL 04/23/25 Urine Protein, (Neg-Trace) 300 (3+) mg/dL H 04/22/25 Protein/Creatinin Ratio, (25-148) 1120 mg/g creat H 04/23/25 Renal US 04/22/25 Assessment & Plan Assessment & Plan (1) Hypertension: Code(s): I10 - Essential (primary) hypertension Category: Medical Qualifiers: Hypertension type: primary hypertension Qualified Code(s): I10 - Essential (primary) hypertension (2) CKD stage 3b, GFR 30-44 ml/min: Code(s): N18.32 - Chronic kidney disease, stage 3b Category: Medical Plan Chad has baseline CKD stage 3 from hypertensive nephropathy. He has history of systolic heart failure. His recent ejection fraction was 35%. He recently had NORY on CKD due to cardiorenal syndrome. He has proteinuria. He needs to lose weight, keep up with a low-sodium diet, be compliant with his medications as well as CPAP. We need to rule out any infiltrative myocardial disease given systolic dysfunction as well as CKD. He recently had hospital visits for systolic BP over 200 and has not made progress in office management of his BP due to compliance issues. I asked him to continue current medications for now and bring his medications for review. He will be a great candidate for GLP agonist. All these have been explained in detail to patient. Further management is pending evolving data Coding Level of Care Code Est Pt Level 4 (89712) Diagnoses Primary hypertension I10 Hypertension type: primary hypertension CKD stage 3b, GFR 30-44 ml/min N18.32
[2025-04-29 15:47] VITALS: BP 150/98; PULSE 81; O2SAT 96; BMI 23.9
--- OUTSIDE RECORDS SUMMARY | 2025-04-29 15:52 | XMS_ITS | Clinical Summary ---
Author Organization [facility] [address] [facility] Building Address [address] [place] [address] Phone Care Team Providers Care Director Of Revenue Cycle Management Name Role Phone Jeff Vale MD Primary Care Provider [phone] Allergies Active Allergy Reactions Criticality Noted Date [...] Diagnosed Date Stage 3 chronic kidney disease ([facility] V24, [facility] V28) 01/05/2025 Assessment & Plan (01/05/2025 1:00 PM EDT): He is followed by Dr. Jennings of the nephrology service. Recent blood tests were completed at [facility]. A note will be sent to his supervisor jewelry department regarding his condition. He sees Dr. Montague later this week. Consideration should be given to starting Entresto with close monitoring of renal parameters. Acute systolic CHF (congesti ve heart failure) ([facility] V24, [facility] V28) 12/31/2024 Assessment & Plan (01/05/2025 1:00 [...] A note will be sent to his supervisor jewelry department and primary care physician regarding his condition. Orders: Transthoracic echocardiogram (TTE) complete with PRN contrast, bubble, strain, and 3D order panel; Future Morbid obesity (CMS/HCC V24, CMS/HCC V28) 2024 Assessment & Plan (01/05/2025 1:00 PM EDT): MARANDA (obstructive sleep apnea) 12/03/2024 Assessment & Plan (01/05/2025 1:00 PM EDT): He was informed that replacement parts for his CPAP machine can be purchased on [employer]. He was advised to contact [facility] for further assistance with his CPAP machine. Hypertriglyceridemia 12/03/2024 Pre-diabetes 12/03/2024 Assessment & Plan (01/05/2025 1:00 PM EDT): Encounters Date Type Department Care Team Description 03/24/2025 3:02 PM EDT Anesthesia Event [facility] Endoscopy [address] [place] [phone] Troy Royal MD 03/24/2025 2:04 PM EDT - 03/24/2025 11:59 PM EDT Hospital Encounter [facility] Endoscopy [address] [place] [phone] Bal Galaviz DO Pierce, Trudy A, CRNA Dasilva, John E, MD Colon cancer screening Discharge Disposition: Home or Self Care 02/12/2025 11:28 AM EDT - 02/12/2025 11:59 PM EDT Hospital Encounter CT Scan - [address] [phone] Seizure disorder, focal motor (CMS/HCC V24, CMS/HCC V28) Discharge Disposition: Home or Self Care 02/11/2025 11:30 AM EDT Office Visit Internal Medicine - [place] [address] [place] [phone] Jeff Vale MD Seizure disorder, focal motor (CMS/HCC V24, CMS/HCC V28) (Primary Dx); Acute systolic congestive heart failure (CMS/HCC V24, [facility] V28); NORY (acute kidney injury) ([facility] V24); Morbid obesity ([facility] V24, [facility] V28) 02/11/2025 Telephone Internal Medicine - [address] [place] [address] Karma Salomon RN Seizures from Last 3 Months Immunizations Name Administration Dates Next Due Tdap Tetanus diptheria acell ular pertussis (Boostrix; Adacel) 7yo and older 06/02/2014 Surgical History Surgery Date Site/Laterality Comments OTHER SURGICAL HISTORY 1994 PROCEDURE: ---- OTHER ----; COMMENT: Right tib/fib Medical History Medical History Date Comments Morbid obesity ([facility] V24, [facility] V28) 04/28/2014 DX:Morbid obesity ([facility]) MARANDA (obstructive sleep apnea) 05/11/2014 DX :MARANDA (obstructive sleep apnea); COMMENT: Sleep study - 05/08/14 - severe degree of sleep apnea, relieved with the use of nasal CPAP; CPAP 12 cm H2O recommended Chronic kidney disease, stag e 3 ([facility] V24, [facility] V28) Sepsis ([facility] V24, [facility] V28) secondary to acute bilateral tonsillitis Dysphagia Acute hypoxic respiratory fa ilure ([facility] V24, [facility] V28) Hypertension Family History Medical History Relation [...] Description 06/07/2025 10:00 AM EDT Ancillary Procedure [facility] Cardiology [facility] [address] [place] [address] 07/21/2025 10:10 AM EDT Office Visit [facility] [address] [place] [address] [address] [place] [address] Deep Albrecht NP [address] [place] [address] [address] [place] [address] 08/05/2025 11:00 AM EDT Consult Bariatric Surgery - [place] [address] [place] [phone] Saundra Gonzalez MD [address] [facility] [address] [place] [address] Health Maintenance Due Date Last Done Comments COVID-19 Vaccine (#1) 1984 Hepatitis B Vaccines (1 of 3 - 19+ 3-dose series) 1998 DTaP,Tdap,and Td Vaccines (2 - Td or Tdap) 06/02/2024 06/02/2014 Depression Screening 10/14/2024 Cholesterol Screening (Lipid Panel) 12/02/2024 04/17/2016 Social Influencers of Health Screening 12/02/2024 Hypertension/CHF/CAD [...] pathology results. Narrative 03/24/2025 3:27 PM EDT [facility] GI Patient Name: Zackary Lopez Procedure Date: 03/24/2025 3:05 PM Date of : 1980 Age: 44 Gender: Male Note Status: Finalized Attending MD: Bal Galaviz DO, [id number] Procedure Date No Time: 03/24/2025 Procedure: Colonoscopy [...] the physician, the nurse, the anesthesiologist, the export freight clerk and the fire protection engineering technician in the pre-procedure area in the [...] retroflexion views. Procedure Code(s): --- Professional --- 35786, Colonoscopy, flexible; with removal of tumor(s), polyp(s), or other lesion(s) by snare technique Diagnosis Code(s): --- Professional --- Z12.11, Encounter for screening for malignant neoplasm of colon K64.9, Unspecified hemorrhoids D12.4, Benign neoplasm of descending colon D12.3, Benign neoplasm of transverse colon (hepatic flexure or splenic flexure) CPT copyright 2020 [employer]. All rights reserved. The codes documented in this report are preliminary and upon cabin cleaner review may be revised to meet current compliance requirements. BAL Galaviz DO 03/24/2025 3:27:19 PM This report has been signed electronically.Bal Galaviz DO Number of Addenda: 0 Note Initiated On: 03/24/2025 3:05 PM Scope Withdrawal Time: 0 hours 12 minutes 41 seconds Scope In: 3:10:36 PM Scope Out: 3:24:50 PM Endoscopy Department at [facility] - [address] [place] [phone] Procedure Note Bal Galaviz DO - 03/24/2025 [facility] GI Patient Name: Zackary Lopez Procedure Date: 03/24/2025 3:05 PM Date of : 1980 Age: 44 Gender: Male Note Status: Finalized Attending MD: Bal Galaviz DO, [id number] Procedure Date No Time: 03/24/2025 Procedure: Colonoscopy [...] the physician, the nurse, the anesthesiologist, the export freight clerk and thetechnician in the pre-procedure area in [...] retroflexion views. Procedure Code(s): --- Professional --- 84411, Colonoscopy, flexible; with removal of tumor(s), polyp(s), or other lesion(s) by snare technique Diagnosis Code(s): --- Professional --- Z12.11, Encounter for screening for malignantneoplasm of colon K64.9, Unspecified hemorrhoids D12.4, Benign neoplasm of descending colon D12.3, Benign neoplasm of transverse colon (hepatic flexure or splenic flexure) CPT copyright 2020 [employer]. All rights reserved. The codes documented in this report are preliminary and upon cabin cleaner reviewmay be revised to meet current compliance requirements. BAL Galaviz DO 03/24/2025 3:27:19 PM This report has been signed electronically.Bal Galaviz DO Number of Addenda: 0 Note Initiated On: 03/24/2025 3:05 PM Scope Withdrawal Time: 0 hours 12 minutes 41 seconds Scope In: 3:10:36 PM Scope Out: 3:24:50 PM Endoscopy Department at [facility] - [address] [place] [phone] IMPRESSION: - Hemorrhoids found on perianal exam. [...] Multiple levels evaluated. 03/29/2025 2:35 PM EDT [facility] Gross Description A. Large Intestine, [...] multiple levels. hs/DG 03/29/2025 2:35 PM EDT [facility] Disclaimer Unless otherwise specified, all tissue is 10% NB formalin fixed and paraffin embedded. 03/29/2025 2:35 PM EDT [facility] Tissue Transverse colon structure / Unknown 03/24/2025 3:19 PM EDT 03/24/2025 4:12 PM EDT Tissue specimen (specimen) Descending colon structure / Unknown 03/24/2025 3:21 PM EDT 03/24/2025 4:12 PM EDT Bal Galaviz DO LAB PATHOLOGY ORDERABLES Final R esult [facility] [address] [place] [address], * CT Head wo Contrast (02/12/2025 11:41 [...] Signed Date: 02/12/2025 12:20 ET Workstation ID: [id number] Transcribed By: Self Edit Transcribed Date: 02/12/2025 [...] Signed Date: 02/12/2025 12:20 ET Workstation ID: [id number] Transcribed By: Self Edit Transcribed Date: 02/12/2025 12:15 ET Result [facility] Jeff Vale MD IMG CT PROCEDURES Final Result * (ABNORMAL) Lipid panel (04/17/2016) [facility] LDL/HDL Ratio 5(A) 0 - 4 Triglycerides 112 0 - 150 mg/dL Cholesterol 200 0 - 200 mg/dL HDL 39(A) >=40 mg/dL LDL Cholesterol 139(A) 0 - 100 mg/dL Blood Venous blood specimen / Unknown Result [facility] LAB BLOOD ORDERABLES Elisabet l Result * HIV Screening (06/02/2014) [facility] HIV Screening Abstracted Result [facility] [employer] Final Result * Hepatitis C Screening (06/02/2014) [facility] Hepatitis C Screening Abstracted Result [facility] [employer] Final Result * Annual BMP Blood Test (04/28/2014) [facility] Annual BMP Blood Test Abstracted Result [facility] [employer] Final Result from Last 3 Months or Most Recently Relevant to Health Maintenance Insurance [facility] [employer] Care Teams Director Of Revenue Cycle Management Relationship Specialty Start Date End Date Jeff Vale MD [address] [facility] [address] [place] [address] PCP - General Internal Medicine 12/02/24
--- OUTSIDE RECORDS SUMMARY | 2025-04-29 15:52 | XMS_ITS | Clinical Summary ---
Author Organization [facility] Address [address] [address] Phone Care Team Providers Care Hostess Party Sales Representative Name Role Phone Jose Etienne Reid DO [...] PCV) 1998 Influenza Vaccine (#1) 2025 Insurance [facility] Medicaid Care Teams Hostess Party Sales Representative Relationship Specialty Start Date End Date Etienne Wharton DO [address] [facility] [address] [place] [phone] PCP - General Internal Medicine 03/01/21
== END 2025-04-29 16:12 | disposition home or self-care (01) ==
LOC: HO.HKAS 15:09
PROVIDERS: PCP Internal Medicine; Visit Provider Internal Medicine Nephrology
DX: I10 Essential (primary) hypertension (principal); N18.32 Chronic kidney disease, stage 3b
CPT/HCPCS: 99214

== ENCOUNTER → 2025-04-29 15:08 | Outpatient (BNVA) | payer OTHER, SELFPAY | PROVIDERS: PCP Internal Medicine; Visit Provider Internal Medicine Nephrology | DX: I11.0 Hypertensive heart disease with heart failure (principal); N18.32 Chronic kidney disease, stage 3b | CPT/HCPCS: 99212 ==

== ENCOUNTER 2025-05-04 09:22 | Outpatient (AMB) | payer OTHER, SELFPAY ==
--- NOTE | 2025-05-04 09:46 | HO.NEPHOV ---
Vital Signs 05/04/25 09:47 Height 6 ft 2 in Weight 323 lb 4 oz BMI 41.5 BP 140/90 H Blood Pressure Location Lt brachial Position Sitting Pulse 86 Pulse Source Pulse Oximeter Pulse Oximetry (%) 96 Oxygen Delivery Method Room Air Intake Visit Reasons: 5 day follow up [employer] Consultant Required: No Accompanied by: Self / Same As Patient Allergies No Known Allergies Allergy (Verified 05/04/25 09:47) HPI Comments Details: Sangeeta Lopez is a 44 y/o man with CKD 3 and hypertension who recently had a hospitalization for hypertensive urgency with SBP 200/140. His hypertensive urgency, resolved with re-initiation of his oral home antihypertensive meds. He has had multiple admissions in the past ([facility] and [facility] There had been a huge concern about medication compliance. CT and MRI were done during hospitalization . CT revealed several ill-defined areas of decreased density which is more pronounced in the right frontal lobe which was determined to be artifactual and technically indeterminate. MRI showed periventricular and subcortical white matter hyperintensities which are nonspecific, but greater than expected for patient of this age. His spironolactone and furosemide were held during recent hospitalization. He has H/O renal cyst(8 mm left upper pole renal cyst). His acute on chronic kidney disease due to hypertensive nephropathy with history of cardiorenal syndrome + proteinuria was concerning for infiltrative disease. He has HFrEF (35%).He has MARANDA and needs to continue Nocturnal CPAP. He is a candidate for GLP 1 given his co morbidities. [facility] Medical History Pre-diabetes Hypertriglyceridemia MARANDA (obstructive sleep apnea) Morbid obesity Surgical History History of ankle surgery Family History Mother Thyroid disease Maternal Grandmother Diabetes Hypertension Kidney disease Social History Alcohol intake: never Patient Tobacco Use Status: Former Tobacco user Substance Use Type: Marijuana service: No Review of Systems Const All systems reviewed & are unremarkable except as noted in HPI and below Physical Exam Const General: comfortable and no acute distress Orientation/consciousness: patient oriented x3 HEENT Head: Yes normocephalic Mouth: Normal oral and palatal mucosa present Eyes EOM: EOMs intact bilaterally Neck Neck: Yes supple Resp Auscultation: clear to auscultation bilaterally Cardio Jugular venous distension: no JVD Rate: regular rate GI Palpation (GI): Soft to palpation Auscultation: normal bowel sounds General: Yes no CVA tenderness Back/Spine/Pelvis Back: no CVA tenderness Skin General skin exam: no rashes or lesions noted Neuro General: patient oriented x3 and moves all extremities Extrem General: Yes no pedal edema Results Reviewed Nephrology Results: Hgb, (14.0-18.0) 15.4 g/dl 04/23/25 WBC, (4.8-10.8) 7.0 X10*3/uL 04/23/25 Plt Count, (160-400) 234 X10*3/uL 04/23/25 Sodium, (135-145) 139 mmol/L 04/23/25 Potassium, (3.3-5.1) 3.7 mmol/L 04/23/25 Chloride, (96-108) 105 mmol/L 04/23/25 Carbon Dioxide, (22-29) 27 mmol/L 04/23/25 BUN, (9-16) 27 mg/dL H 04/23/25 Creatinine, (0.5-1.4) 2.22 mg/dL H 04/23/25 Calcium, (8.4-10.2) 8.7 mg/dL 04/23/25 Phosphorus, (2.7-4.5) 3.7 mg/dL 04/23/25 Urine Protein, (Neg-Trace) 300 (3+) mg/dL H 04/22/25 Protein/Creatinin Ratio, (25-148) 1120 mg/g creat H 04/23/25 Renal US 04/22/25 Assessment & Plan Assessment & Plan (1) Hypertension: Code(s): I10 - Essential (primary) hypertension Category: Medical Qualifiers: Hypertension type: primary hypertension Qualified Code(s): I10 - Essential (primary) hypertension (2) CKD stage 3b, GFR 30-44 ml/min: Code(s): N18.32 - Chronic kidney disease, stage 3b Category: Medical Plan Chad has baseline CKD stage 3 from hypertensive nephropathy. He has history of systolic heart failure. His recent ejection fraction was 35%. He recently had NORY on CKD due to cardiorenal syndrome. He has proteinuria. He needs to lose weight, keep up with a low-sodium diet, be compliant with his medications as well as CPAP. We need to rule out any infiltrative myocardial disease given systolic dysfunction as well as CKD. He recently had hospital visits for systolic BP over 200 and has not made progress in office management of his BP due to compliance issues. I asked him to continue current medications for now and bring his medications for review. He will be a great candidate for GLP agonist. All these have been explained in detail to patient. Further management is pending evolving data Orders: Orders Creatinine 1 Month I10 - Essential (primary) hypertension, N18.32 - Chronic kidney disease, stage 3b Blood Urea Nitrogen 1 Month I10 - Essential (primary) hypertension, N18.32 - Chronic kidney disease, stage 3b Electrolytes 1 Month I10 - Essential (primary) hypertension, N18.32 - Chronic kidney disease, stage 3b Coding Level of Care Code Est Pt Level 4 (01500) Diagnoses Primary hypertension I10 Hypertension type: primary hypertension CKD stage 3b, GFR 30-44 ml/min N18.32
[2025-05-04 09:47] VITALS: BP 140/90; PULSE 86; O2SAT 96; BMI 41.5
--- OUTSIDE RECORDS SUMMARY | 2025-05-04 09:54 | XMS_ITS | Clinical Summary ---
Author Organization [facility] Address [address] [address] Phone Care Team Providers Care Hub Bander Name Role Phone Jose Etienne Reid DO [...] PCV) 1998 Influenza Vaccine (#1) 2025 Insurance [facility] Medicaid Care Teams Hub Bander Relationship Specialty Start Date End Date Etienne Wharton DO [address] [facility] [address] [place] [phone] PCP - General Internal Medicine 03/01/21
--- OUTSIDE RECORDS SUMMARY | 2025-05-04 09:54 | XMS_ITS | Clinical Summary ---
Author Organization [facility] [address] [facility] Building Address [address] [place] [address] Phone Care Team Providers Care Social Media Marketer Name Role Phone Jeff Vale MD Primary Care Provider [phone] Allergies Active Allergy Reactions Criticality Noted Date [...] Diagnosed Date Stage 3 chronic kidney disease ([facility] V24, [facility] V28) 01/05/2025 Assessment & Plan (01/05/2025 1:00 PM EDT): He is followed by Dr. Jennings of the nephrology service. Recent blood tests were completed at [facility]. A note will be sent to his greenskeeper laborer regarding his condition. He sees Dr. Montague later this week. Consideration should be given to starting Entresto with close monitoring of renal parameters. Acute systolic CHF (congesti ve heart failure) ([facility] V24, [facility] V28) 12/31/2024 [...] A note will be sent to his greenskeeper laborer and primary care physician regarding his condition. Orders: Transthoracic echocardiogram (TTE) complete with PRN contrast, bubble, strain, and 3D order panel; Future Morbid obesity (CMS/HCC V24, CMS/HCC V28) 2024 Assessment & Plan (01/05/2025 1:00 PM EDT): MARANDA (obstructive sleep apnea) 12/03/2024 Assessment & Plan (01/05/2025 1:00 PM EDT): He was informed that replacement parts for his CPAP machine can be purchased on [employer]. He was advised to contact [facility] for further assistance with his CPAP machine. Hypertriglyceridemia 12/03/2024 Pre-diabetes 12/03/2024 Assessment & Plan (01/05/2025 1:00 PM EDT): Encounters Date Type Department Care Team Description 03/24/2025 3:02 PM EDT Anesthesia Event [facility] Endoscopy [address] [place] [phone] Troy Royal MD 03/24/2025 2:04 PM EDT - 03/24/2025 11:59 PM EDT Hospital Encounter [facility] Endoscopy [address] [place] [phone] Bal Galaviz DO Pierce, Trudy A, CRNA Dasilva, John E, MD Colon cancer screening Discharge Disposition: Home or Self Care 02/12/2025 11:28 AM EDT - 02/12/2025 11:59 PM EDT Hospital Encounter CT Scan - [address] [address] Seizure disorder, focal motor (CMS/HCC V24, CMS/HCC V28) Discharge Disposition: Home or Self Care 02/11/2025 11:30 AM EDT Office Visit Internal Medicine - [place] [address] [facility] [address] [place] [phone] Jeff Vale MD Seizure disorder, focal motor (CMS/HCC V24, CMS/HCC V28) (Primary Dx); Acute systolic congestive heart failure (CMS/HCC V24, [facility] V28); NORY (acute kidney injury) ([facility] V24); Morbid obesity ([facility] V24, [facility] V28) 02/11/2025 Telephone Internal Medicine - [address] [place] [address] Karma Salomon RN Seizures from Last 3 Months Immunizations Name Administration Dates Next Due Tdap Tetanus diptheria acell ular pertussis (Boostrix; Adacel) 7yo and older 06/02/2014 Surgical History Surgery Date Site/Laterality Comments OTHER SURGICAL HISTORY 1994 PROCEDURE: ---- OTHER ----; COMMENT: Right tib/fib Medical History Medical History Date Comments Morbid obesity ([facility] V24, [facility] V28) 04/28/2014 DX:Morbid obesity ([facility]) MARANDA (obstructive sleep apnea) 05/11/2014 DX :MARANDA (obstructive sleep apnea); COMMENT: Sleep study - 05/08/14 - severe degree of sleep apnea, relieved with the use of nasal CPAP; CPAP 12 cm H2O recommended Chronic kidney disease, stag e 3 ([facility] V24, [facility] V28) Sepsis ([facility] V24, [facility] V28) secondary to acute bilateral tonsillitis Dysphagia Acute hypoxic respiratory fa ilure ([facility] V24, [facility] V28) Hypertension Family History Medical History Relation [...] Description 06/07/2025 10:00 AM EDT Ancillary Procedure [facility] Cardiology [facility] [address] [place] [address] 07/21/2025 10:10 AM EDT Office Visit [facility] - [facility] [address] [place] [address] [address] [place] [address] Deep Albrecht NP [address] [place] [address] [address] [place] [address] 08/05/2025 11:00 AM EDT Consult Bariatric Surgery - [place] [address] [facility] [address] [place] [phone] Saundra Gonzalez MD [address] [facility] [address] [place] [address] Health Maintenance Due Date Last Done Comments [...] 3:[address] [facility] GI Patient Name: Zackary Lopez Procedure Date: 03/24/2025 3:05 PM Date of : 1980 Age: 44 Gender: Male Note Status: Finalized Attending MD: Bal Galaviz DO, [id number] Procedure Date No Time: 03/24/2025 Procedure: Colonoscopy [...] the physician, the nurse, the anesthesiologist, the slide fastener repairer and the final operations technician in the pre-procedure area in the [...] retroflexion views. Procedure Code(s): --- Professional --- 75321, Colonoscopy, flexible; with removal of tumor(s), polyp(s), or other lesion(s) by snare technique Diagnosis Code(s): --- Professional --- Z12.11, Encounter for screening for malignant neoplasm of colon K64.9, Unspecified hemorrhoids D12.4, Benign neoplasm of descending colon D12.3, Benign neoplasm of transverse colon (hepatic flexure or splenic flexure) CPT copyright 2020 [employer]. All rights reserved. The codes documented in this report are preliminary and upon timber inspector review may be revised to meet current compliance requirements. BAL Galaviz DO 03/24/2025 3:27:19 PM This report has been signed electronically.Bal Galaviz DO Number of Addenda: 0 Note Initiated On: 03/24/2025 3:05 PM Scope Withdrawal Time: 0 hours 12 minutes 41 seconds Scope In: 3:10:36 PM Scope Out: 3:24:50 PM Endoscopy Department at [facility] - [address] [place] [phone] Procedure Note Bal Galaviz DO - 03/24/2025 [facility] GI Patient Name: Zackary Lopez Procedure Date: 03/24/2025 3:05 PM Date of : 1980 Age: 44 Gender: Male Note Status: Finalized Attending MD: Bal Galaviz DO, [id number] Procedure Date No Time: 03/24/2025 Procedure: Colonoscopy [...] the physician, the nurse, the anesthesiologist, the slide fastener repairer and thetechnician in the pre-procedure area in [...] retroflexion views. Procedure Code(s): --- Professional --- 98883, Colonoscopy, flexible; with removal of tumor(s), polyp(s), or other lesion(s) by snare technique Diagnosis Code(s): --- Professional --- Z12.11, Encounter for screening for malignantneoplasm of colon K64.9, Unspecified hemorrhoids D12.4, Benign neoplasm of descending colon D12.3, Benign neoplasm of transverse colon (hepatic flexure or splenic flexure) CPT copyright 2020 [employer]. All rights reserved. The codes documented in this report are preliminary and upon timber inspector reviewmay be revised to meet current compliance requirements. BAL Galaviz DO 03/24/2025 3:27:19 PM This report has been signed electronically.Bal Galaviz DO Number of Addenda: 0 Note Initiated On: 03/24/2025 3:05 PM Scope Withdrawal Time: 0 hours 12 minutes 41 seconds Scope In: 3:10:36 PM Scope Out: 3:24:50 PM Endoscopy Department at [facility] - [address] [place] [phone] IMPRESSION: - Hemorrhoids found on perianal exam. [...] Multiple levels evaluated. 03/29/2025 2:35 PM EDT [facility] Gross Description A. Large Intestine, [...] multiple levels. hs/DG 03/29/2025 2:35 PM EDT [facility] Disclaimer Unless otherwise specified, all tissue is 10% NB formalin fixed and paraffin embedded. 03/29/2025 2:35 PM EDT [facility] Tissue Transverse colon structure / Unknown 03/24/2025 3:19 PM EDT 03/24/2025 4:12 PM EDT Tissue specimen (specimen) Descending colon structure / Unknown 03/24/2025 3:21 PM EDT 03/24/2025 4:12 PM EDT Bal Galaviz DO LAB PATHOLOGY ORDERABLES Final R esult [facility] [address] [place] [address], * CT Head wo Contrast (02/12/2025 11:41 [...] Signed Date: 02/12/2025 12:20 ET Workstation ID: [id number] Transcribed By: Self Edit Transcribed Date: 02/12/2025 [...] Signed Date: 02/12/2025 12:20 ET Workstation ID: [id number] Transcribed By: Self Edit Transcribed Date: 02/12/2025 12:15 ET Result [facility] Jeff Vale MD IMG CT PROCEDURES Final Result * (ABNORMAL) Lipid panel (04/17/2016) [facility] LDL/HDL Ratio 5(A) 0 - 4 Triglycerides 112 0 - 150 mg/dL Cholesterol 200 0 - 200 mg/dL HDL 39(A) >=40 mg/dL LDL Cholesterol 139(A) 0 - 100 mg/dL Blood Venous blood specimen / Unknown Result [facility] LAB BLOOD ORDERABLES Elisabet l Result * HIV Screening (06/02/2014) [facility] HIV Screening Abstracted Result [facility] HEALTH MAINTENANCE Final Result * Hepatitis C Screening (06/02/2014) [facility] Hepatitis C Screening Abstracted Result [facility] HEALTH MAINTENANCE Final Result * Annual BMP Blood Test (04/28/2014) [facility] Annual BMP Blood Test Abstracted Result [facility] HEALTH MAINTENANCE Final Result from Last 3 Months or Most Recently Relevant to Health Maintenance Insurance [facility] Care Teams Social Media Marketer Relationship Specialty Start Date End Date Jeff Vale MD [address] [facility] [address] [place] [address] PCP - General Internal Medicine 12/02/24
== END 2025-05-04 10:15 | disposition home or self-care (01) ==
LOC: HO.HKAS 09:23
PROVIDERS: PCP Internal Medicine; Visit Provider Internal Medicine Nephrology
DX: I10 Essential (primary) hypertension (principal); N18.32 Chronic kidney disease, stage 3b
CPT/HCPCS: 99214

== ENCOUNTER → 2025-05-04 09:22 | Outpatient (BNVA) | payer OTHER, SELFPAY | PROVIDERS: PCP Internal Medicine; Visit Provider Internal Medicine Nephrology | DX: N18.32 Chronic kidney disease, stage 3b (principal); I10 Essential (primary) hypertension | CPT/HCPCS: 99212 ==

== ENCOUNTER 2025-06-02 13:38 | Outpatient (REF) | payer OTHER, SELFPAY ==
--- OUTSIDE RECORDS SUMMARY | 2025-06-02 14:33 | XMS_ITS | Clinical Summary ---
Author Organization [address] [facility] Address [address] [place] [address] Phone Care Team Providers Care Wind Science And Planning Name Role Phone Jeff Vale MD Primary Care Provider [phone] Allergies Active Allergy Reactions Criticality Noted Date [...] Diagnosed Date Stage 3 chronic kidney disease ([facility] V24, [facility] V28) 01/05/2025 Assessment & Plan (01/05/2025 1:00 PM EDT): He is followed by Dr. Jennings of the nephrology service. Recent blood tests were completed at [facility]. A note will be sent to his software reverse engineer regarding his condition. He sees Dr. Montague later this week. Consideration should be given to starting Entresto with close monitoring of renal parameters. Acute systolic CHF (congesti ve heart failure) ([facility] V24, [facility] V28) 12/31/2024 Assessment & Plan (01/05/2025 1:00 [...] A note will be sent to his software reverse engineer and primary care physician regarding his condition. Orders: Transthoracic echocardiogram (TTE) complete with PRN contrast, bubble, strain, and 3D order panel; Future Morbid obesity ([facility] V24, [facility] V28) 2024 Assessment & Plan (01/05/2025 1:00 PM EDT): MARANDA (obstructive sleep apnea) 12/03/2024 Assessment & Plan (01/05/2025 1:00 PM EDT): He was informed that replacement parts for his CPAP machine can be purchased on [employer]. He was advised to contact [facility] for further assistance with his CPAP machine. Hypertriglyceridemia 12/03/2024 Pre-diabetes 12/03/2024 Assessment & Plan (01/05/2025 1:00 PM EDT): Encounters Date Type Department Care Team Description 03/24/2025 3:02 PM EDT Anesthesia Event [facility] Endoscopy [address] [place] [address] Troy Royal MD 03/24/2025 2:04 PM EDT - 03/24/2025 11:59 PM EDT Hospital Encounter [facility] Endoscopy [address] [place] [phone] Bal Galaviz DO Pierce, Trudy A, CRNA Dasilva, John E, MD Colon cancer screening Discharge Disposition: Home or Self Care from Last 3 Months Immunizations Name Administration Dates Next Due Tdap Tetanus diptheria acell ular pertussis (Boostrix; Adacel) 7yo and older 06/02/2014 Surgical History Surgery Date Site/Laterality Comments OTHER SURGICAL HISTORY 1994 PROCEDURE: ---- OTHER ----; COMMENT: Right tib/fib Medical History Medical History Date Comments Morbid obesity ([facility] V24, [facility] V28) 04/28/2014 DX:Morbid obesity (HCC) MARANDA (obstructive sleep apnea) 05/11/2014 DX :MARANDA (obstructive sleep apnea); COMMENT: Sleep study - 05/08/14 - severe degree of sleep apnea, relieved with the use of nasal CPAP; CPAP 12 cm H2O recommended Chronic kidney disease, stag e 3 ([facility] V24, [facility] V28) Sepsis ([facility] V24, [facility] V28) secondary to acute bilateral tonsillitis Dysphagia Acute hypoxic respiratory fa ilure ([facility] V24, [facility] V28) Hypertension Family History Medical History Relation [...] Description 06/07/2025 10:00 AM EDT Ancillary Procedure [facility] [address] [place] [address] 07/21/2025 10:10 AM EDT Office Visit [facility] - [facility] [address] [place] [address] Deep Albrecht NP [address] [place] [address] [address] [place] [address] 08/05/2025 11:00 AM EDT Consult Bariatric Surgery - [place] [address] [facility] [address] [place] [phone] Saundra Gonzalez MD [address] [facility] [address] [place] [address] Health Maintenance Due Date Last Done Comments [...] 03/24/2025 3:19 PM EDT Colon cancer screening LIPID PANEL Routine 04/17/2016 HEPATITIS C SCREENING Routine 06/02/2014 HIV SCREENING Routine 06/02/2014 ANNUAL BMP BLOOD TEST Routine 04/28/2014 from Last 3 Months or Most Recently Relevant to Health Maintenance Results * COLONOSCOPY Anesthesia - [facility]; [facility] ENDOSCOPY (03/24/2025 3:27 PM EDT) Anatomical Region [...] pathology results. Narrative 03/24/2025 3:27 PM EDT [facility] GI Patient Name: Zackary Collins Procedure Date: 03/24/2025 3:05 PM Date of : 1980 Age: 44 Gender: Male Note Status: Finalized Attending MD: Bal Galaviz DO, [id number] Procedure Date No Time: 03/24/2025 Procedure: Colonoscopy [...] the physician, the nurse, the anesthesiologist, the slip seat coverer and the land survey technician in the pre-procedure area in the [...] retroflexion views. Procedure Code(s): --- Professional --- 11197, Colonoscopy, flexible; with removal of tumor(s), polyp(s), or other lesion(s) by snare technique Diagnosis Code(s): --- Professional --- Z12.11, Encounter for screening for malignant neoplasm of colon K64.9, Unspecified hemorrhoids D12.4, Benign neoplasm of descending colon D12.3, Benign neoplasm of transverse colon (hepatic flexure or splenic flexure) CPT copyright 2020 [employer]. All rights reserved. The codes documented in this report are preliminary and upon thread spooler review may be revised to meet current compliance requirements. BAL Galaviz DO 03/24/2025 3:27:19 PM This report has been signed electronically.Bal Galaviz DO Number of Addenda: 0 Note Initiated On: 03/24/2025 3:05 PM Scope Withdrawal Time: 0 hours 12 minutes 41 seconds Scope In: 3:10:36 PM Scope Out: 3:24:50 PM Endoscopy Department at [facility] - [address] [place] [phone] Procedure Note Bal Galaviz DO - 03/24/2025 [facility] GI Patient Name: Zackary Collins Procedure Date: 03/24/2025 3:05 PM Date of : 1980 Age: 44 Gender: Male Note Status: Finalized Attending MD: Bal Galaviz DO, [id number] Procedure Date No Time: 03/24/2025 Procedure: Colonoscopy [...] the physician, the nurse, the anesthesiologist, the slip seat coverer and thetechnician in the pre-procedure area in [...] retroflexion views. Procedure Code(s): --- Professional --- 45336, Colonoscopy, flexible; with removal of tumor(s), polyp(s), or other lesion(s) by snare technique Diagnosis Code(s): --- Professional --- Z12.11, Encounter for screening for malignantneoplasm of colon K64.9, Unspecified hemorrhoids D12.4, Benign neoplasm of descending colon D12.3, Benign neoplasm of transverse colon (hepatic flexure or splenic flexure) CPT copyright 2020 [employer]. All rights reserved. The codes documented in this report are preliminary and upon thread spooler reviewmay be revised to meet current compliance requirements. BAL Galaviz DO 03/24/2025 3:27:19 PM This report has been signed electronically.Bal Galaviz DO Number of Addenda: 0 Note Initiated On: 03/24/2025 3:05 PM Scope Withdrawal Time: 0 hours 12 minutes 41 seconds Scope In: 3:10:36 PM Scope Out: 3:24:50 PM Endoscopy Department at [facility] - [address] [place] [phone] IMPRESSION: - Hemorrhoids found on perianal exam. [...] Multiple levels evaluated. 03/29/2025 2:35 PM EDT [facility] Gross Description A. Large Intestine, [...] multiple levels. hs/DG 03/29/2025 2:35 PM EDT [facility] Disclaimer Unless otherwise specified, all tissue is 10% NB formalin fixed and paraffin embedded. 03/29/2025 2:35 PM EDT [facility] Tissue Transverse colon structure / Unknown 03/24/2025 3:19 PM EDT 03/24/2025 4:12 PM EDT Tissue specimen (specimen) Descending colon structure / Unknown 03/24/2025 3:21 PM EDT 03/24/2025 4:12 PM EDT Bal Galaviz DO LAB PATHOLOGY ORDERABLES Final R esult [facility] [address] [place] [address], * (ABNORMAL) Lipid panel (04/17/2016) Pathologist [facility] LDL/HDL Ratio 5(A) 0 - 4 Triglycerides 112 0 - 150 mg/dL Cholesterol 200 0 - 200 mg/dL HDL 39(A) >=40 mg/dL LDL Cholesterol 139(A) 0 - 100 mg/dL Blood Venous blood specimen / Unknown Historical Provider LAB BLOOD ORDERABLES Elisabet l Result * HIV Screening (06/02/2014) Pathologist [facility] HIV Screening Abstracted [facility] Provider HEALTH MAINTENANCE Final Result * Hepatitis C Screening (06/02/2014) Pathologist [facility] Hepatitis C Screening Abstracted [facility] Provider HEALTH MAINTENANCE Final Result * Annual BMP Blood Test (04/28/2014) Pathologist [facility] Annual BMP Blood Test Abstracted [facility] Provider HEALTH MAINTENANCE Final Result from Last 3 Months or Most Recently Relevant to Health Maintenance Insurance [facility] [place] [address] Care Teams Wind Science And Planning Relationship Specialty Start Date End Date Jeff Vale MD [address] [facility] [address] [place] [address] PCP - General Internal Medicine 12/02/24
--- OUTSIDE RECORDS SUMMARY | 2025-06-02 14:33 | XMS_ITS | Clinical Summary ---
Author Organization [facility] Address [address] [address] Phone Care Team Providers Care Package Crimper Name Role Phone Jose Etienne Reid DO [...] PCV) 1998 Influenza Vaccine (#1) 2025 Insurance [facility] Medicaid Care Teams Package Crimper Relationship Specialty Start Date End Date Etienne Wharton DO [address] [facility] [address] [place] [phone] PCP - General Internal Medicine 03/01/21
[2025-06-02 18:36] LABS: Anion Gap 13 (12-20); Blood Urea Nitrogen 29 mg/dL (9-16); Carbon Dioxide 28 mmol/L (22-29); Chloride 105 mmol/L (96-108); Estimated Glomerular Filt Rate 31; Potassium 4.1 mmol/L (3.3-5.1); Sodium 142 mmol/L (135-145)
== END 2025-06-02 13:39 | disposition home or self-care (01) ==
LOC: HO.HKASLDS 13:38
PROVIDERS: Visit Provider Internal Medicine Nephrology
DX: I12.9 Hypertensive chronic kidney disease with stage 1 through stage 4 chronic kidney disease, or unspecified chronic kidney disease (principal); N18.32 Chronic kidney disease, stage 3b
CPT/HCPCS: 36415; 80051; 82565; 84520

== ENCOUNTER 2025-06-03 12:02 | Outpatient (AMB) | payer OTHER, SELFPAY ==
--- NOTE | 2025-06-03 12:45 | HO.NEPHOV_ITS ---
Vital Signs 06/03/25 12:46 Height 6 ft 2 in Weight 331 lb 4 oz BMI 42.5 BP 140/100 H Blood Pressure Location Lt brachial Position Sitting Pulse 75 Pulse Source Pulse Oximeter Pulse Oximetry (%) 96 Oxygen Delivery Method Room Air Intake Visit Reasons: 1mnth-Conf Pre Press Proofer Required: No Accompanied by: Self / Same As Patient Allergies No Known Allergies Allergy (Verified 06/03/25 12:46) HPI Comments Details: Sangeeta Lopez is a 44 y/o man with CKD 3 and hypertension who recently had a hospitalization for hypertensive urgency with SBP 200/140. His hypertensive urgency, resolved with re-initiation of his oral home antihypertensive meds. He has had multiple admissions in the past ([facility] and [facility] There had been a huge concern about medication compliance. CT and MRI were done during hospitalization . CT revealed several ill-defined areas of decreased density which is more pronounced in the right frontal lobe which was determined to be artifactual and technically indeterminate. MRI showed periventricular and subcortical white matter hyperintensities which are nonspecific, but greater than expected for patient of this age. His spironolactone and furosemide were held during recent hospitalization. He has H/O renal cyst(8 mm left upper pole renal cyst). His acute on chronic kidney disease due to hypertensive nephropathy with history of cardiorenal syndrome + proteinuria was concerning for infiltrative disease. He has HFrEF (35%).He has MARANDA and needs to continue Nocturnal CPAP. He is a candidate for GLP 1 given his co morbidities. [facility] Medical History Pre-diabetes Hypertriglyceridemia MARANDA (obstructive sleep apnea) Morbid obesity Surgical History History of ankle surgery Family History Mother Thyroid disease Maternal Grandmother Diabetes Hypertension Kidney disease Social History Alcohol intake: never Patient Tobacco Use Status: Former Tobacco user Substance Use Type: Marijuana service: No Review of Systems Const All systems reviewed & are unremarkable except as noted in HPI and below Physical Exam Vital Signs: Last Vital Signs Pulse 75 06/03/25 12:46 BP 140/100 H 06/03/25 12:46 Pulse Ox 96 06/03/25 12:46 Oxygen Delivery Method Room Air 06/03/25 12:46 BMI result Body Mass Index 42.5 Const General: comfortable and no acute distress Orientation/consciousness: patient oriented x3 HEENT Head: Yes normocephalic Mouth: Normal oral and palatal mucosa present Eyes EOM: EOMs intact bilaterally Neck Neck: Yes supple Resp Auscultation: clear to auscultation bilaterally Cardio Jugular venous distension: no JVD Rate: regular rate GI Palpation (GI): Soft to palpation Auscultation: normal bowel sounds General: Yes no CVA tenderness Back/Spine/Pelvis Back: no CVA tenderness Skin General skin exam: no rashes or lesions noted Neuro General: patient oriented x3 and moves all extremities Extrem General: Yes no pedal edema Results Reviewed Nephrology Results: Hgb, (14.0-18.0) 15.4 g/dl 04/23/25 WBC, (4.8-10.8) 7.0 X10*3/uL 04/23/25 Plt Count, (160-400) 234 X10*3/uL 04/23/25 Sodium, (135-145) 142 mmol/L 06/02/25 Potassium, (3.3-5.1) 4.1 mmol/L 06/02/25 Chloride, (96-108) 105 mmol/L 06/02/25 Carbon Dioxide, (22-29) 28 mmol/L 06/02/25 BUN, (9-16) 29 mg/dL H 06/02/25 Creatinine, (0.5-1.4) 2.31 mg/dL H 06/02/25 Calcium, (8.4-10.2) 8.7 mg/dL 04/23/25 Phosphorus, (2.7-4.5) 3.7 mg/dL 04/23/25 Urine Protein, (Neg-Trace) 300 (3+) mg/dL H 04/22/25 Protein/Creatinin Ratio, (25-148) 1120 mg/g creat H Renal US 04/22/25 Assessment & Plan Assessment & Plan (1) Hypertension: Code(s): I10 - Essential (primary) hypertension Category: Medical Qualifiers: Hypertension type: primary hypertension Qualified Code(s): I10 - Essential (primary) hypertension (2) CKD stage 3b, GFR 30-44 ml/min: Code(s): N18.32 - Chronic kidney disease, stage 3b Category: Medical Plan Chad has baseline CKD stage 3 from hypertensive nephropathy. He has history of systolic heart failure. His recent ejection fraction was 35%. He has H/O NORY on CKD due to cardiorenal syndrome. He has proteinuria. He needs to lose weight, keep up with a low-sodium diet, be compliant with his medications as well as CPAP. We need to rule out any infiltrative myocardial disease given systolic dysfunction as well as CKD. I asked him to continue current medications for now and bring his medications for review. He will be a great candidate for GLP agonist & SGLT2 i. All these have been explained in detail to patient. Further management is pending evolving data Orders: Orders Creatinine 1 Month I10 - Essential (primary) hypertension, N18.32 - Chronic kidney disease, stage 3b Electrolytes 1 Month I10 - Essential (primary) hypertension, N18.32 - Chronic kidney disease, stage 3b Immunofixation Pnl, Serum 1 Month N18.32 - Chronic kidney disease, stage 3b Blood Urea Nitrogen 1 Month I10 - Essential (primary) hypertension, N18.32 - Chronic kidney disease, stage 3b Medications: New amlodipine 10 mg (2 x 5 mg) PO DAILY 90 tabs 3RF Changed From isosorbide mononitrate ER 60 mg PO DAILY To isosorbide mononitrate ER 60 mg (2 x 30 mg) PO DAILY 180 tabs 3RF 90 days From labetalol 200 mg PO BID To labetalol 200 mg PO BID 180 tabs 3RF 90 days Coding Level of Care Code Est Pt Level 4 (43186) Diagnoses Primary hypertension I10 Hypertension type: primary hypertension CKD stage 3b, GFR 30-44 ml/min N18.32
[2025-06-03 12:46] VITALS: BP 140/100; PULSE 75; O2SAT 96; BMI 42.5
== END 2025-06-03 13:07 | disposition home or self-care (01) ==
LOC: HO.HKAS 12:03
PROVIDERS: PCP Internal Medicine; Visit Provider Internal Medicine Nephrology
DX: I10 Essential (primary) hypertension (principal); N18.32 Chronic kidney disease, stage 3b
CPT/HCPCS: 99214

== ENCOUNTER → 2025-06-03 12:02 | Outpatient (BNVA) | payer OTHER, SELFPAY | PROVIDERS: PCP Internal Medicine; Visit Provider Internal Medicine Nephrology | DX: I12.9 Hypertensive chronic kidney disease with stage 1 through stage 4 chronic kidney disease, or unspecified chronic kidney disease (principal); N18.32 Chronic kidney disease, stage 3b | CPT/HCPCS: 99212 ==

== ENCOUNTER 2025-07-05 11:38 | Outpatient (REF) | payer OTHER, SELFPAY ==
--- OUTSIDE RECORDS SUMMARY | 2025-07-05 14:21 | XMS_ITS | Clinical Summary ---
Author Organization [address] [facility] Address [address] [place] [address] Phone Care Team Providers Care Telegraphic Instrument Supervisor Name Role Phone Jeff Vale MD Primary Care Provider [phone] Allergies Active Allergy Reactions Criticality Noted Date [...] Diagnosed Date Stage 3 chronic kidney disease ([facility] V24, [facility] V28) 01/05/2025 Assessment & Plan (01/05/2025 1:00 PM EDT): He is followed by Dr. Jennings of the nephrology service. Recent blood tests were completed at [facility]. A note will be sent to his hospice spiritual care coordinator regarding his condition. He sees Dr. Montague later this week. Consideration should be given to starting Entresto with close monitoring of renal parameters. Acute systolic CHF (congesti ve heart failure) ([facility] V24, [facility] V28) 12/31/2024 Assessment & Plan [...] A note will be sent to his hospice spiritual care coordinator and primary care physician regarding his condition. Orders: Transthoracic echocardiogram (TTE) complete with PRN contrast, bubble, strain, and 3D order panel; Future Morbid obesity ([facility] V24, [facility] V28) 2024 Assessment & Plan (01/05/2025 1:00 PM EDT): MARANDA (obstructive sleep apnea) 12/03/2024 Assessment & Plan (01/05/2025 1:00 PM EDT): He was informed that replacement parts for his CPAP machine can be purchased on [employer]. He was advised to contact [facility] for further assistance with his CPAP machine. Hypertriglyceridemia 12/03/2024 Pre-diabetes 12/03/2024 Assessment & Plan (01/05/2025 1:00 PM EDT): Immunizations Name Administration Dates Next Due Tdap Tetanus diptheria acell ular pertussis (Boostrix; Adacel) 7yo and older 06/02/2014 Surgical History Surgery Date Site/Laterality Comments OTHER SURGICAL HISTORY 1994 PROCEDURE: ---- OTHER ----; COMMENT: Right tib/fib Medical History Medical History Date Comments Morbid obesity ([facility] V24, [facility] V28) 04/28/2014 DX:Morbid obesity (HCC) MARANDA (obstructive sleep apnea) 05/11/2014 DX :MARANDA (obstructive sleep apnea); COMMENT: Sleep study - 05/08/14 - severe degree of sleep apnea, relieved with the use of nasal CPAP; CPAP 12 cm H2O recommended Chronic kidney disease, stag e 3 ([facility] V24, [facility] V28) Sepsis ([facility] V24, [facility] V28) secondary to acute bilateral tonsillitis Dysphagia Acute hypoxic respiratory fa ilure ([facility] V24, [facility] V28) Hypertension Family History Medical History Relation [...] Care Team (Late st Contact Info) Description 07/21/2025 10:10 AM EDT Office Visit [facility] [address] [place] [phone] Deep Albrecht NP [address] [place] [address] [place] [phone] 08/05/2025 11:00 AM EDT Consult Bariatric Surgery - [place] [address] [place] [address] Saundra Gonzalez MD [address] [place] [phone] Health Maintenance Due Date Last Done Comments [...] 03/24/2025 3:27 PM EDT Colon cancer screening LIPID PANEL Routine 04/17/2016 HEPATITIS C SCREENING Routine 06/02/2014 HIV SCREENING Routine 06/02/2014 ANNUAL BMP BLOOD TEST Routine 04/28/2014 from Last 3 Months or Most Recently Relevant to Health Maintenance Results * COLONOSCOPY Anesthesia - MAC; [facility] ENDOSCOPY (03/24/2025 3:27 PM EDT) Anatomical Region [...] pathology results. Narrative 03/24/2025 3:27 PM EDT [facility] GI Patient Name: Zackary Collins Procedure Date: 03/24/2025 3:05 PM Date of : 1980 Age: 44 Gender: Male Note Status: Finalized Attending MD: Bal Galaviz DO, [id number] Procedure Date No Time: 03/24/2025 Procedure: Colonoscopy [...] the physician, the nurse, the anesthesiologist, the community artist and the data collection technician in the pre-procedure area in the [...] retroflexion views. Procedure Code(s): --- Professional --- 96473, Colonoscopy, flexible; with removal of tumor(s), polyp(s), or other lesion(s) by snare technique Diagnosis Code(s): --- Professional --- Z12.11, Encounter for screening for malignant neoplasm of colon K64.9, Unspecified hemorrhoids D12.4, Benign neoplasm of descending colon D12.3, Benign neoplasm of transverse colon (hepatic flexure or splenic flexure) CPT copyright 2020 [employer]. All rights reserved. The codes documented in this report are preliminary and upon cost control analyst review may be revised to meet current compliance requirements. BAL Galaviz DO 03/24/2025 3:27:19 PM This report has been signed electronically.Bal Galaviz DO Number of Addenda: 0 Note Initiated On: 03/24/2025 3:05 PM Scope Withdrawal Time: 0 hours 12 minutes 41 seconds Scope In: 3:10:36 PM Scope Out: 3:24:50 PM Endoscopy Department at [facility] - [address] [place] [phone] Procedure Note Bal Galaviz DO - 03/24/2025 [facility] GI Patient Name: Zackary Collins Procedure Date: 03/24/2025 3:05 PM Date of : 1980 Age: 44 Gender: Male Note Status: Finalized Attending MD: Bal Galaviz DO, [id number] Procedure Date No Time: 03/24/2025 Procedure: Colonoscopy [...] the physician, the nurse, the anesthesiologist, the community artist and thetechnician in the pre-procedure area in [...] retroflexion views. Procedure Code(s): --- Professional --- 15654, Colonoscopy, flexible; with removal of tumor(s), polyp(s), or other lesion(s) by snare technique Diagnosis Code(s): --- Professional --- Z12.11, Encounter for screening for malignantneoplasm of colon K64.9, Unspecified hemorrhoids D12.4, Benign neoplasm of descending colon D12.3, Benign neoplasm of transverse colon (hepatic flexure or splenic flexure) CPT copyright 2020 [employer]. All rights reserved. The codes documented in this report are preliminary and upon cost control analyst reviewmay be revised to meet current compliance requirements. BAL Galaviz DO 03/24/2025 3:27:19 PM This report has been signed electronically.Bal Galaviz DO Number of Addenda: 0 Note Initiated On: 03/24/2025 3:05 PM Scope Withdrawal Time: 0 hours 12 minutes 41 seconds Scope In: 3:10:36 PM Scope Out: 3:24:50 PM Endoscopy Department at [facility] - [address] [place] [phone] IMPRESSION: - Hemorrhoids found on perianal exam. [...] colonoscopy for surveillance based on pathology results. us Bal Guillaume DO GI~PROCEDURE ORDERABLES Final Re sult * (ABNORMAL) Lipid panel (04/17/2016) [facility] LDL/HDL Ratio 5(A) 0 - 4 Triglycerides 112 0 - 150 mg/dL Cholesterol 200 0 - 200 mg/dL HDL 39(A) >=40 mg/dL LDL Cholesterol 139(A) 0 - 100 mg/dL Blood Venous blood specimen / Unknown Result [facility] Historical Provider LAB BLOOD ORDERABLES Elisabet l Result * HIV Screening (06/02/2014) [facility] HIV Screening Abstracted Result [facility] Provider HEALTH MAINTENANCE Final Result * Hepatitis C Screening (06/02/2014) [facility] Hepatitis C Screening Abstracted Result [facility] Provider HEALTH MAINTENANCE Final Result * Annual BMP Blood Test (04/28/2014) [facility] Annual BMP Blood Test Abstracted Historical Provider HEALTH MAINTENANCE Final Result from Last 3 Months or Most Recently Relevant to Health Maintenance Insurance [facility] [place] [address] Care Teams Telegraphic Instrument Supervisor Relationship Specialty Start Date End Date Jeff Vale MD [address] [place] [address] PCP - General Internal Medicine 12/02/24
--- OUTSIDE RECORDS SUMMARY | 2025-07-05 14:21 | XMS_ITS | Clinical Summary ---
Author Organization [facility] Address [address] [address] Phone Care Team Providers Care Personal Lines Insurance Agent Name Role Phone Jose Etienne Reid DO [...] PCV) 1998 Influenza Vaccine (#1) 2025 Insurance [facility] Medicaid Care Teams Personal Lines Insurance Agent Relationship Specialty Start Date End Date Etienne Wharton DO [address] [facility] [address] [place] [phone] PCP - General Internal Medicine 03/01/21
[2025-07-05 18:40] LABS: Anion Gap 11 (12-20); Blood Urea Nitrogen 24 mg/dL (9-16); Carbon Dioxide 29 mmol/L (22-29); Chloride 106 mmol/L (96-108); Estimated Glomerular Filt Rate 31; Potassium 3.6 mmol/L (3.3-5.1); Sodium 142 mmol/L (135-145)
== END 2025-07-05 11:39 | disposition home or self-care (01) ==
LOC: HO.HKASLDS 11:38
PROVIDERS: Visit Provider Internal Medicine Nephrology
DX: I12.9 Hypertensive chronic kidney disease with stage 1 through stage 4 chronic kidney disease, or unspecified chronic kidney disease (principal); N18.32 Chronic kidney disease, stage 3b
CPT/HCPCS: 36415; 80051; 82565; 82784; 84520; 86334

== ENCOUNTER 2025-07-06 11:48 | Outpatient (AMB) | payer OTHER, SELFPAY ==
--- NOTE | 2025-07-06 11:51 | HO.NEPHOV ---
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 His hypertensive urgency, resolved with re-initiation of his oral home antihypertensive meds. He has had multiple admissions in the past ([facility] and [facility]). There had been a huge concern about medication compliance. CT and MRI were done during hospitalization . CT revealed several ill-defined areas of decreased density which is more pronounced in the right frontal lobe which was determined to be artifactual and technically indeterminate. MRI showed periventricular and subcortical white matter hyperintensities which are nonspecific, but greater than expected for patient of this age. His spironolactone and furosemide were held during recent hospitalization. He has H/O renal cyst(8 mm left upper pole renal cyst). His acute on chronic kidney disease due to hypertensive nephropathy with history of cardiorenal syndrome + proteinuria was concerning for infiltrative disease. He has HFrEF (35%).He has MARANDA and needs to continue Nocturnal CPAP. He is a candidate for GLP 1 given his co morbidities.He has not been taking his medications for 10 days. [facility] Medical History Pre-diabetes Hypertriglyceridemia MARANDA (obstructive sleep apnea) Morbid obesity Surgical History History of ankle surgery Family History Mother Thyroid disease Maternal Grandmother Diabetes Hypertension Kidney disease Social History Alcohol intake: never Patient Tobacco Use Status: Former Tobacco user Substance Use Type: Marijuana service: No Review of Systems Const All systems reviewed & are unremarkable except as noted in HPI and below Physical Exam Const General: comfortable and no acute distress Orientation/consciousness: patient oriented x3 HEENT Head: Yes normocephalic Mouth: Normal oral and palatal mucosa present Eyes EOM: EOMs intact bilaterally Neck Neck: Yes supple Resp Auscultation: clear to auscultation bilaterally Cardio Jugular venous distension: no JVD Rate: regular rate GI Palpation (GI): Soft to palpation Auscultation: normal bowel sounds General: Yes no CVA tenderness Back/Spine/Pelvis Back: no CVA tenderness Skin General skin exam: no rashes or lesions noted Neuro General: patient oriented x3 and moves all extremities Extrem General: Yes no pedal edema Assessment & Plan Assessment & Plan (1) Hypertension: Code(s): I10 - Essential (primary) hypertension Category: Medical Qualifiers: Hypertension type: primary hypertension Qualified Code(s): I10 - Essential (primary) hypertension (2) CKD stage 3a, GFR 45-59 ml/min: Code(s): N18.31 - Chronic kidney disease, stage 3a Category: Medical Plan Chad has baseline CKD stage 3 from hypertensive nephropathy. He has history of systolic heart failure. His recent ejection fraction was 35%. He has H/O NORY on CKD due to cardiorenal syndrome. He has proteinuria. He needs to lose weight, keep up with a low-sodium diet, be compliant with his medications as well as CPAP. We need to rule out any infiltrative myocardial disease given systolic dysfunction as well as CKD. I asked him to continue current medications for now and bring his medications for review. He will be a great candidate for GLP agonist & SGLT2 i. I re initiated his medications as he was not taking them for 10 days. All these have been explained in detail to patient. Further management is pending evolving data Medications: New furosemide 20 mg PO DAILY 90 tabs 3RF spironolactone 25 mg PO DAILY 90 tabs 3RF Changed From amlodipine 10 mg (2 x 5 mg) PO DAILY 90 tabs 3RF To amlodipine 10 mg PO DAILY 90 tabs 3RF From hydralazine 25 mg PO TID To hydralazine 25 mg PO TID 270 tabs 3RF 90 days From isosorbide mononitrate ER 60 mg (2 x 30 mg) PO DAILY 90 days 180 tabs 3RF To isosorbide mononitrate ER 60 mg PO DAILY 90 tabs 3RF 90 days Refilled labetalol 200 mg PO BID 180 tabs 3RF 90 days Coding Level of Care Code Est Pt Level 4 (82561) Diagnoses Primary hypertension I10 Hypertension type: primary hypertension CKD stage 3a, GFR 45-59 ml/min N18.31
[2025-07-06 11:53] VITALS: BP 190/124; PULSE 76; O2SAT 96; BMI 43.6
--- OUTSIDE RECORDS SUMMARY | 2025-07-06 14:40 | XMS_ITS | Clinical Summary ---
Author Organization [facility] Address [address] [address] Phone Care Team Providers Care Paper And Pulp Mill Operator Name Role Phone Jose Etienne Reid DO [...] PCV) 1998 Influenza Vaccine (#1) 2025 Insurance [facility] [place] [id number] Care Teams Paper And Pulp Mill Operator Relationship Specialty Start Date End Date Etienne Wharton DO [address] [facility] [address] [place] [phone] PCP - General Internal Medicine 03/01/21
--- OUTSIDE RECORDS SUMMARY | 2025-07-06 14:40 | XMS_ITS | Clinical Summary ---
Author Organization 175 [facility] Address [address] [place] [address] Phone Care Team Providers Care Heading And Priming Tool Setter Name Role Phone Jeff Vale MD Primary Care Provider [phone] Allergies Active Allergy Reactions Criticality Noted Date [...] Diagnosed Date Stage 3 chronic kidney disease ([facility] V24, [facility] V28) 01/05/2025 Assessment & Plan (01/05/2025 1:00 PM EDT): He is followed by Dr. Jennings of the nephrology service. Recent blood tests were completed at [facility]. A note will be sent to his meat carver regarding his condition. He sees Dr. Montague later this week. Consideration should be given to starting Entresto with close monitoring of renal parameters. Acute systolic CHF (congesti ve heart failure) ([facility] V24, [facility] V28) 12/31/2024 Assessment & [...] A note will be sent to his meat carver and primary care physician regarding his condition. Orders: Transthoracic echocardiogram (TTE) complete with PRN contrast, bubble, strain, and 3D order panel; Future Morbid obesity ([facility] V24, [facility] V28) 2024 Assessment & Plan (01/05/2025 1:00 PM EDT): MARANDA (obstructive sleep apnea) 12/03/2024 Assessment & Plan (01/05/2025 1:00 PM EDT): He was informed that replacement parts for his CPAP machine can be purchased on [employer]. He was advised to contact [facility] for further assistance with his CPAP machine. Hypertriglyceridemia 12/03/2024 Pre-diabetes 12/03/2024 Assessment & Plan (01/05/2025 1:00 PM EDT): Immunizations Name Administration Dates Next Due Tdap Tetanus diptheria acell ular pertussis (Boostrix; Adacel) 7yo and older 06/02/2014 Surgical History Surgery Date Site/Laterality Comments OTHER SURGICAL HISTORY 1994 PROCEDURE: ---- OTHER ----; COMMENT: Right tib/fib Medical History Medical History Date Comments Morbid obesity ([facility] V24, [facility] V28) 04/28/2014 DX:Morbid obesity (HCC) MARANDA (obstructive sleep apnea) 05/11/2014 DX :MARANDA (obstructive sleep apnea); COMMENT: Sleep study - 05/08/14 - severe degree of sleep apnea, relieved with the use of nasal CPAP; CPAP 12 cm H2O recommended Chronic kidney disease, stag e 3 ([facility] V24, [facility] V28) Sepsis ([facility] V24, [facility] V28) secondary to acute bilateral tonsillitis Dysphagia Acute hypoxic respiratory fa ilure ([facility] V24, [facility] V28) Hypertension Family History [...] Description 07/21/2025 10:10 AM EDT Office Visit [facility] [address] [place] [phone] Deep Albrecht NP [address] [place] [address] [place] [phone] 08/05/2025 11:00 AM EDT Consult Bariatric Surgery - [place] [address] [place] [address] Saundra Gonzalez MD [address] [place] [phone] Health Maintenance Due Date Last Done Comments [...] Maintenance Results * COLONOSCOPY Anesthesia - MAC; [facility] ENDOSCOPY (03/24/2025 3:27 PM EDT) [...] pathology results. Narrative 03/24/2025 3:27 PM EDT [facility] GI Patient Name: Zackary Collins Procedure Date: 03/24/2025 3:05 PM Date of : 1980 Age: 44 Gender: Male Note Status: Finalized Attending MD: Bal Galaviz DO, [id number] Procedure Date No Time: 03/24/2025 Procedure: Colonoscopy [...] the physician, the nurse, the anesthesiologist, the deck molder and the motor vehicle technician in the pre-procedure area in the [...] retroflexion views. Procedure Code(s): --- Professional --- 58422, Colonoscopy, flexible; with removal of tumor(s), polyp(s), or other lesion(s) by snare technique Diagnosis Code(s): --- Professional --- Z12.11, Encounter for screening for malignant neoplasm of colon K64.9, Unspecified hemorrhoids D12.4, Benign neoplasm of descending colon D12.3, Benign neoplasm of transverse colon (hepatic flexure or splenic flexure) CPT copyright 2020 [employer]. All rights reserved. The codes documented in this report are preliminary and upon educator senior clinical review may be revised to meet current compliance requirements. BAL Galaviz DO 03/24/2025 3:27:19 PM This report has been signed electronically.Bal Galaviz DO Number of Addenda: 0 Note Initiated On: 03/24/2025 3:05 PM Scope Withdrawal Time: 0 hours 12 minutes 41 seconds Scope In: 3:10:36 PM Scope Out: 3:24:50 PM Endoscopy Department at [facility] - [address] [place] [id number] Procedure Note Bal Galaviz DO - 03/24/2025 [facility] GI Patient Name: Zackary Collins Procedure Date: 03/24/2025 3:05 PM Date of : 1980 Age: 44 Gender: Male Note Status: Finalized Attending MD: Bal Galaviz DO, [id number] Procedure Date No Time: 03/24/2025 Procedure: Colonoscopy [...] the physician, the nurse, the anesthesiologist, the deck molder and thetechnician in the pre-procedure area in [...] retroflexion views. Procedure Code(s): --- Professional --- 17793, Colonoscopy, flexible; with removal of tumor(s), polyp(s), or other lesion(s) by snare technique Diagnosis Code(s): --- Professional --- Z12.11, Encounter for screening for malignantneoplasm of colon K64.9, Unspecified hemorrhoids D12.4, Benign neoplasm of descending colon D12.3, Benign neoplasm of transverse colon (hepatic flexure or splenic flexure) CPT copyright 2020 [employer]. All rights reserved. The codes documented in this report are preliminary and upon educator senior clinical reviewmay be revised to meet current compliance requirements. BAL Galaviz DO 03/24/2025 3:27:19 PM This report has been signed electronically.Bal Galaviz DO Number of Addenda: 0 Note Initiated On: 03/24/2025 3:05 PM Scope Withdrawal Time: 0 hours 12 minutes 41 seconds Scope In: 3:10:36 PM Scope Out: 3:24:50 PM Endoscopy Department at [facility] - [address] [place] [id number] IMPRESSION: - Hemorrhoids found on perianal exam. [...] Re sult * (ABNORMAL) Lipid panel (04/17/2016) [facility] LDL/HDL Ratio 5(A) 0 - 4 Triglycerides 112 0 - 150 mg/dL Cholesterol 200 0 - 200 mg/dL HDL 39(A) >=40 mg/dL LDL Cholesterol 139(A) 0 - 100 mg/dL Blood Venous blood specimen / Unknown Result [facility] Historical Provider LAB BLOOD ORDERABLES Elisabet l Result * HIV Screening (06/02/2014) [facility] HIV Screening Abstracted Result [facility] Provider HEALTH MAINTENANCE Final Result * Hepatitis C Screening (06/02/2014) [facility] Hepatitis C Screening Abstracted Result [facility] Provider HEALTH MAINTENANCE Final Result * Annual BMP Blood Test (04/28/2014) [facility] Annual BMP Blood Test Abstracted Historical Provider HEALTH MAINTENANCE Final Result from Last 3 Months or Most Recently Relevant to Health Maintenance Insurance [facility] [employer] [facility] Care Teams Heading And Priming Tool Setter Relationship Specialty Start Date End Date Jeff Vale MD [address] [place] [address] PCP - General Internal Medicine 12/02/24
== END 2025-07-06 12:04 | disposition home or self-care (01) ==
LOC: HO.HKAS 11:49
PROVIDERS: PCP Internal Medicine; Visit Provider Internal Medicine Nephrology
DX: I10 Essential (primary) hypertension (principal); N18.31 Chronic kidney disease, stage 3a
CPT/HCPCS: 99214

== ENCOUNTER → 2025-07-06 11:48 | Outpatient (BNVA) | payer OTHER, SELFPAY | PROVIDERS: PCP Internal Medicine; Visit Provider Internal Medicine Nephrology | DX: I12.9 Hypertensive chronic kidney disease with stage 1 through stage 4 chronic kidney disease, or unspecified chronic kidney disease (principal); N18.31 Chronic kidney disease, stage 3a | CPT/HCPCS: 99212 ==

== ENCOUNTER 2025-09-21 15:04 | Outpatient (AMB) | payer OTHER, SELFPAY ==
[2025-09-21 15:16] VITALS: BP 150/110; BMI 41.9
--- NOTE | 2025-09-21 15:16 | HO.NEPHOV ---
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 His hypertensive urgency, resolved with re-initiation of his oral home antihypertensive meds. He has had multiple admissions in the past ([facility] and [facility] There had been a huge concern about medication compliance. CT and MRI were done during hospitalization . CT revealed several ill-defined areas of decreased density which is more pronounced in the right frontal lobe which was determined to be artifactual and technically indeterminate. MRI showed periventricular and subcortical white matter hyperintensities which are nonspecific, but greater than expected for patient of this age. His spironolactone and furosemide were held during recent hospitalization. He has H/O renal cyst(8 mm left upper pole renal cyst). His acute on chronic kidney disease due to hypertensive nephropathy with history of cardiorenal syndrome + proteinuria was concerning for infiltrative disease. He has HFrEF (35%).He has MARANDA and needs to continue Nocturnal CPAP. He has been started on Mounjaro PFSH Medical History Pre-diabetes Hypertriglyceridemia MARANDA (obstructive sleep apnea) Morbid obesity Surgical History History of ankle surgery Family History Mother Thyroid disease Maternal Grandmother Diabetes Hypertension Kidney disease Social History Alcohol intake: never Patient Tobacco Use Status: Former Tobacco user Substance Use Type: Marijuana service: No Review of Systems Const All systems reviewed & are unremarkable except as noted in HPI and below Physical Exam Vital Signs: Last Vital Signs BP 150/110 H 09/21/25 15:16 BMI result Body Mass Index 41.9 Const General: comfortable and no acute distress Orientation/consciousness: patient oriented x3 HEENT Head: Yes normocephalic Mouth: Normal oral and palatal mucosa present Eyes EOM: EOMs intact bilaterally Neck Neck: Yes supple Resp Auscultation: clear to auscultation bilaterally Cardio Jugular venous distension: no JVD Rate: regular rate GI Palpation (GI): Soft to palpation Auscultation: normal bowel sounds General: Yes no CVA tenderness Back/Spine/Pelvis Back: no CVA tenderness Skin General skin exam: no rashes or lesions noted Neuro General: patient oriented x3 and moves all extremities Extrem General: Yes no pedal edema Results Reviewed Nephrology Results: Sodium, (135-145) 142 mmol/L 07/05/25 Potassium, (3.3-5.1) 3.6 mmol/L 07/05/25 Chloride, (96-108) 106 mmol/L 07/05/25 Carbon Dioxide, (22-29) 29 mmol/L 07/05/25 BUN, (9-16) 24 mg/dL H 07/05/25 Creatinine, (0.5-1.4) 2.31 mg/dL H 07/05/25 Renal US 04/22/25 Assessment & Plan Assessment & Plan (1) Hypertension: Code(s): I10 - Essential (primary) hypertension Category: Medical Qualifiers: Hypertension type: primary hypertension Qualified Code(s): I10 - Essential (primary) hypertension (2) CKD stage 3b, GFR 30-44 ml/min: Code(s): N18.32 - Chronic kidney disease, stage 3b Category: Medical Plan Chad has baseline CKD stage 3 from hypertensive nephropathy. He has history of systolic heart failure. His recent ejection fraction was 35%. He has H/O NORY on CKD due to cardiorenal syndrome. He has proteinuria. He needs to lose weight, keep up with a low-sodium diet, be compliant with his medications as well as CPAP. I asked him to continue current medications for now and bring his medications for review. He is on Mounjaro. All these have been explained in detail to patient.( I may have to increase his Spironolactone after reviewing his medications- pt is going to bring it to office on [address]). Orders: Orders Electrolytes 6 Weeks I10 - Essential (primary) hypertension, N18.32 - Chronic kidney disease, stage 3b Blood Urea Nitrogen 6 Weeks I10 - Essential (primary) hypertension, N18.32 - Chronic kidney disease, stage 3b Creatinine 6 Weeks I10 - Essential (primary) hypertension, N18.32 - Chronic kidney disease, stage 3b Coding Level of Care Code Est Pt Level 4 (31801) Diagnoses Primary hypertension I10 Hypertension type: primary hypertension CKD stage 3b, GFR 30-44 ml/min N18.32
== END 2025-09-21 15:38 | disposition home or self-care (01) ==
LOC: HO.HKAS 15:05
PROVIDERS: PCP Internal Medicine; Visit Provider Internal Medicine Nephrology
DX: I10 Essential (primary) hypertension (principal); N18.32 Chronic kidney disease, stage 3b
CPT/HCPCS: 99214

== ENCOUNTER → 2025-09-21 15:04 | Outpatient (BNVA) | payer OTHER, SELFPAY | PROVIDERS: PCP Internal Medicine; Visit Provider Internal Medicine Nephrology | DX: I12.9 Hypertensive chronic kidney disease with stage 1 through stage 4 chronic kidney disease, or unspecified chronic kidney disease (principal); N18.32 Chronic kidney disease, stage 3b; Z87.891 Personal history of nicotine dependence | CPT/HCPCS: 99212 ==